=== PATIENT | male | born 1990 | race Caucasian/White ===

== ENCOUNTER 2018-01-02 13:45 | Emergency (ER) | payer MEDICAID, SELFPAY ==
[2018-01-02 13:47] VITALS: BP 148/78; PULSE 76; RESP 18; TEMP 36.6; O2SAT 96; BMI 42.4
--- NOTE | 2018-01-02 14:51 | ED.RN ---
Right facial droop noted by this nurse. Patient states he first noticed it yesterday at 1030.
--- NOTE | 2018-01-02 15:06 | ED.VISSUMM ---
- ER Visit Summary Date of Service: 01/02/18 Chief Complaint: Facial numbness and facial droop History of Present Illness: The patient is a 27 M who noted right facial numbness and facial droop yesterday. He denies any recent illness. He denies any extremity weakness. Patient has a history of PTSD and kidney stones. Physical Examination: Vital signs are unremarkable. Patient sitting upright in bed no acute distress. Heart is regular rate and rhythm. No lung sounds are clear. Abdomen is soft nontender. Neuro exam significant for right-sided facial droop. He is unable to raise his eyebrow on the right and unable to wrinkle his forehead on the right. He has decreased sensation to light touch on the right side of his face. Strength and sensation on his extremities is fully intact. 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 There is no need for significant workup at this time. He will be started on acyclovir and prednisone, first doses given here. Treatment Plan: [] Disposition: Discharge Impression: Villanueva's Palsy This note was generated with A[employer]igator Internet dictation software. It may contain incorrect words, spelling, and punctuation that were not noted in review of the chart prior to signing ED Disposition - Plan for ED Patient: Chief Complaint: Neuro S/Sx Referrals: Jessica Chen [Primary Care Provider] -
--- NOTE | 2018-01-02 15:09 | DCINST.ED_ITS ---
ED Disposition - Plan for ED Patient: Disposition: Home or Assisted Living Chief Complaint: Neuro S/Sx Instructions: ED [place] Palsy Prescriptions: Acyclovir 400 mg PO 5X/DAY #10 days Prednisone [Deltasone] 60 mg PO DAILY #15 tablet Referrals: Jessica Chen [Primary Care Provider] - 1-2 Weeks
[2018-01-02] MEDS: Acyclovir 200 MG Capsule 400 MG PO (15:18)
[2018-01-02 15:24] VITALS: PULSE 74; RESP 16; O2SAT 96
== END 2018-01-02 15:25 | disposition home or self-care (01) ==
PROVIDERS: Emergency Provider Emergency Medicine
DX: G51.0 Bell's palsy (principal); F43.10 Post-traumatic stress disorder, unspecified; E66.9 Obesity, unspecified; Z68.41 Body mass index [BMI] 40.0-44.9, adult; Z72.0 Tobacco use
CPT/HCPCS: 99283

== ENCOUNTER 2018-05-25 14:33 | Emergency (ER) | payer MEDICAID, SELFPAY ==
[2018-05-25 14:35] VITALS: BP 147/77; PULSE 97; PULSE 99; RESP 18; RESP 20; TEMP 36.7; O2SAT 94; O2SAT 95; BMI 45.1
--- NOTE | 2018-05-25 15:10 | ED.VISSUMM ---
- ER Visit Summary Date of Service: 05/25/18 Chief Complaint: Right ear pain History of Present Illness: The patient is a 27 M who started with right ear pain yesterday. He states he has had some drainage from the ear canal. No nasal congestion. Denies fever. He took nothing for it at home. Physical Examination: Vitals are reviewed. HEENT exam reveals right external ear canal swelling and drainage. TMs are clear. The rest of the exam is unremarkable Test Results: None performed Emergency Department Course and Treatment: Patient will be given Cortisporin otic for external otitis. He will follow-up with his PCP Treatment Plan: [] Disposition: Discharge Impression: External otitis This note was generated with [employer] dictation software. It may contain incorrect words, spelling, and punctuation that were not noted in review of the chart prior to signing ED Disposition - Plan for ED Patient: Chief Complaint: Ear Problem Referrals: Jessica Chen [Primary Care Provider] -
--- NOTE | 2018-05-25 15:11 | ED.DEP ---
ED Disposition - Plan for ED Patient: Disposition: Home or Assisted Living Chief Complaint: Ear Problem Instructions: ED Otitis Externa Prescriptions: Neomycin/Polymyxin B/Hydrocort [Mvatbtbp-Udjcoeamv-Jd Ear Susp] 4 drp OT TID #120 drops.susp Referrals: Joseph Ricketts,Jessica Valiente [Primary Care Provider] -
--- NOTE | 2018-05-25 15:13 | DCINST.ED_ITS ---
ED Disposition - Plan for ED Patient: Disposition: Home or Assisted Living Chief Complaint: Ear Problem Instructions: ED Otitis Externa Prescriptions: Neomycin/Polymyxin B/Hydrocort [Qsrctiqn-Kirtejizy-Vt Ear Susp] 4 drp OT TID # 120 drops.susp Referrals: Joseph Ricketts,Jessica Valiente [Primary Care Provider] -
[2018-05-25 15:18] VITALS: BP 135/78; PULSE 82; RESP 16; O2SAT 98
== END 2018-05-25 15:19 | disposition home or self-care (01) ==
PROVIDERS: Emergency Provider Emergency Medicine
DX: H60.91 Unspecified otitis externa, right ear (principal); F43.10 Post-traumatic stress disorder, unspecified; Z79.899 Other long term (current) drug therapy
CPT/HCPCS: 99282

== ENCOUNTER 2018-07-10 00:46 | Emergency (ER) | payer MEDICAID, SELFPAY ==
[2018-07-10 00:47] VITALS: BP 156/87; PULSE 113; RESP 27; TEMP 36.7; O2SAT 94; BMI 45.7
--- NOTE | 2018-07-10 01:10 | EKG12_ITS ---
Test Reason : REPEAT Blood Pressure : / mmHG Vent. Rate : 107 BPM Atrial Rate : 107 BPM P-R Int : 150 ms QRS Dur : 108 ms QT Int : 350 ms P-R-T Axes : 055 037 057 degrees QTc Int : 467 ms Sinus tachycardia Possible Inferior infarct , age undetermined Abnormal ECG Confirmed by DEANDRE BUSTAMANTE ([id number]), scientific editor KILLIAN LEE ([id number]) on 07/16/2018 1:53:22 PM Referred By: KIESHA Confirmed By:DEANDRE BUSTAMANTE
--- NOTE | 2018-07-10 01:27 | EKG12_ITS ---
Test Reason : CP Blood Pressure : / mmHG Vent. Rate : 106 BPM Atrial Rate : 106 BPM P-R Int : 122 ms QRS Dur : 102 ms QT Int : 356 ms P-R-T Axes : 042 023 047 degrees QTc Int : 472 ms Sinus tachycardia Otherwise normal ECG Confirmed by DEANDRE BUSTAMANTE ([id number]), editor in chief KILLIAN LEE ([id number]) on 07/16/2018 1:53:43 PM Referred By: JULIAN Confirmed By:DEANDRE BUSTAMANTE
--- NOTE | 2018-07-10 01:28 | ED.VISSUMM ---
- ER Visit Summary Date of Service: 07/10/18 Chief Complaint: right sided chest pain History of Present Illness: The patient is a 27 M who presents for 3-4 days of a cough, now with right-sided pleuritic chest pain. Patient states he has had a cough for the last 3-4 days productive of sputum and also pink tinged substance. He has not had any fever, congestion, rhinorrhea, abdominal pain, nausea or vomiting. Today he felt a pop in the right side of his chest and has been having right-sided pleuritic chest pain since then. It was not associated with coughing. He is not a smoker. He denies any history of coronary artery disease, asthma, COPD, diabetes, hypertension, history of DVT or PE. She has been trying cough medication without any relief. Physical Examination: Vital signs: afebrile, tachycardic, hemodynamically stable, no hypoxia on room air General: well nourished, well developed, in no distress Skin: warm, moist, no rash, no pallor HEENT: normocephalic and atraumatic; PERRL, EOMI, moist mucous membranes Cardiovascular: Tachycardic rate and regular rhythm without murmurs, no peripheral edema, 2+ pulses all distal extremities Respiratory: No increased work of breathing, lungs are clear to auscultation bilaterally, no rales, rhonchi or wheezing, tenderness to palpation of the right lateral ribs Abdominal: Abdomen is soft, nontender with normoactive bowel sounds, no guarding or rebound, no masses MSK: Moves all extremities, no deformities, normal strength Neuro: Awake and alert, oriented ?4. No facial droop, sensation and motor function intact and symmetric Test Results: Abnormal Lab Results 07/10/18 07/10/18 07/10/18 01:00 01:00 01:00 WBC 9.5 RBC 5.03 Hgb 15.0 Hct 45.3 MCV 90.1 MCH 29.8 MCHC 33.1 RDW 13.2 RDW Differential 43.5 Plt Count 239 MPV 10.6 Immature Gran % (Auto) MATTRESS WEAVER Neut % (Auto) MATTRESS WEAVER Lymph % (Auto) MATTRESS WEAVER Barren % (Auto) MATTRESS WEAVER Eos % (Auto) MATTRESS WEAVER Baso % (Auto) MATTRESS WEAVER Absolute Neuts (auto) 5.5 Absolute Lymphs (auto) 3.52 Total Counted 100 Neutrophils % (Manual) 58 Lymphocytes % (Manual) 37 Monocytes % (Manual) 3 Eosinophils % (Manual) 1 Blast Cells % 1 H* Diff Path Review May foll Reactive Lymphocytes 2+ Platelet Estimate ADEQUATE RBC Morphology NORM C+C D-Dimer Quant (PE/DVT) 0.29 Sodium 142 Potassium 3.6 Chloride 105 Carbon Dioxide 26.0 Anion Gap 11 BUN 13 Creatinine 1.13 Estim Creat Clear Calc 101.39 Est GFR (MDRD) Af Amer 99 Est GFR (MDRD) Non-Af 82 BUN/Creatinine Ratio 11.5 Glucose 106 Calcium 9.3 Troponin I < 0.015 Clinical Impression(s) from Imaging Studies Chest X-Ray 07/10/18 01:50 IMPRESSION: Normal x-ray examination of the chest. Electronically Signed: Bayron Power MD at 3:00 EDT , Service support , Emergency Department Course and Treatment: Patient is tachycardic and presents for a cough with pink tinged sputum, now with right-sided pleuritic chest pain. His EKG shows S1 and Q3 with tachycardia. D-dimer was checked to evaluate for possible PE. EKG showed no ischemic changes. D-dimer was negative. Labs were unremarkable except for 1% blasts on a manual peripheral blood smear. Chest x-ray showed no pneumonia, pneumothorax or other acute process to explain patient's right-sided pleuritic chest pain. Patient was well-appearing on reevaluation. Because of the 1% blasts on his peripheral smear, he was discussed with , who advised patient to call today to set up an appointment for very soon and either Dr. Gregorio or Dr. Rodriguez will follow up on his abnormal peripheral smear. This plan was discussed with the patient, and he stated he would definitely follow up. He was discharged home and will use OTC pain meds for his chest wall pain. Treatment Plan: [] Disposition: [] Impression: right chest wall pain, blasts on peripheral smear This note was generated with Auto Secureation software. It may contain incorrect words, spelling, and punctuation that were not noted in review of the chart prior to signing ED Disposition - Plan for ED Patient: Disposition: Home or Assisted Living Chief Complaint: Chest Pain Instructions: ED Strain Chest Wall Referrals: Florencio Gregorio DO [STAFF PHYSICIAN] - [facility],Jessica Valiente [Primary Care Provider] - Keep Pattie appointment Additional Instructions: Your blood work showed some abnormal cells that need to be followed up. Please call the office of Dr. Gregorio later this morning to schedule a follow-up appointment for as soon as possible. Your chest x-ray showed no abnormal findings concerning for pneumonia, a collapsed lung, or any other obvious cause of your right-sided chest pain. You most likely strained your chest wall from coughing the last few days. You may use vypt-qhh-ijgaccg pain medication as needed for your right side pain and cough medicine as needed for further cough. If you have any worsening of your condition or any new concerning symptoms, please return immediately to the emergency department for another evaluation.
[2018-07-10 01:39] VITALS: O2SAT 95
[2018-07-10 01:40] LABS: Basophil# 0.03 X10^3/uL; Eosinophil# 0.22 X10^3/uL; Hematocrit 45.3 % (40-54); Mean Corp Hgb Conc 33.1 g/gl (32-36); Mean Corpuscular Hgb 29.8 pg (27.0-32.0); Mean Corpuscular Volume 90.1 fL (80-94); Mean Platelet Vol. 10.6 fl (6.2-12.0); Monocyte# 0.54 X10^3/uL; Platelet Count 239 K/mm3 (150-450); RBC Distribution Width CV 13.2 % (11.6-14.6); RBC Distribution Width SD 43.5 fl (35.1-43.9); Red Blood Count 5.03 M/mm3 (4.6-6.2); White Blood Count 9.5 K/mm3 (4.4-11.0)
[2018-07-10 01:42] LABS: Differential Indicated SCAN CRITERIA MET; POSITIVE COUNT NO; POSITIVE DIFFERENTIAL NO; POSITIVE MORPHOLOGY YES
[2018-07-10 01:43] LABS: D-Dimer Quantitative (DVT/PE) 0.29 FEU/ug/m (0.27-0.49)
[2018-07-10 01:50] LABS: Anion Gap 11 (5-15); BUN 13 mg/dL (7-18); BUN/Creat Ratio 11.5 RATIO (10-20); Calcium,Total 9.3 mg/dL (8.5-10.1); Chloride 105 mmol/L (98-107); Creatinine, Serum 1.13 mg/dL (0.70-1.30); EST Glomerular Filtration Rate 82 mL/min (>60); Est Glom Filt Rate - Afr Amer 99 mL/min (>60); Estimated Creatinine Clearance 101.39 ml/min; Glucose 106 mg/dL (74-106); Potassium 3.6 mmol/L (3.5-5.1); Sodium Level 142 mmol/L (136-145)
[2018-07-10 02:30] LABS: Scan Smear per Review Criteria MANUAL DIFF
[2018-07-10 02:32] LABS: Eosinophil 1 % (0-5); Total Cells Counted 100 (MANUAL DIFF)
[2018-07-10 02:33] LABS: Platelet Estimate ADEQUATE (ADEQ); Reactive Lymphocyte 2+; Red Cell Morphology NORM C+C NORMAL (NORM C&C)
[2018-07-10 02:37] LABS: Lymphocyte # 3.52 X10^3/ul (4.0); Neutrophil # 5.51 X10^3/uL (2.7-7.7)
[2018-07-10 02:56] VITALS: BP 136/63; PULSE 96; RESP 23; O2SAT 94
--- NOTE | 2018-07-10 03:56 | ED.DEP ---
ED Disposition - Plan for ED Patient: Disposition: Home or Assisted Living Chief Complaint: Chest Pain Instructions: ED Strain Chest Wall Referrals: Joseph Ricketts,Jessica Valiente [Primary Care Provider] - Keep Pattie appointment Florencio Gregorio DO [STAFF PHYSICIAN] - 1 Day Additional Instructions: Your blood work showed some abnormal cells that need to be followed up. Please call the office of Dr. Gregorio later this morning to schedule a follow-up appointment for as soon as possible. Your chest x-ray showed no abnormal findings concerning for pneumonia, a collapsed lung, or any other obvious cause of your right-sided chest pain. You most likely strained your chest wall from coughing the last few days. You may use ewxh-mtb-wdxvixt pain medication as needed for your right side pain and cough medicine as needed for further cough. If you have any worsening of your condition or any new concerning symptoms, please return immediately to the emergency department for another evaluation.
--- NOTE | 2018-07-10 03:59 | DCINST.ED_ITS ---
ED Disposition - Plan for ED Patient: Disposition: Home or Assisted Living Chief Complaint: Chest Pain Instructions: ED Strain Chest Wall Referrals: Joseph Ricketts,Jessica Valiente [Primary Care Provider] - Keep Pattie appointment Florencio Gregorio DO [STAFF PHYSICIAN] - 1 Day Additional Instructions: Your blood work showed some abnormal cells that need to be followed up. Please call the office of Dr. Gregorio later this morning to schedule a follow-up appointment for as soon as possible. Your chest x-ray showed no abnormal findings concerning for pneumonia, a collapsed lung, or any other obvious cause of your right-sided chest pain. You most likely strained your chest wall from coughing the last few days. You may use xleg-org-kssryby pain medication as needed for your right side pain and cough medicine as needed for further cough. If you have any worsening of your condition or any new concerning symptoms, please return immediately to the emergency department for another evaluation.
[2018-07-10 04:08] VITALS: BP 103/57; PULSE 93; RESP 24; O2SAT 95
[2018-07-11 09:17] LABS: Neutrophil-Band 1 % (0-5); Neutrophil-Segmented 50 % (47-70)
[2018-07-11 09:18] LABS: Lymphocyte 46 % (19-41); Monocyte 2 % (0-10)
[2018-07-11 09:19] LABS: Absolute Neutrophil Count 4.8 X10^3/uL (2.0-7.7)
[2018-07-11 09:20] LABS: Absolute Lymphocyte Count 4.37 X10^3/ul (0.83-4.51)
[2018-07-11 14:31] LABS: Pathologist Review Reviewed
== END 2018-07-10 04:08 | disposition home or self-care (01) ==
PROVIDERS: Emergency Provider Emergency Medicine
DX: R07.89 Other chest pain (principal); R71.8 Other abnormality of red blood cells; E66.9 Obesity, unspecified; Z68.42 Body mass index [BMI] 45.0-49.9, adult; Z87.891 Personal history of nicotine dependence
CPT/HCPCS: 71046; 80048; 84484; 85025; 85379; 93005; 99284; A4216

== ENCOUNTER → 2022-05-05 | Outpatient (CLI) | payer MEDICAID, SELFPAY ==
--- NOTE | 2022-05-05 11:45 | RAD_ITS ---
EXAM: XR RIGHT ANKLE, 2 VIEWS CLINICAL INDICATION: PAIN Technologist Notes ANKLE PAIN AFTER KICKING A TRAILER TECHNIQUE: Frontal and lateral views of the right ankle. This report was created using SleepOut report generation technology. COMPARISON: None. FINDINGS: BONES/JOINTS: There is an enthesophyte involving the posterior superior calcaneus at the site of insertion of the Achilles tendon. No acute fracture. No subluxation. Normal alignment. Preservation of the joint space. No sclerotic or destructive changes observed. SOFT TISSUES: Unremarkable. No soft tissue swelling or gas. No radiopaque foreign body. RAD/Ankle 2 Views IMPRESSION: No acute findings in the right ankle. Electronically Signed: Stu Dawn MD at 17:03 EDT ,
[2022-05-05 13:15] LABS: Thyroid Stim Hormone (TSH) 0.69 uIU/mL (0.358-3.74)
== END | disposition home or self-care (01) ==
LOC: LAB 11:27
PROVIDERS: Visit Provider Nurse Practitioner Adult Health
DX: M25.579 Pain in unspecified ankle and joints of unspecified foot (principal); E03.9 Hypothyroidism, unspecified
CPT/HCPCS: 36415; 73600; 84443

== ENCOUNTER 2022-07-21 17:41 | Emergency (ER) | payer MEDICAID, SELFPAY ==
[2022-07-21 17:42] VITALS: BP 143/86; PULSE 80; RESP 16; TEMP 36.3; O2SAT 96; BMI 47.9
--- NOTE | 2022-07-21 17:50 | RAD_ITS ---
STUDY: X-RAY - RIGHT HAND, ATTENTION 2 FINGER REASON FOR EXAM: Male, 31 years old. trauma -- index finger right hand TECHNIQUE: 3 view(s) of the finger were obtained. COMPARISON: None. FINDINGS: Normal metacarpal head. Normal metacarpophalangeal joint. Normal proximal phalanx. Normal middle phalanx. Normal distal phalanx. Normal proximal interphalangeal joint. Normal distal interphalangeal joint. RAD/Finger(s) Min 2 Views IMPRESSION: Normal x-ray examination of the finger. Electronically Signed: Kyle Earl MD at 18:07 EDT ,
--- NOTE | 2022-07-21 17:50 | EX.ED.UPPERE ---
HPI History of Present Illness Chief Complaint: Upper Extremity Injury Informant: patient Narrative Narrative: Patient is concerned about injury to his right index fingertip. Yesterday he cut off a little bit of the skin on the tip on a mere in his bathroom. Today he had a heavy box landed on it and his finger got caught between the edge of a car trunk and the box. Range of motion is intact. No bleeding. He thinks tetanus is up-to-date. 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 Verified 05/05/22 10:46 Social History Smoking Status: Current some day smoker tobacco type: cigarettes and e-cigarettes ROS ROS ED Constitutional Constitutional ED: Denies chills or fever(s) Gastrointestinal Gastrointestinal: Denies nausea or vomiting Integumentary Reports Abrasions and other Details: Abrasion/partial shallow skin avulsion right index Neurologic Neurologic: Denies paresthesias or weakness Hematologic/Lymphatic Hematologic/Lymphatic: Denies easy bleeding or easy bruising EXAM Physical Exam Const Vital Signs: 07/21/22 17:42 07/21/22 17:42 Temperature 97.3 F L 97.3 F L Temperature Source Temporal Temporal Pulse Rate 80 80 Respiratory Rate 16 16 Blood Pressure 143/86 H 143/86 H Blood Pressure Mean 105 105 Pulse Ox 96 96 Oxygen Delivery Method Room Air Room Air Positive well nourished and well developed General Appearance ED: well developed and NAD HEENT normocephalic and atraumatic Resp normal respiratory effort Extremity full ROM Extremity Narrative: Superficial skin avulsion from lateral aspect of right index finger. Tendon function fully intact. Sensation intact. The finger itself is not notably swollen. There is no subungual hematoma. Neuro no sensory deficits noted Sensorium / Orientation: alert Motor Exam: strength 5/5 throughout Psych mental status grossly normal Skin Skin Narrative: See above. MDM MDM MDM Narrative Medical decision making narrative: Three-view x-ray of the patient's finger looked at by me and read by radiology shows no sign of acute fracture. I do not think the patient needs any specific treatment. He has a superficial avulsion of skin that will heal on its own. He should just keep it clean and relatively dry. We discussed signs of infection and reasons to return. Discharge Plan Triage Chief Complaint: Upper Extremity Injury ED Provider: Arthur Berry Dx/Rx/DC Orders Clinical Impression: Avulsion of skin of finger, Contusion of right index finger Prescriptions: No Action quetiapine [Seroquel] 400 MG tablet 400 mg PO QHS lithium carbonate 450 MG Tablet.Er 450 mg PO DAILY levothyroxine 25 MCG tablet 25 mcg PO DAILY vactvgsd-fzrhuuhrl-WB 10 ML drops,suspension 4 drp OT TID Qty: 120 0RF [facility] - 1 Week if not improving Disposition Disposition: Home, Self Care
== END 2022-07-21 18:37 | disposition home or self-care (01) ==
LOC: ED 17:56
PROVIDERS: Emergency Provider Emergency Medicine; Visit Provider Emergency Medicine
DX: S60.021A Contusion of right index finger without damage to nail, initial encounter (principal); F17.210 Nicotine dependence, cigarettes, uncomplicated; X58.XXXA Exposure to other specified factors, initial encounter
CPT/HCPCS: 73140; 99283

== ENCOUNTER → 2024-11-18 | Outpatient (CLI) | payer MEDICAID, SELFPAY ==
[2024-11-18 12:39] LABS: Hematocrit 47.9 % (40-54); Mean Corp Hgb Conc 33.4 g/dL (32-36); Mean Corpuscular Hgb 30.1 pg (27.0-32.0); Mean Corpuscular Volume 90.2 fL (80-94); Mean Platelet Vol. 10.4 fl (6.2-12.0); Platelet Count 194 K/mm3 (150-450); RBC Distribution Width CV 12.9 % (11.6-14.6); RBC Distribution Width SD 41.6 fl (35.1-43.9); Red Blood Count 5.31 M/mm3 (4.6-6.2); White Blood Count 8.7 K/mm3 (4.4-11.0)
[2024-11-18 13:21] LABS: AST(SGOT) 27 U/L (15-37); Alanine Aminotransfer ALT/SGPT 57 U/L (16-61); Albumin, Serum 3.7 g/dL (3.2-5.0); Alkaline Phosphatase 73 U/L (45-117); Anion Gap 5 (5-15); BUN 13 mg/dL (7-18); BUN/Creat Ratio 12.1 RATIO (10-20); Calcium,Total 8.9 mg/dL (8.5-10.1); Chloride 110 mmol/L (98-107); Cholesterol 166 mg/dL (200); Creatinine, Serum 1.07 mg/dL (0.70-1.30); EST Glomerular Filtration Rate 84 mL/min (>60); Est Glom Filt Rate - Afr Amer 102 mL/min (>60); Globulin 3.7 g/dL (2.2-4.2); Glucose 125 mg/dL (74-106); High Density Lipoprotein 42 mg/dL; Potassium 3.4 mmol/L (3.5-5.1); Protein, Total 7.4 g/dL (6.4-8.2); Sodium Level 138 mmol/L (136-145); T4 Free Direct 0.97 ng/dL (0.76-1.46); Triglycerides 213 mg/dL; Very Low Density Lipoprotein 43 mg/dL (5-40)
[2024-11-18 14:13] LABS: Hemoglobin A1c 5.2 % (3.8-5.6)
== END | disposition home or self-care (01) ==
LOC: VSLAB 10:37
PROVIDERS: PCP Nurse Practitioner Family; Visit Provider Nurse Practitioner Family
DX: E03.9 Hypothyroidism, unspecified (principal); E66.9 Obesity, unspecified
CPT/HCPCS: 36415; 80053; 80061; 82306; 83036; 84439; 84443; 85027; 97110

== ENCOUNTER 2024-11-25 15:30 | Outpatient (RCR) | payer MEDICAID, SELFPAY ==
--- NOTE | 2024-10-20 14:21 | HP.PTEVAL ---
Patient's Visit Information Visit Information Visit Information: MARIKA LOZOYA is a 34 year old M referred to Physical Therapy by DANIELLE Marrero with a diagnosis of RADICULOPATHY ,LUMBAR REGION. Date of Evaluation: 10/20/24 Physical Therapist: Unruly Warner, PT, Cert MDT, OCS Visit Plan Frequency: 2x /Week Duration: 4 Weeks Plan: PT INTERVENTIONS MIK EX'S ,DLS ,LE FLEXABILITY ,POSTURE/BODY MECHANICS AND MODALTIES Subjective Subjective: tHIS 34 y/o male presents to physical therapy with lumbar radiculopathy left leg. 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 This pain resolved after working out and time. Patient current pain has been going on for the last two months with no improvement. No injury or incident that he knows of to cause this back pain. His pain in located in the center of his back. Patient states the pain is worse on the left side and radiates down the back of his leg and calf. He describes the pain as a sharp burning. Seen did x-rays -. MRI needs PT thus recommend PT. Aggravating factors lifting ,bending ,standing .Alleviating factors resting and walking. Patient denies paresthesia/tingling -. Bowel/bladder -. Coughing/sneezing-. Patient sleeps good. Patient condition affects QOL and function. Patient goals to decrease pain. SOCIAL: single VOACTION: 2 [employer] OFF WORK[employer] JOB Pain Bilateral Back: Pain Intensity (Out of 10): 6 Pain Intensity Range: 10 Left Lower Extremity: Pain Intensity (Out of 10): 5 Pain Intensity Range: 10 Objective Objective: POSTURE: WFL GAIT: reciprocal pattern NEURO: denies paresthesia/tingling,reflexes L3-4 ,L4-5,L5-S1 1/3 PALAPTION: unremarkable FLEXABILITY:hamstrings min loss LUMBAR ROM: flexion min loss ,extension min loss ,side glides min loss MMT: quads/hams 4/5 .hip flexion 4/5 ,ankle 4/5 Special Tests L/S Slump test left side: Negative L/S Slump test right side: Negative L/S Left Straight Leg Raise: Negative L/S Right Straight Leg Raise: Negative Lumbar Standing: Flexion - Mechanical Response: No effect Lumbar Standing: Flexion - Symptoms During Testing: No effect Lumbar Standing: Flexion - Symptoms After Testing: No effect Lumbar Standing: Extension - Mechanical Response: No effect Lumbar Standing: Extension - Symptoms During Testing: Decreases Lumbar Standing: Extension - Symptoms After Testing: Better Lumbar Standing: Right Side Glides - Mechanical Response: No effect Lumbar Standing: Right Side [place] - Symptoms During Testing: No effect Lumbar Standing: Right Side [place] - Symptoms After Testing: No effect Lumbar Standing: Left Side [place] - Mechanical Response: No effect Lumbar Standing: Left Side [place] - Symptoms During Testing: No effect Lumbar Standing: Left Side [place] - Symptoms After Testing: No effect Lumbar Lying: Flexion - Mechanical Response: No effect Lumbar Lying: Flexion - Symptoms During Testing: Increases Lumbar Lying: Flexion - Symptoms After Testing: No worse Lumbar Lying: Extension - Mechanical Response: No effect Lumbar Lying: Extension - Symptoms During Testing: Decreases Lumbar Lying: Extension - Symptoms After Testing: Better Balance/Special Test Scores Oswestry Low Back Score: 17 Goals Goal 1:: Patient to be I with LUMBAR spine Goal Time Frame: 4-6 Weeks Goal 2:: Patient to improve lumbar ROM for function of recovery to lifting Goal Time Frame: 4-6 Weeks Goal 3:: Patient to improve back oswestry score by 5 points to improve function Goal Time Frame: 4-6 Weeks Goal 4:: Patient demonstrate 70% improvement with less pain and improved function Goal Time Frame: 4-6 Weeks Rehabilitation Potential Physical Therapy Diagnosis: This patient has possible disc with symptoms worse with bending ,lifting better with extension thus benefit from skilled PT Rehabilitation Potential: Good Anticipated Interventions Patient/Client Instruction: Educate patient on: Condition and Plan of Care For the Purpose of:: To decrease pain, To increase ROM, To improve muscle performance and motor function, To improve ability to perform ADL's, To improve performance and independence with ADL's, To improve ability of physical actions for home/community/work/leisure, To improve health of tissue, To decrease soft tissue restriction and To increase flexibility/ROM Therapeutic Exercise to Include: Strength training, Body mechanics, Postural training, Flexibilty training, Dynamic Lumbar Stabilization and Mik Exercises For the Purpose of:: To decrease pain, To increase ROM, To improve muscle performance and motor function, To improve ability to perform ADL's, To increase tolerance to activity/condition/position, To improve ability of physical actions for home/community/work/leisure, To improve health of tissue, To decrease soft tissue restriction and To increase flexibility/ROM TENS: Yes IF ES: Yes Cryotherapy (ice pack, ice massage): Yes Thermo therapy (hot pack): Yes Ultrasound (thermal/non thermal): Yes For the Purpose of:: To decrease pain, To increase ROM, To improve nutrient delivery to tissue and To increase oxygenation perfusion Text: Thank you for the opportunity to evaluate your patient. For Medicare and Medicare HMO plans, please review the plan of care and approve it. It will need to be FAXED BACK to us at [phone] for Medicare purposes. For Medicare only, by signing this I certify the plan of care. Please let me know if there are questions or concerns regarding this plan of care. Physician Signature: Date:
--- NOTE | 2024-11-25 15:54 | HP.PTDCSUM ---
Discharge Summary D/C summary: It has been my pleasure to treat MARIKA LOZOYA referred by DANIELLE Marrero, with the diagnosis of RADICULOPATHY ,LUMBAR REGION for a total of 9 visit(s). Discharge Date: Please see the following information for a summary of their discharge status. Subjective Subjective: PT has helped alot No pain Pain Bilateral Back: Pain Intensity (Out of 10): 0 Left Lower Extremity: Pain Intensity (Out of 10): 0 Overall Improvement % Improvement: 90 Objective Objective/Function: POSTURE: WFL GAIT: reciprocal pattern NEURO: denies paresthesia/tingling,reflexes L3-4 ,L4-5,L5-S1 1/3 PALAPTION: unremarkable FLEXABILITY:hamstrings min loss LUMBAR ROM: flexion WNL ,extension min loss ,side glides WFL MMT: quads/hams 4/5 .hip flexion 4/5 ,ankle 4/5 Goals Goal 1:: Patient to be I with LUMBAR spine Goal Progress: Goal Met Goal 2:: Patient to improve lumbar ROM for function of recovery to lifting Goal Progress: Goal Met Goal 3:: Patient to improve back oswestry score by 5 points to improve function Goal Progress: Goal Met Goal 4:: Patient demonstrate 70% improvement with less pain and improved function Goal Progress: Goal Met Plan Plan: D/C D/C Information d/c sentence: If there are questions or concerns regarding this patient's physical therapy, please feel free to call me at [phone]. Thank you for the referral of this patient. Sincerely, Unruly Warner, PT, Cert MDT, OCS Balance/Gait/Functional tests Balance/Special Test Scores Oswestry Low Back Score: 0 Improvement % Improvement: 90
== END 2024-11-25 19:00 | disposition home or self-care (01) ==
LOC: PT 15:30
PROVIDERS: Referring Provider Student in an Organized Health Care Education/Training Program; Visit Provider Student in an Organized Health Care Education/Training Program
DX: M54.16 Radiculopathy, lumbar region (principal)
CPT/HCPCS: 97110; 97161; 97530

== ENCOUNTER → 2025-02-17 | Outpatient (CLI) | payer MEDICAID, SELFPAY ==
[2025-02-17 12:44] LABS: Hemoglobin 15.6 g/dL (13.0-16.5); Mean Corp Hgb Conc 33.9 g/dL (32-36); Mean Corpuscular Hgb 30.3 pg (27.0-32.0); Mean Corpuscular Volume 89.3 fL (80-94); Mean Platelet Vol. 9.9 fl (6.2-12.0); Platelet Count 196 K/mm3 (150-450); RBC Distribution Width CV 12.7 % (11.6-14.6); RBC Distribution Width SD 41.5 fl (35.1-43.9); Red Blood Count 5.15 M/mm3 (4.6-6.2); White Blood Count 8.6 K/mm3 (4.4-11.0)
[2025-02-17 13:35] LABS: Hemoglobin A1c 5.4 % (<=5.6)
[2025-02-17 13:58] LABS: ALB/GLOB Ratio 1.4 RATIO (0.9-2.4); AST(SGOT) 33 U/L (<=37); Alanine Aminotransfer ALT/SGPT 54 U/L (<=46); Alkaline Phosphatase 66 U/L (40-129); Anion Gap 11 (5-15); BUN 11 mg/dL (4-19); BUN/Creat Ratio 10.4 RATIO (10-20); Calcium,Total 9.1 mg/dL (7.6-11.0); Carbon Dioxide 21.6 mmol/L (21.0-32.0); Chloride 107 mmol/L (98-108); Creatinine, Serum 1.05 mg/dL (0.70-1.20); EST Glomerular Filtration Rate 96 (>60); Globulin 2.8 g/dL (2.2-4.2); Glucose 128 mg/dL (70-99); Potassium 3.6 mmol/L (3.3-5.1); Protein, Total 6.8 g/dL (5.9-8.4); Sodium Level 140 mmol/L (133-145); Total Bilirubin 0.34 mg/dL (0.00-1.30)
[2025-02-17 14:02] LABS: Vitamin B12 532 pg/mL (180-914)
== END | disposition home or self-care (01) ==
LOC: VSLAB 11:59
PROVIDERS: PCP Nurse Practitioner Family; Visit Provider Nurse Practitioner Family
DX: E03.9 Hypothyroidism, unspecified (principal); E55.9 Vitamin D deficiency, unspecified; R73.9 Hyperglycemia, unspecified; K76.0 Fatty (change of) liver, not elsewhere classified
CPT/HCPCS: 36415; 80053; 82306; 82607; 83036; 84439; 84443; 85027

== ENCOUNTER → 2025-05-19 | Outpatient (CLI) | payer MEDICAID, SELFPAY ==
[2025-05-19 12:30] LABS: AST(SGOT) 44 U/L (<=37); Alanine Aminotransfer ALT/SGPT 77 U/L (<=46); Albumin, Serum 4.0 g/dL (3.5-5.0); Alkaline Phosphatase 67 U/L (40-129); Anion Gap 11 (5-15); BUN 12 mg/dL (4-19); BUN/Creat Ratio 12.7 RATIO (10-20); Calcium,Total 8.9 mg/dL (7.6-11.0); Carbon Dioxide 20.6 mmol/L (21.0-32.0); Chloride 107 mmol/L (98-108); Globulin 2.5 g/dL (2.2-4.2); Glucose 157 mg/dL (70-99); Potassium 3.9 mmol/L (3.3-5.1)
== END | disposition home or self-care (01) ==
LOC: VSLAB 10:29
PROVIDERS: PCP Nurse Practitioner Family; Visit Provider Nurse Practitioner Family
DX: R73.9 Hyperglycemia, unspecified (principal); K76.0 Fatty (change of) liver, not elsewhere classified
CPT/HCPCS: 36415; 80053; 83036

== ENCOUNTER → 2025-06-03 | Outpatient (CLI) | payer MEDICAID, SELFPAY | END | disposition home or self-care (01) | LOC: SL 19:42 | PROVIDERS: PCP Nurse Practitioner Family; Referring Provider Nurse Practitioner Family; Visit Provider Nurse Practitioner Family | DX: G47.10 Hypersomnia, unspecified (principal) | CPT/HCPCS: 95810 ==

== ENCOUNTER → 2025-06-30 | Outpatient (CLI) | payer MEDICAID, SELFPAY ==
--- OUTSIDE RECORDS SUMMARY | 2025-06-30 22:38 | XMS RPT_ITS | CCD ---
Author Organization [facility]iniSynd Care Team Providers Care Vineyard Tender Name Role Phone BORIS MOORE (BURNER TECHNICIAN) Attending Unavaila ble [facility] Referring Unavailable [facility] Primary Care Unavailable BORIS MOORE (BURNER TECHNICIAN) Attending Unavaila ble [facility] Referring Unavailable [facility] Primary Care Unavailable BORIS MOORE (BURNER TECHNICIAN) Attending Unavaila ble BORIS MOORE (BURNER TECHNICIAN) Referring Unavaila ble [facility] Primary Care Unavailable Fuad Billingsley Unavailable Unavailable Fuad Billingsley Unavailable Unavailable None, No PCP Unavailable Unavailable Required, No Pcp Unavailable Unavailable Fuad Billingsley Unavailable Unavailable Angela Allen Unavailable Unavail able Margaret Meeks Unavailable Unavailable Fuad Billingsley Unavailable Unavailable Unavailable Juliette Zamorano NP Unavailable [phone] [facility] Primary Care Provider Un available [employer] Primary Care Provider Un available Milton Schumacher Unavailable [phone] KOURTNEY SHERWOOD Referring Unavailable Milton Schumacher MD Unavailable Juliette Zamorano NP Unavailable Jaun SEAMER OPERATOR-CJuliette Primary Care Provider [phone] Jaun SEAMER OPERATOR-CJuliette Attending Provider [facility] Primary Care Pro vider Claudia Perez Attending Provider [phone] Claudia Perez Referring Provider KOURTNEY SHERWOOD Attending Unavailable MILTON SCHUMACHER Referring Unavailable DAHLIA HOLCOMB Attending Unavailable MILTON SCHUMACHER Referring Unavailable CAITY, CHIQUITA Referring Unavailable CAITY, CHIQUITA Referring Unavailable CHIQUITA JUAREZ Attending Unavailable VANIA VELASQUEZ Attending Unavailable Jaun SEAMER OPERATOR-C, Juliette Primary Care Provider Jaun SEAMER OPERATOR-C, Juliette Attending Provider Jaun SEAMER OPERATOR-C, Juliette Referring Provider Jaun SEAMER OPERATOR-C, Juliette Primary Care Provider Jaun SEAMER OPERATOR-C, Juliette Attending Provider Alexei SEAMER OPERATOR-C, Selina Attending Provider [facility] Unavailable Rodolfo Ortiz Attending Unavailable Jaun VSC, Juliette Primary Care Unavailabl e Jaun VSC, Juliette Attending Unavailabl e Jaun VSC, Juliette Primary Care Unavailabl e Jaun VSC, Juliette Attending Unavailabl e Jaun VSC, Juliette [facility] Un[facility] Claudia Bianchi Attending Unavailable Tash Claudia Referring Unavailable Jaun VSC, Juliette Primary Care Unavailabl e Jaun VSC, Juliette Attending Unavailabl e Jaun VSC, Juliette Referring Unavailabl e Jaun VSC, Juliette Primary Care Unavailabl e Jaun VSC, Juliette Attending Unavailabl e Jaun VSC, Juliette Primary Care Unavailabl e Jaun VSC, Juliette [facility] Unavailable TashClaudia Attending Unavailable Tash, Claudia Referring Unavailable Jaun VSC, Juliette Referring Unavailabl e Jaun VSC, Juliette Primary Care Unavailabl Selina Mccormick NP Attending Unavailable [facility], [facility] Referring Unavailable Claudia Bianchi Attending Unavailable Allergies Allergy Classification Reported Allergen(s) Allergy Type Date of Onset Reaction(s) Facility Opioid Agonists (1 source) Morphine Drug Allergy Other [facility] (20 sources) Morphine; Translations: [MORPHINE] Drug Allergy 5 Other: See Comments, Mental Status Change [employer] [facility] Rep[facility] (14 sources) Seasonal allergy; Translations: [SEASONAL ALLERGIES] Propensity to adverse reactions (disorder) 8 Itching [facility] Repository Medications Current Medications Medication Drug Class(es) Dates Sig (Normalized) Sig (Original) 24 hr buPROPion hydrochloride 150 mg extended release oral tablet (12 sources) Aminoketone Start: 06-19-2025 take 1 tablet by mouth once daily in the morning Bupropion Hcl (Wellbutrin Xl) 150 mg tablet extended release 24 hr Active 150 mg PO EVERY MORNING June 19, 2025 12:00am Start: 03-27-2023 take 1 tablet by tova th once daily in the morning buPROPion XL (WELLBUTRIN XL) 150 mg 24 hr tablet TAKE 1 TABLET BY MOUTH ONCE DAILY IN THE MORNING 03/27/2023 Active Comment on above: TAKE 1 TABLET BY TOVA TH ONCE DAILY IN THE MORNING cholecalciferol 0.125 mg oral capsule (1 source) Vitamin D Start: take 1 capsule by mouth once daily Cholecalciferol (Vitamin D3) 125 mcg (5,000 unit) capsule Active 125 ug PO daily June 19, 2025 12:00am dicyclomine hydrochloride 10 mg oral tablet (7 sources) Anticholinergic Start: 024 Dicyclomine 10 mg capsule Active mg PO September 01, 2024 12:00am Start: 01-18-2021 take 1 tablet by tova th at mealtime as needed Dicyclomine HCl - 20 MG Oral Tablet TAKE 1 TABLET 1-3 TIMES A DAY WITH MEALS NEEDED Quantity: 90 Refills: 3 Ordered: 18-Jan-2021 Malorie Bergeron Start : 18-Jan-2021 Active doxycycline monohydrate 100 mg oral tablet (1 source) Tetracycline-class Drug Start: 06-26-2024 End: 07-01-2024 take 1 tablet by mouth twice daily doxycycline monohydrate 100 mg tablet Indications: Bacterial pneumonia Take 1 tablet by mouth two times a day for 5 days. 10 tablet 06/26/2024 07/01/2024 Active ketorolac tromethamine 5 mg/ml ophthalmic solution (1 source) Nonsteroidal Anti-inflammatory Drug, Cyclooxygenase Inhibitor Start: 03-23-2021 End: 04-01-2021 take 1 drop(s) into the eye(s) four times daily Acular 0.5% ophthalmic solution ; 1 drop(s) in each affected eye 4 times a day Quantity: 1 Refills: 0 Ordered: 23-Mar-2021 Angela Allen Start: 23-Mar-2021 End: 01-Apr-2021 Generic Substitution Allowed Comments: For the eye. Comment on above: For the eye. levothyroxine (20 sources) l-Thyroxine Start: 09-01-2024 take 1 tablet by mouth once daily Levothyroxine 50 mcg tablet Active 50 ug PO daily September 01, 2024 12:00am Start: 10-07-2019 take 1 tablet by tova th in the morning Levothyroxine Sodium 50 MCG Oral Tablet TAKE 1 TABLET BY MOUTH IN THE MORNING Quantity: 30 Refills: 0 DO Start : 07-Oct-2019 Active Start: 03-20-2019 take 1 tablet by tova th once daily levothyroxine (SYNTHROID) 100 mcg tablet Indications: Hypothyroidism, acquired Take 1 tablet by mouth once daily. 90 tablet 03/20/2019 Active Start: 05-25-2018 End: 09-01-2024 take 1 tablet by mouth once daily Levothyroxine 25 MCG tablet Discontinued 25 ug PO DAILY May 25, 2018 12:00am September 01, 2024 10:10am Comment on above: Take 1 tablet by tova th once daily. polymyxin b 61203 unt/ml / trimethoprim 1 mg/ml ophthalmic solution (1 source) Dihydrofolate Reductase Inhibitor Antibacterial, Polymyxin-class Antibacterial Start: End: 4 take 1 drop(s) into the eye(s) every four hours trimethoprim-polym yxin (POLYTRIM) 10,000 unit- 1 mg/mL ophthalmic solution Indications: [place] eye disease of left eye Use 1 Drop in the left eye every 4 hours for 7 days. 10 mL 0 01/21/2024 01/28/2024 Active Comment on above: Use 1 Drop in the le ft eye every 4 hours for 7 days. QUEtiapine 400 mg oral tablet (20 sources) Atypical Antipsychotic Start: 5 take 1 tablet by mouth twice daily Quetiapine (Seroquel) 100 mg tablet Active 100 mg PO TWICE A DAY June 19, 2025 12:00am Start: 03-27-2023 take 1 tablet by tova th every twelve hours QUEtiapine (SEROQUEL) 100 mg tablet Take 1 tablet by mouth every 12 hours 6am/6pm. 03/27/2023 Active Start: 08-01-2021 take 1 tablet by tova th twice daily QUEtiapine Fumarate 100 MG Oral Tablet Take 1 tablet twice daily Quantity: 0 Refills: 0 Ordered: 01-Aug-2021 StefanFuad espinosa DO Start : 01-Aug-2021 Active Start: 07-09-2015 End: 06-19-2025 take 1 tablet by mouth at bedtime Quetiapine (Seroquel) 400 mg tablet Active 400 mg PO AT BEDTIME June 19, 2025 9:02am Comment on above: Take 1 tablet by tova th every 12 hours 6am/6pm. topiramate 100 mg oral tablet (17 sources) Start: 06-19-2025 take 1 tablet by mouth once daily Topiramate (Topamax) 100 mg tablet Active 100 mg PO daily June 19, 2025 12:00am Start: 03-11-2019 take 1 tablet by tova th once daily topiramate (TOPAMAX) 50 mg tablet Take 1 tablet by mouth once daily. 03/11/2019 Active take 7 tablets by mo uth once daily Topamax 50 mg oral tablet ; orally once a day Quantity: 0 Refills: 0 Ordered: 11-Oct-2020 Terry Thompson Generic Substitution Allowed Comment on above: Take 1 tablet by tova th once daily. Completed/Discontinued Medications Medication Drug Class(es) Dates Sig (Normalized) Sig (Original) amoxicillin 875 mg / clavulanate 125 mg oral tablet (1 source) Penicillin-class Antibacterial Start: 06-01-2019 End: 06-10-2019 take 1 tablet by mouth every twelve hours Augmentin 875 mg-125 mg oral tablet ; 1 tab(s) orally every 12 hours x 10 days Quantity: 20 Refills: 0 Ordered: 01-Jun-2019 Mauricio Donato Start: 01-Jun-2019 End: 10-Jun-2019 Status: Other Generic Substitution Allowed Comments: Finish all this medication unless otherwise directed by prescriber.Take with food or milk. Comment on above: Finish all this medi cation unless otherwise directed by prescriber.Take with food or milk. Echinacea 500 mg cap (8 sources) Start: 03-21-2013 End: 09-23-2024 take 1 capsule by mouth every week Echinacea 500 mg cap Take by mouth once each week. 0 03/21/2013 09/23/2024 Discontinued Start: 03-21-2013 take 1 capsule by [facility] every week Echinacea 500 mg cap Take by mouth once each week. 0 03/21/2013 Active Comment on above: Take by mouth once e ach week. hydrocortisone 10 mg/ml / neomycin 3.5 mg/ml / polymyxin b [id number] unt/ml otic suspension (6 sources) Aminoglycoside Antibacterial, Polymyxin-class Antibacterial, Corticosteroid Start: 05-25-2018 End: 09-01-2024 Pddsckpg-Xpcivwldt-Xj 10 ML drops,suspension Discontinued 4 NMA OT THREE TIMES A DAY 120 0 May 25, 2018 12:00am September 01, 2024 10:10am lithium carbonate 150 mg oral capsule (19 sources) Start: 08-09-2020 Citrus Carbonate 150 MG Oral Capsule Quantity: 0 Refills: 0 Ordered: 09-Aug-2020 Fuad Billingsley DO Start : 09-Aug-2020 Active Start: 08-09-2020 Citrus Carbon ate 150 MG Oral Capsule Refills: 0 Fuad Billingsley DO Start : 09-Aug-2020 Active Start: 01-02-2018 End: 09-23-2024 take 1 tablet by mouth once daily Citrus Carbonate 450 MG tablet extended release Discontinued 450 mg PO DAILY January 02, 2018 1:00am September 01, 2024 10:10am take 7 tablets by [facility] three times daily lithium 450 mg oral tablet, extended release ; orally 3 times a day Quantity: 0 Refills: 0 Ordered: 11-Oct-2020 Terry Thompson Generic Substitution Allowed Comment on above: Take 450 mg by mouth once daily. In the evening. ofloxacin 3 mg/ml otic solution (1 source) Quinolone Antimicrobial Start: 06-01-20 19 End: 06-10-20 ofloxacin 0.3% otic solution ; 5 drop(s) in each affected ear 2 times a day x 10 days Quantity: 1 Refills: 0 Ordered: 01-Jun-2019 Mauricio Donato Start: 01-Jun-2019 End: 10-Jun-2019 Status: Other Generic Substitution Allowed Comments: For the ear. Comment on above: For the ear. traZODone hydrochloride 50 mg oral tablet (8 sources) Serotonin Reuptake Inhibitor Start: 03-11-20 End: 11-19-20 24 take 1 tablet by mouth every twenty-four hours as needed traZODone (DESYREL) 50 mg tablet Take 1 tablet by mouth at bedtime as needed. 03/11/2019 09/23/2024 Discontinued Comment on above: Take 1 tablet by tova th at bedtime as needed. Problems Active Problems Problem Classification Problem Date Documented Da te Episodic/Chronic Acute and chronic tonsillitis (11 sources) Enlarged tonsil; Translations: [Hypertrophy of tonsils] Onset: 10-18-2013 10-31-2021 Chronic Anxiety disorders (11 sources) Posttraumatic stress disorder; Translations: [Post-traumatic stress disorder, unspecified] Onset: 06-04-2013 06-04-2013 Chronic Contraceptive and procreative management (4 sources) Patient encounter status; Translations: [Encounter for other general counseling and advice on contraception] Onset: 03-12-2025 09-23-2024 Episodic Diabetes mellitus without complication (1 source) Hyperglycemia, unspecified; Translations: [Hyperglycemia, unspecified] Onset: 05-25-2025 Episodic Esophageal disorders (3 sources) Gastro-esophageal reflux disease with esophagitis; Translations: [Reflux esophagitis] Chronic Genitourinary symptoms and ill-defined conditions (3 sources) Polyuria; Translations: [Polyuria] Episodic Inflammation; infection of eye (except that caused by tuberculosis or sexually transmitteddisease) (1 source) Conjunctivitis; Translations: [Other mucopurulent conjunctivitis, left eye] 01-21-2024 Episodic Miscellaneous mental health disorders (17 sources) Psychogenic hyperventilation; Translations: [Other somatoform disorders] Onset: 06-04-2013 06-04-2013 Chronic Mood disorders (19 sources) Mixed bipolar affective disorder; Translations: [Bipolar I disorder, most recent episode (or current) mixed, unspecified] Onset: 03-23-2017 03-23-2017 Chronic Open wounds of extremities (5 sources) Open wound of finger; Translations: [Unspecified open wound of unspecified finger without damage to nail, initial encounter] 07-29-2022 Episodic Other ear and sense organ disorders (2 sources) Asymmetrical sensorineural hearing loss; Translations: [Sensorineural hearing loss, bilateral] 05-01-2024 Chronic Other ear and sense organ disorders (1 source) Sensorineural hearing loss, bilateral; Translations: [ASNHL (asymmetrical sensorineural hearing loss)] Onset: 05-21-2024 Chronic Other ear and sense organ disorders (2 sources) Tinnitus of left ear; Translations: [Tinnitus, left ear] 05-01-2024 Episodic Other ear and sense organ disorders (1 source) Abnormal auditory perception; Translations: [Other abnormal auditory perceptions, bilateral] 05-01-2024 Episodic Other ear and sense organ disorders (1 source) Bilateral tinnitus; Translations: [Tinnitus, bilateral] 05-01-2024 Episodic Other ear and sense organ disorders (1 source) Ear pressure sensation; Translations: [Other specified disorders of ear, bilateral] 05-01-2024 Episodic Other ear and sense organ disorders (1 source) Tinnitus, left ear; Translations: [Tinnitus, left ear] Onset: 05-21-2024 Episodic Other gastrointestinal disorders (3 sources) Irritable bowel syndrome; Translations: [Irritable bowel syndrome] Chronic Other nutritional; endocrine; and metabolic disorders (2 sources) Obesity; Translations: [Morbid obesity] Chronic Other nutritional; endocrine; and metabolic disorders (1 source) Severe obesity; Translations: [Morbid obesity] Chronic Other nutritional; endocrine; and metabolic disorders (11 sources) Morbid obesity; Translations: [Morbid (severe) obesity due to excess calories] Onset: 09-13-2015 09-13-2015 Chronic Other nutritional; endocrine; and metabolic disorders (11 sources) Body mass index 40+ - severely obese; Translations: [Morbid (severe) obesity due to excess calories] Onset: 12-12-2018 12-12-2018 Chronic Other nutritional; endocrine; and metabolic disorders (3 sources) Excessive thirst; Translations: [Polydipsia] Episodic Pneumonia (except that caused by tuberculosis or sexually transmitted disease) (1 source) Bacterial pneumonia; Translations: [Unspecified bacterial pneumonia] 06-26-2024 Episodic Residual codes; unclassified (13 sources) Obstructive sleep apnea syndrome; Translations: [Obstructive sleep apnea (adult) (pediatric)] Onset: 10-18-2013 10-31-2021 Chronic Comment on above: AHI 42.7 Residual codes; unclassified (1 source) Obstructive sleep apnea (adult) (pediatric); Translations: [Obstructive sleep apnea (adult) (pediatric)] Onset: 06-23-2025 Chronic Residual codes; unclassified (1 source) Hypersomnia, unspecified; Translations: [Hypersomnia, unspecified] Onset: 06-12-2025 Chronic Residual codes; unclassified (4 sources) Needs influenza immunization; Translations: [Need for prophylactic vaccination and inoculation against influenza] Episodic Substance-related disorders (11 sources) Cannabis-induced anxiety disorder; Translations: [Cannabis abuse with cannabis-induced anxiety disorder] Onset: 03-23-2017 03-23-2017 Chronic Superficial injury; contusion (12 sources) Abrasion of left cornea; Translations: [Superficial injury of cornea] 03-23-2021 Episodic Syncope (6 sources) Syncope; Translations: [Syncope and collapse] 07-11-2015 Episodic Thyroid disorders (6 sources) Hypothyroidism; Translations: [Hypothyroidism, unspecified] Onset: 08-19-2024 09-01-2024 Chronic Unclassified (2 sources) Morbid (severe) obesity due to excess calories Onset: 12-12-2018 Unclassified (2 sources) LEFT EYE PAIN 03-23-2021 Comment on above: LEFT EYE PAIN Unclassified (1 source) 6 MONTH F/U 01-27-2021 Comment on above: 6 MONTH F/U Unclassified (1 source) 4 TO 6 MONTHS 03-22-2021 Comment on above: 4 TO 6 MONTHS Unclassified (1 source) Abrasion of left cornea, initial encounter 03-23-2021 Unclassified (1 source) Low back pain, unspecified; Translations: [Low back pain, unspecified] Onset: 09-11-2024 Past or Other Problems Problem Classification Problem Date Documented Date Episodic/Chronic Anxiety disorders (11 sources) Outbursts of anger; Translations: [Irritability and anger] Onset: 02-03-2015 02-03-2015 Episodic Biliary tract disease (11 sources) Biliary calculus; Translations: [Other cholelithiasis without obstruction] Onset: 08-19-2015 08-19-2015 Episodic Other screening for suspected conditions (not mental disorders or infectious disease) (11 sources) Liver function tests abnormal; Translations: [Other specified abnormal findings of blood chemistry] Onset: 09-13-2015 09-13-2015 Episodic Residual codes; unclassified (10 sources) Sleep apnea; Translations: [Sleep apnea, unspecified] Onset: 01-20-2013 Resolved: 10-18-2013 10-18-2013 Chronic Residual codes; unclassified (11 sources) Auditory hallucinations; Translations: [Auditory hallucinations] Onset: 02-03-2015 02-03-2015 Episodic Spondylosis; intervertebral disc disorders; other back problems (20 sources) Lumbar radiculopathy; Translations: [Thoracic or lumbosacral neuritis or radiculitis, unspecified] Onset: 07-21-2016 07-21-2016 Episodic NEGATED: Highlighted row has not occurred!Residual codes; unclassified (2 sources) Disease Episodic Results Test Name Value Interpretation Reference Range Facility Pulmonary Visit Reporton Pulmonary Visit Report [facility] [address] [place] [address] OFFICE VISIT Date of Service: 06/19/25 MR#: [id number] Acct: [id number] Name: MARIKA LOZOYA Rep #: [id number] : 1990 Provider: NOMI Linda Age/Sex: 34/M Location: [facility] Status: Signed Assessment and Plan Assessment and Plan (1) SURESH (obstructive sleep apnea): Status: Acute Comment: AHI 42.7 Plan: New. Lengthy discussion about the pathophysiology of obstructive sleep apnea. We discussed the risks of untreated sleep apnea as well as the benefits. We discussed treatment options, I do not believe that a dental appliance is appropriate for this patient as he already has an underbite and continues to experience severe sleep apnea. This was explained to the patient, who confirms that he understands. I also explained that PAP therapy is gold standard. He is agreeable to a titration study. Once recommendations are available for review, appropriate settings and machine will be ordered. Initial goal will be to wear PAP at least 4 hours nightly. Ultimately, it should be worn any time spent sleeping. I have encouraged the patient to call the office with any difficulties acclimating to PAP therapy. Follow up in the office in 3 months, at which time I anticipate the patient will be on PAP therapy for 6-8 weeks. (2) Morbid obesity: Status: Chronic Plan: We discussed the relationship between obesity and obstructive sleep apnea. With weight loss, the patient's sleep apnea would be improved or potentially alleviated. Given that the patient has concomitant diagnoses of morbid obesity with obstructive sleep apnea, he would be appropriate for Zepbound for weight loss. I will defer the decision to his PCP, as this will require counseling and close monitoring. The patient conveys understanding and will follow-up with the PCP. He is also aware that with significant weight loss we would need to repeat a sleep test to confirm if the sleep apnea is improved or resolved. (3) Bipolar 1 disorder: Status: Chronic Plan: This complicates exam, plan, care and prognosis. The patient has expressed some concern with ability to tolerate a fullface mask. He has bipolar 1 disorder may make it difficult to be compliant with recommended therapies. I asked him to be open in conversation with the techs that are fitting him with a mask during his sleep test. He conveys understanding and is agreeable. I have also encouraged him to communicate frequently with us if he is struggling to be compliant with therapy. Plan Details Additional Comments: This note was generated with [employer] dictation software. It may contain incorrect words, spelling, and punctuation that were not noted in checking the note before signing. I have spent 46 minutes today reviewing labs, records and history. Time includes coordinating care, interpretation of tests, discussion with patient's other health care providers via telephone. This also includes time I spent with the patient for exam, treatment plan and education as well as documenting clinical information. Thank you for the referral and the opportunity to participate in this patient's care. Follow Up: 3 Months HPI Sleep problems Chief Complaint: Sleep test results HPI Comments Details: This pleasant 34-year-old male presents to the office today for initial consultation regarding concern for obstructive sleep apnea. He is ambulatory and on room air. The patient reports that he was previously diagnosed with sleep apnea back in 2009. Per his report he was on a waiting list to get a machine but never received 1. He then moved and was on a w aiting list at the new location. He has never been set up with a PAP device. The patient admits that he does snore. He has awakened himself by snoring. He has previously awakened himself gasping for air. He has not had witnessed apneic events while sleeping. He sometimes feels rested. He naps almost daily. He denies any difficulty with nocturia. He does admit to having difficulty with dry mouth. 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 He occasionally smokes cigars. He also occasionally vapes. He states that the frequency of cigars and vaping depends on the stress I am under. He has never seen a nursing instructor. He has never been prescribed an inhaler. Past medical family history significant for: Mother has diabetes, she snores, previously was on oxygen and has an albuterol inhaler following COVID. Father has hypertension, frequent cough, snores and probably has sleep apnea. He has 2 brothers, one of them has hypertension. He has a sister. He states that all of his siblings snore. He has 4 children, the oldest son has diabetes type 2, second oldest has good health. Third oldest son has asthma. The youngest chil (more content not included)... Normal [facility] Anion gap in Serum or Plasma [facility] 05-19-2025 Anion gap [Moles/Vol] 11 mmol/L 03-19 [facility] BUN/creatinine ratioOrdered By: [facility] on 05-19-2025 Urea nitrogen/Creatinine [Mass ratio] 12.7 mg/mg 08-24 [facility] Bilirubin, totalOrdered By: [facility] on 05-19-2025 Bilirubin [Mass/Vol] 0.29 mg/dL 0.00-1.30 [facility] Carbon dioxide, total [Moles /volume] in Central venous bloodOrdered By: [facility] Juliette Zamorano on 05-19-2025 CO2 [Moles/Vol] 20.6 mmol/L Low 21.0-32.0 [facility] Chloride assayOrdered By: [facility] Juliette Zamorano on 05-19-2025 Chloride [Moles/Vol] 107 mmol/L 98-108 [facility] Comprehensive Metabolic Prof ilon 05-19-2025 Albumin [Mass/Vol] 4.0 g/dL Normal 3.5-5.0 [facility] Comment on above: Performed By: #### L 500.4050, L501.9985 ####[facility] [address] [place], [place], [id number] Albumin/Globulin [Mass ratio] 1.6 {ratio} Normal 0.9-2.4 [facility] Comment on above: Performed By: #### L 500.4050, L501.85 ####[facility] [address] [place], [address] ALK PHOS 67 U/L Normal 40-129 [facility] Comment on above: Performed By: #### L 500.4050, L501.85 ####[facility] [address] [place], [address] ALT [Catalytic activity/Vol] 77 U/L High <=46 [facility] Comment on above: Performed By: #### L 500.4050, L5.9985 ####[facility] [address] [place], [address] AST [Catalytic activity/Vol] 44 U/L High <=37 [facility] Comment on above: Performed By: #### L 500.4050, L5.85 ####[facility] [address] [place], [address] Bilirubin [Mass/Vol] 0.29 mg/dL Normal 0.00-1.30 [facility] Comment on above: Performed By: #### L 500.4050, L501.85 ####[facility] [address] [place], [address] BUN/CRE 12.7 RATIO Normal 10-20 [facility] Comment on above: Performed By: #### L 500.4050, L5.85 ####[facility] [address] [place], [address] Calcium [Mass/Vol] 8.9 mg/dL Normal 7.6-11.0 [facility] Comment on above: Performed By: #### L 500.4050, L501.9985 ####[facility] [address] [place], [address] Chloride [Moles/Vol] 107 mmol/L Normal 98-108 [facility] Comment on above: Performed By: #### L 500.4050, L501.9985 ####[facility] [address] [place], [address] CO2 [Moles/Vol] 20.6 mmol/L Low 21.0-32.0 [facility] Comment on above: Performed By: #### L 500.4050, L501.9985 ####[facility] [address] [place], [address] Creatinine [Mass/Vol] 0.96 mg/dL Normal 0.70-1.20 [facility] Comment on above: Performed By: #### L 500.4050, L501.9985 ####[facility] [address] [place], [address] GAP 11 Normal 5-15 [facility] Comment on above: Performed By: #### L 500.4050, L501.9985 ####[facility] [address] [place], [address] GFR/1.73 sq M.predicted among non-blacks MDRD (S/P/Bld) [Vol rate/Area] 106 mL/min/{1.73_m2} Normal >60 [facility] Comment on above: Result Comment: mL/m in/1.73m2 CKD-EPI Creatinine Equation (2020) Performed By: #### L 500.4050, L501.9985 ####[facility] [address] [place], [address] Globulin (S) [Mass/Vol] 2.5 g/dL Normal 2.2-4.2 [facility] Comment on above: Performed By: #### L 500.4050, L501.9985 ####[facility] [address] [place], [address] Glucose [Mass/Vol] 157 mg/dL High 70-99 [facility] Comment on above: Performed By: #### L 500.4050, L501.9985 ####[facility] [address] [place], [address] Potassium [Moles/Vol] 3.9 mmol/L Normal 3.3-5.1 [facility] Comment on above: Performed By: #### L 500.4050, L501.9985 ####[facility] [address] [place], [address] Sodium [Moles/Vol] 138 mmol/L Normal 133-145 [facility] Comment on above: Performed By: #### L 500.4050, L501.9985 ####[facility] [address] [place], [address] T PROT 6.5 g/dL Normal 5.9-8.4 [facility] Comment on above: Performed By: #### L 500.4050, L501.9985 ####[facility] [address] [place], [address] Urea nitrogen [Mass/Vol] 12 mg/dL Normal 4-19 [facility] Comment on above: Performed By: #### L 500.4050, L501.9985 ####[facility] [address] [place], [address] Glomerular filtration rate ( GFR) estimation/1.73 sq m using serum, plasma, or whole bOrdered By: [facility] Juliette Zamorano on 05-19-2025 GFR/1.73 sq M.predicted among non-blacks MDRD (S/P/Bld) [Vol rate/Area] 106 mL/min/{1.73_m2} >60 [facility] Comment on above: mL/min/1.73m2 CKD-EP I Creatinine Equation (2020) Hemoglobin A1con 05-19-2025 HbA1c (Bld) [Mass fraction] 5.4 % Normal <=5.6 [facility] Comment on above: Result Comment: Norm al < 5.7 % Prediabetic 5.7 - 6.4 % Diabetic >or= 6.5 % Please note range changes. Performed By: #### L 500.4050, L501.9985 ####[facility] [address] [place], [address] Hemoglobin A1c percentageOrd ered By: [facility] Juliette Zamorano on 05-19-2025 HbA1c (Bld) [Mass fraction] 5.4 % <5.7 [facility] Comment on above: Normal < 5.7 % Predi abetic 5.7 - 6.4 % Diabetic >or= 6.5 % Please note range changes. Laboratory - Chemistry and C hemistry - challengeOrdered By: [facility] Juliette Zamorano on 05-19-2025 AST [Catalytic activity/Vol] 44 U/L High <38 [facility] Potassium measurement (mass/ volume)Ordered By: [facility] on 05-19-2025 Potassium (Unsp spec) [Mass/Vol] 3.9 mmol/L 3.3-5.1 [facility] Serum creatinine measurement (mass/volume)Ordered By: [facility] Juliette Zamorano on 05-19-2025 Creatinine [Mass/Vol] 0.96 mg/dL 0.70-1.20 [facility] Serum globulin measurementOr dered By: [facility] Juliette Zamorano on 05-19-2025 Globulin (S) [Mass/Vol] 2.5 g/dL 2.2-4.2 [facility] Serum glucose measurement (m ass/volume)Ordered By: [facility] Juliette Zamorano on 05-19-2025 Glucose [Mass/Vol] 157 mg/dL High 70-99 [facility] Serum or plasma alanine whitman otransferase (ALT) measurementOrdered By: [facility] Juliette Zamorano on 05-19-2025 ALT [Catalytic activity/Vol] 77 U/L High <47 [facility] Serum or plasma albumin delphine urement (mass/volume)Ordered By: [facility] Juliette Zamorano on 05-19-2025 Albumin [Mass/Vol] 4.0 g/dL 3.5-5.0 [facility] Serum or plasma albumin/glob ulin mass ratioOrdered By: [facility] Juliette Zamorano on 05-19-2025 Albumin/Globulin [Mass ratio] 1.6 {ratio} 0.9-2.4 [facility] Serum or plasma alkaline ely sphatase measurementOrdered By: [facility] on 05-19-2025 ALP [Catalytic activity/Vol] 67 U/L 40-129 [facility] Serum or plasma calcium delphine urement (mass/volume)Ordered By: [facility] 05-19-2025 Calcium [Mass/Vol] 8.9 mg/dL 7.6-11.0 [facility] Serum or plasma urea nitroge n measurement (mass/volume)Ordered By: [facility] on 05-19-2025 Urea nitrogen [Mass/Vol] 12 mg/dL 4-19 [facility] Sodium levelOrdered By: [facility] 05-19-2025 Sodium [Moles/Vol] 138 mmol/L 133-145 [facility] Total proteinOrdered By: [facility] 05-19-2025 Protein [Mass/Vol] 6.5 g/dL 5.9-8.4 [facility] CNOVon 03-12-2025 CNOV Office Visit (ANDRBE ) ----- MARIKA LOZOYA ([id number]) 1990 M Date Time Provider Department 03/12/25 1:30 PM ANDROLOGY [employer] ANDRBE During your visit today, we recorded the following information about you: Yadira Her 03/12/2025 12:59 PM Signed Post Vasectomy Analysis Yadira Her Referring Provider: CHIQUITA JUAREZ [[id number]] Allergies As of Date: 03/12/2025 Noted Allergy Reaction MORPHINE 07/28/2015 1 - Mental Status Change Comments: States was twitching and blacked out SEASONAL ALLERGIES 07/10/2018 9 - Itching Date Reviewed: 11/28/2024 Reviewed by: Penny Cooley MA - Fully Assessed Visit Diagnosis:Encounter for sterilization [Z30.2] Order(s):POST VASEC SCREEN [SQSEPOST] Order #: [id number]. #:[id number]: 1 Prescriptions as of 03/12/2025 - buPROPion XL (WELLBUTRIN XL) 150 mg 24 hr tablet TAKE 1 TABLET BY MOUTH ONCE DAILY IN THE MORNING - QUEtiapine (SEROQUEL) 100 mg tablet Take 1 tablet by mouth every 12 hours 6am/6pm. - topiramate (TOPAMAX) 50 mg tablet Take 1 tablet by mouth once daily. - levothyroxine (SYNTHROID) 100 mcg tablet Take 1 tablet by mouth once daily. Problem List As Of Date 03/12/2025 Noted Resolved Unspecified sleep apnea [G47.30] 01/20/2013 10/18/2013 PTSD (post-traumatic stress disorder) [F43.10] 06/04/2013 Nightmares associated with chronic post-traumat*06/04/2013 SURESH (obstructive sleep apnea) [G47.33] 10/18/2013 Enlarged tonsils [J35.1] 10/18/2013 Auditory hallucinations [R44.0] 02/03/2015 Outbursts of anger [R45.4] 02/03/2015 Other cholelithiasis without obstruction [K80.8*08/19/2015 Morbid obesity (HCC) [E66.01] 09/13/2015 LFTs abnormal [R79.89] 09/13/2015 Low back pain [M54.50] 07/21/2016 Bipolar affective disorder, manic, severe, with*03/23/2017 Cannabis abuse with cannabis-induced anxiety di*03/23/2017 Chronic low back pain without sciatica [M54.50,*06/29/2017 Obesity, Class III, BMI >= 40 [E66.813] 12/12/2018 Encounter Status:Closed by YADIRA HER on 03/12/25 [facility] POST VASEC SCREENOrdered By: Joy Dixon on 03-12-2025 Collection time (Sherri) [Date/time] 11:00 [facility] Collection time (Sherri) [Date/time] 12:50 [facility] Color (Sherri) Clear [facility] Comment Post Vasec Presence of sperm be low limit of detection [facility] Interpretation and review of laboratory results Abnormal [facility] Post Vasectomy Screen Pass per AUA guide lines (<=100,000 non-motile sperm/mL ) Pass per AUA guidelines (<=100,000 non-motile sperm/mL ) [facility] Round cells (Sherri) [#/Vol] 0.9 NINF [facility] Sexual abstinence duration [Time] 4 Days [facility] Specimen volume (Sherri) 1.1 mL Low 1.50 - PINF mL [facility] Sperm Concentration, Post Vasectomy 0 NINF [facility] Spermatozoa Motile/100 spermatozoa (Sherri) No motile sperm seen No motile sperm seen [facility] Time to Analysis 110 High [facility] POST VASEC SCREENon 03-12-20 Collection time (Sherri) [Date/time] 11:00 Normal [facility] Comment on above: Order Comment: Speci men Type: SEMINAL FLUID SPECIMENOrdering Facility: [facility] Address: [address] [place] [address] Result Comment: 12:5 0 Performed By: #### S EPOST ####[facility]ENTERANDROLOGYCLIA [id number] [place] [address] Color (Sherri) Clear Normal [facility] Comment on above: Order Comment: Speci men Type: SEMINAL FLUID SPECIMENOrdering Facility: [facility] Address: [address] [place] [address] Performed By: #### S EPOST ####[facility]-ANDROLOGYCLIA [id number] [place] [id number] COMMENT POST VASEC Presence of sperm be low limit of detection Normal [facility] Comment on above: Order Comment: Speci men Type: SEMINAL FLUID SPECIMENOrdering Facility: [facility] Address: [address] [place] [address] Performed By: #### S EPOST ####[facility]-ANDROLOGYCLIA [id number] [place] [id number] POST VASECTOMY SCREEN Pass per AUA guide lines (<=100,000 non-motile sperm/mL ) Normal Pass per AUA guidelines (<=100,000 non-motile sperm/mL ) [facility] Comment on above: Order Comment: Speci men Type: SEMINAL FLUID SPECIMENOrdering Facility: [facility] Address: [address] [place] [address] Performed By: #### S EPOST ####[facility]-ANDROLOGYCLIA [id number] [place] [id number] Round cells (Sherri) [#/Vol] 0.90 M/mL Normal <1.00 [facility] Comment on above: Order Comment: Speci men Type: SEMINAL FLUID SPECIMENOrdering Facility: [facility] Address: [address] [place] [address] Performed By: #### S EPOST ####[facility]ENTERANDROLOGYCLIA [id number] [place] [id number] Sexual abstinence duration [Time] 4.0 Days Normal [facility] Comment on above: Order Comment: Speci men Type: SEMINAL FLUID SPECIMENOrdering Facility: [facility] Address: [address] [place] [address] Performed By: #### S EPOST ####[facility]ENTERANDROLOGYCLIA [id number] [place] [id number] Specimen volume (Sherri) 1.10 mL Low >=1.50 [facility] Comment on above: Order Comment: Speci men Type: SEMINAL FLUID SPECIMENOrdering Facility: [facility] Address: [address] [place] [address] Performed By: #### S EPOST ####[facility]-ANDROLOGYCLIA [id number] [place] [id number] SPERM CONCENTRATION, POST VASECTOMY 0 non-motile sperm/mL Normal <=341018 [facility] Comment on above: Order Comment: Speci men Type: SEMINAL FLUID SPECIMENOrdering Facility: [facility] Address: [address] [place] [address] Performed By: #### S EPOST ####[facility]ENTERANDROLOGYCLIA [id number] [facility] [address] Spermatozoa Motile/100 spermatozoa (Sherri) No motile sperm seen Normal No motile sperm seen [facility] Comment on above: Order Comment: Speci men Type: SEMINAL FLUID SPECIMENOrdering Facility: [facility] Address: [address] [place] [address] Performed By: #### S EPOST ####[facility]-ANDROLOGYCLIA [id number] [place] [address] TIME TO ANALYSIS 110 Minutes High 0-60 [facility] Comment on above: Order Comment: Speci men Type: SEMINAL FLUID SPECIMENOrdering Facility: [facility] Address: [address] [place] [address] Performed By: #### S EPOST ####[facility]-ANDROLOGYCLIA [id number] [place] [address] Anion gap in Serum or Plasma Ordered By: [facility] Juliette Zamorano on 02-17-2025 Anion gap [Moles/Vol] 11 mmol/L - [facility] Automated blood erythrocyte countOrdered By: [facility] Juliette Zamorano on 02-17-2025 RBC (Bld) [#/Vol] 5.15 10*6/uL Normal 4.6-6.2 [facility] Comment on above: Performed By: #### L 501.9520, L503.0106, L100.0500, L500.4050, L506.0400, L501.9985, L506.1001 ####[facility] [address] [facility], [address] Automated blood hematocrit ( percentage)Ordered By: [facility] Juliette Zamorano on 02-17-2025 Hematocrit (Bld) [Volume fraction] 46.0 % Normal 40-54 [facility] Comment on above: Performed By: #### L 501.9520, L503.0106, L100.0500, L500.4050, L506.0400, L501.9985, L506.1001 ####[facility] [address] [place], [place], [id number] BUN/creatinine ratioOrdered By: [facility] Juliette Jaun on 02-17-2025 Urea nitrogen/Creatinine [Mass ratio] 10.4 mg/mg 10-20 [facility] Bilirubin, totalOrdered By: [facility] Jaun on 02-17-2025 Bilirubin [Mass/Vol] 0.34 mg/dL Normal 0.00-1.30 [facility] Comment on above: Performed By: #### L 501.9520, L503.0106, L100.0500, L500.4050, L506.0400, L501.9985, L506.1001 ####[facility] [address] [place], [place], [phone] CBC-Complete Blood Cnt No Di ffon 02-17-2025 RDW SD 41.5 fl Normal 35.1-43.9 [facility] Comment on above: Performed By: #### L 501.9520, L503.0106, L100.0500, L500.4050, L506.0400, L501.9985, L506.1001 ####[facility] [address] [place], [place], [id number] Carbon dioxide, total [Moles /volume] in Central venous bloodOrdered By: [facility] on 02-17-2025 CO2 [Moles/Vol] 21.6 mmol/L Normal 21.0-32.0 [facility] Comment on above: Performed By: #### L 501.9520, L503.0106, L100.0500, L500.4050, L506.0400, L501.9985, L506.1001 ####[facility] [address] [place], [place], [id number] Chloride assayOrdered By: [facility] Juliette Jaun on 02-17-2025 Chloride [Moles/Vol] 107 mmol/L Normal 98-108 [facility] Comment on above: Performed By: #### L 501.9520, L503.0106, L100.0500, L500.4050, L506.0400, L501.9985, L506.1001 ####[facility] [address] [place], [address] Comprehensive Metabolic Prof ilon 02-17-2025 ALK PHOS 66 U/L Normal 40-129 [facility] Comment on above: Performed By: #### L 501.9520, L503.0106, L100.0500, L500.4050, L506.0400, L501.9985, L506.1001 ####[facility] [address] [place], [address] BUN/CRE 10.4 RATIO Normal 10-20 [facility] Comment on above: Performed By: #### L 501.9520, L503.0106, L100.0500, L500.4050, L506.0400, L501.9985, L506.1001 ####[facility] [address] [place], [address] GAP 11 Normal 5-15 [facility] Comment on above: Performed By: #### L 501.9520, L503.0106, L100.0500, L500.4050, L506.0400, L501.9985, L506.1001 ####[facility] [address] [place], [address] T PROT 6.8 g/dL Normal 5.9-8.4 [facility] Comment on above: Performed By: #### L 501.9520, L503.0106, L100.0500, L500.4050, L506.0400, L501.9985, L506.1001 ####[facility] [address] [place], [address] Comprehensive Metabolic Prof ilOrdered By: [facility] Juliette Zamorano on 02-17-2025 AST [Catalytic activity/Vol] 33 U/L Normal <=37 [facility] Comment on above: Performed By: #### L 501.9520, L503.0106, L100.0500, L500.4050, L506.0400, L501.9985, L506.1001 ####[facility] [address] [place], [address] Erythrocyte distribution wid th (RBC) [Ratio]Ordered By: [facility] Juliette Zamorano on 02-17-2025 Erythrocyte distribution width (RBC) [Entitic vol] 41.5 fL 35.1-43.9 [facility] Erythrocyte distribution wid th ratioOrdered By: [facility] Juliette Zamorano on 02-17-2025 Erythrocyte distribution width (RBC) [Ratio] 12.7 % Normal 11.6-14.6 [facility] Comment on above: Performed By: #### L 501.9520, L503.0106, L100.0500, L500.4050, L506.0400, L501.9985, L506.1001 ####[facility] [address] [place], [place], [address] Erythrocyte distribution wid th standard deviationOrdered By: [facility] Juliette Zamorano on 02-17-2025 Erythrocyte distribution width (RBC) [Ratio] 41.5 fl 35.1-43.9 [facility] GFR/1.73 sq M.predicted kyler g non-blacks MDRD (S/P/Bld) [Vol rate/Area]Ordered By: [facility] Juliette Zamorano on 02-17-2025 Estimated GFR (MDRD) Non-Af Amer 96 >60 [facility] Comment on above: mL/min/1.73m2 CKD-EP I Creatinine Equation (2020) Glomerular filtration rate ( GFR) estimation/1.73 sq m using serum, plasma, or whole bOrdered By: [facility] Juliette Zamorano on 02-17-2025 GFR/1.73 sq M.predicted among non-blacks MDRD (S/P/Bld) [Vol rate/Area] 96 mL/min/{1.73_m2} Normal >60 [facility] Comment on above: mL/min/1.73m2 CKD-EP I Creatinine Equation (2020) Result Comment: mL/m in/1.73m2 CKD-EPI Creatinine Equation (2020) Performed By: #### L 501.9520, L503.0106, L100.0500, L500.4050, L506.0400, L501.9985, L506.1001 ####[facility] [address] [place], [place], [id number] Hemoglobin A1c percentageOrd ered By: [facility] Juliette Zamorano on 02-17-2025 HbA1c (Bld) [Mass fraction] 5.4 % Normal <=5.6 [facility] Comment on above: Normal < 5.7 % Predi abetic 5.7 - 6.4 % Diabetic >or= 6.5 % Please note range changes. Result Comment: Norm al < 5.7 % Prediabetic 5.7 - 6.4 % Diabetic >or= 6.5 % Please note range changes. Performed By: #### L 501.9520, L503.0106, L100.0500, L500.4050, L506.0400, L501.9985, L506.1001 ####[facility] [address] [place], [address] Hemoglobin measurementOrdere d By: [facility] Juliette Zamorano on 02-17-2025 Hemoglobin (Bld) [Mass/Vol] 15.6 g/dL Normal 13.0-16.5 [facility] Comment on above: Performed By: #### L 501.9520, L503.0106, L100.0500, L500.4050, L506.0400, L501.9985, L506.1001 ####[facility] [address] [place], [place], [phone] MCV (mean corpuscular volume ) determinationOrdered By: [facility] Juliette Zamorano on 02-17-2025 MCV (RBC) [Entitic vol] 89.3 fL Normal 80-94 [facility] Comment on above: Performed By: #### L 501.9520, L503.0106, L100.0500, L500.4050, L506.0400, L501.9985, L506.1001 ####[facility] [address] [place], [place], [phone] Mean corpuscular hemoglobin (MCH) determinationOrdered By: [facility] Juliette Zamorano on 02-17-2025 MCH (RBC) [Entitic mass] 30.3 pg Normal 27.0-32.0 [facility] Comment on above: Performed By: #### L 501.9520, L503.0106, L100.0500, L500.4050, L506.0400, L501.9985, L506.1001 ####[facility] [address] [place], [place], [id number] Mean corpuscular hemoglobin concentration (MCHC) determinationOrdered By: [facility] Juliette Zamorano on 02-17-2025 MCHC (RBC) [Mass/Vol] 33.9 g/dL Normal 32-36 [facility] Comment on above: Performed By: #### L 501.9520, L503.0106, L100.0500, L500.4050, L506.0400, L501.9985, L506.1001 ####[facility] [address] [place], [address] Mean platelet volume determi nationOrdered By: [facility] Juliette Zamorano on 02-17-2025 Platelet mean volume (Bld) [Entitic vol] 9.9 fL Normal 6.2-12.0 [facility] Comment on above: Performed By: #### L 501.9520, L503.0106, L100.0500, L500.4050, L506.0400, L501.9985, L506.1001 ####[facility] [address] [place], [address] Platelet countOrdered By: [facility] Juliette Zamorano on 02-17-2025 Platelets (Bld) [#/Vol] 196 10*3/uL Normal 150-450 [facility] Comment on above: Performed By: #### L 501.9520, L503.0106, L100.0500, L500.4050, L506.0400, L501.9985, L506.1001 ####[facility] [address] [place], [address] Potassium measurement (mass/ volume)Ordered By: [facility] Juliette Zamorano on 02-17-2025 Potassium [Moles/Vol] 3.6 mmol/L Normal 3.3-5.1 [facility] Comment on above: Performed By: #### L 501.9520, L503.0106, L100.0500, L500.4050, L506.0400, L501.9985, L506.1001 ####[facility] [address] [place], [place], [phone]) Potassium (Unsp spec) [Mass/Vol] 3.6 mmol/L 3.3-5.1 [facility] Serum creatinine measurement (mass/volume)Ordered By: [facility] Juliette Zamorano on 02-17-2025 Creatinine [Mass/Vol] 1.05 mg/dL Normal 0.70-1.20 [facility] Comment on above: Performed By: #### L 501.9520, L503.0106, L100.0500, L500.4050, L506.0400, L501.9985, L506.1001 ####[facility] [address] [place], [address] Serum globulin measurementOr dered By: [facility] Juliette Zamorano on 02-17-2025 Globulin (S) [Mass/Vol] 2.8 g/dL Normal 2.2-4.2 [facility] Comment on above: Performed By: #### L 501.9520, L503.0106, L100.0500, L500.4050, L506.0400, L501.9985, L506.1001 ####[facility] [address] [place], [address] Serum glucose measurement (m ass/volume)Ordered By: [facility] Juliette Zamorano on 02-17-2025 Glucose [Mass/Vol] 128 mg/dL High 70-99 [facility] Comment on above: Performed By: #### L [id number], L503.0106, L100.0500, L500.4050, L506.0400, L501.9985, L506.1001 ####[facility] [id number] [facility] [place], [address] Serum or plasma alanine whitman otransferase (ALT) measurementOrdered By: [facility] Juliette Zamorano on 02-17-2025 ALT [Catalytic activity/Vol] 54 U/L High <=46 [facility] Comment on above: Performed By: #### L [id number], L503.0106, L100.0500, L500.4050, L506.0400, L501.9985, L506.1001 ####[facility] [id number] [facility] [place], [address] Serum or plasma albumin delphine urement (mass/volume)Ordered By: [facility] Juliette Zamorano on 02-17-2025 Albumin [Mass/Vol] 4.0 g/dL Normal 3.5-5.0 [facility] Comment on above: Performed By: #### L 501.9520, L503.0106, L100.0500, L500.4050, L506.0400, L501.9985, L506.1001 ####[facility] [address] [facility] [place], [address] Serum or plasma albumin/glob ulin mass ratioOrdered By: [facility] Juliette Zamorano on 02-17-2025 Albumin/Globulin [Mass ratio] 1.4 {ratio} Normal 0.9-2.4 [facility] Comment on above: Performed By: #### L 501.9520, L503.0106, L100.0500, L500.4050, L506.0400, L501.9985, L506.1001 ####[facility] [address] [place], [place], [phone] Serum or plasma alkaline ely sphatase measurementOrdered By: [facility] on 02-17-2025 ALP [Catalytic activity/Vol] 66 U/L 40-129 [facility] Serum or plasma calcium delphine urement (mass/volume)Ordered By: [facility] on 02-17-2025 Calcium [Mass/Vol] 9.1 mg/dL Normal 7.6-11.0 [facility] Comment on above: Performed By: #### L 501.9520, L503.0106, L100.0500, L500.4050, L506.0400, L501.9985, L506.1001 ####[facility] [address] [place], [place], [phone] Serum or plasma urea nitroge n measurement (mass/volume)Ordered By: [facility] on 02-17-2025 Urea nitrogen [Mass/Vol] 11 mg/dL Normal 4-19 [facility] Comment on above: Performed By: #### L 501.9520, L503.0106, L100.0500, L500.4050, L506.0400, L501.9985, L506.1001 ####[facility] [address] [place], [place], [phone] Sodium levelOrdered By: [facility] on 02-17-2025 Sodium [Moles/Vol] 140 mmol/L Normal 133-145 [facility] Comment on above: Performed By: #### L 501.9520, L503.0106, L100.0500, L500.4050, L506.0400, L501.9985, L506.1001 ####[facility] [address] [place], [place], [phone] T4 Free Directon 02-17-2025 T4 FREE DIRECT 1.00 ng/dL Normal 0.76-1.46 [facility] Comment on above: Performed By: #### L 501.9520, L503.0106, L100.0500, L500.4050, L506.0400, L501.9985, L506.1001 ####[facility] [address] [place], [address] T4 freeOrdered By: [facility] Mónica Zamorano on 02-17-2025 Free T4 [Mass/Vol] 1.00 ng/dL 0.76-1.46 [facility] TSH DL <= 0.005 mIU/L QnOrde red By: [facility] Juliette Zamorano on 02-17-2025 Thyroid Stimulating Hormone (TSH) 1.330 uIU/mL 0.300-4.200 [facility] TSH Qn 1.330 uIU/mL 0.300-4.200 [facility] Thyroid Stim Hormone (TSH)on 02-17-2025 TSH 1.330 uIU/mL Normal 0.300-4.200 [facility] Comment on above: Performed By: #### L 501.9520, L503.0106, L100.0500, L500.4050, L506.0400, L501.9985, L506.1001 ####[facility] [address] [place], [address] Total proteinOrdered By: [facility] Juliette Zamorano on 02-17-2025 Protein [Mass/Vol] 6.8 g/dL 5.9-8.4 [facility] Vitamin B12 ser/plasOrdered By: [facility] 02-17-2025 Cobalamin (Vitamin B12) [Mass/Vol] 532 pg/mL Normal 180-914 [facility] Comment on above: Performed By: #### L 501.9520, L503.0106, L100.0500, L500.4050, L506.0400, L501.9985, L506.1001 ####[facility] [address] [place], [address] Vitamin D, 25-hydroxyOrdered By: [facility] Juliette Jaun on 02-17-2025 Vitamin D 25-Hydroxy 28.0 ng/mL Low 30-100 [facility] Comment on above: Vitamin D StatusDefi ciency: <20 ng/mL (50nmol/L)Insufficiency: 20-30 ng/mL (50-75 nmol/L)Sufficiency: 30-100 ng/mL (75-250 nmol/L)Toxicity: >100 ng/mL (>250 nmol/L) Vitamin D,25 Hydroxyon 02-17 Vitamin D 25-OH 28.0 ng/mL Low 30-100 [facility] Comment on above: Result Comment: Sabrina min D Status Deficiency: <20 ng/mL (50nmol/L) Insufficiency: 20-30 ng/mL (50-75 nmol/L) Sufficiency: 30-100 ng/mL (75-250 nmol/L) Toxicity: >100 ng/mL (>250 nmol/L) Performed By: #### L 501.9520, L503.0106, L100.0500, L500.4050, L506.0400, L501.9985, L506.1001 ####[facility] [address] [place], [place], [phone] White blood cell (WBC) count Ordered By: [facility] Juliette Zamorano on 02-17-2025 WBC (Bld) [#/Vol] 8.6 10*3/uL Normal 4.4-11.0 [facility] Comment on above: Performed By: #### L 501.9520, L503.0106, L100.0500, L500.4050, L506.0400, L501.9985, L506.1001 ####[facility] [address] [place], [place], [phone] CNOVon 11-28-2024 CNOV Office Visit (UROLMD ) ----- MARIKA LOZOYA ([id number]) 1990 M Date Time Provider Department 11/28/24 10:30 AM CHIQUITA JUAREZ During your visit today, we recorded the following information about you: Pulse Respiration Blood pressure Weight 85/minute 14/minute 116/77 147.9 kg Height 1.753 m Chiquita Juarez MD 11/28/2024 10:56 AM Signed Marika Lozoya [id number] 11/28/2024 UNIVERSAL PROTOCOL / SAFETY CHECKLIST Procedure to be Performed: vasectomy Sign In: A Moment of CARE was completed. Personnel directly involved with the procedure wore the appropriate PPE (Personal Protective Equipment). Patient/Surrogate Stated/Verified: PATIENT VERIFIED(optional for EMERGENT procedures): Patient name, Date of , Relevant allergies, and The intended procedure Time Out Communication: Intended patient and procedure match the source documents. Consent documented and matches the intended procedure. Sign Out: SIGN OUT (optional for EMERGENT procedures): All specimen containers correctly labeled. Chiquita Juarez MD HPI: 34 year old male reports for vasectomy. He again confirms he desires permanent sterilization and has no desire to father children in the future. Operation: Vasectomy Anatomic Site: Vas Deferens Approach: Percutaneous Device: None Qualifier: None PMHx/PSHx: see above, otherwise unchanged Rx: No scheduled NSAIDs or blood thinner for past 5 days. ROS: No new or inguinal complaints Labs: None Imaging: None PE: General: Well masculinized, well nourished male Psych: euthymic, NAD Neuro: AANDOx3 exam: see below. Procedure: Vasectomy Patient?s identity was confirmed, written informed consent was obtained, and the time out performed before the procedure was initiated The patient was placed in a supine position and the genitalia were prepped and draped in a sterile manner. Examination revealed no scrotal lesions, descended testicles bilaterally without masses and readily palpable vasa deferens. The right scrotal skin and cord structures was anesthetized with 5 cc of 2% lidocaine without epinephrine. A No-scapel technique was used to isolated and remove a small portion of the vas deferens. The vasal ends were secured with clips and hemostasis was ensured. The skin edges were closed with an absorbable suture. The procedure was repeated on the patient?s left side. The patient tolerated the procedure well. Postoperative care, limitations, and expectations were reviewed with the patient. He was again instructed to use an alternate form of control until he is notified that his postprocedure semen analysis reveals no sperm. Imp: S/p vasectomy P: 1) Semen Analysis in 3 months 2) post-procedure instructions given to pt with verbalization of understanding. MD Tab Stewart Gerald A, MA 11/28/2024 11:13 AM Signed HOME GOING/DISCHARGE INSTRUCTIONS FOR VASECTOMY PATIENTS Please call the following numbers with any questions or concerns: [facility]: #[phone], and also #[phone] [facility] patients: [phone] M-F 8am-5pm, after hours [phone] ACTIVITIES Avoid strenuous physical exercise and heavy lifting for 10 days (as in bearing down, squatting or heavy weight lifting) NO bouncing, bumping or jarring NO contact sports, no exercising, no golf, no vacations/trips NO swimming, bathing or engaging in sexual activity NO going out to dinner or shopping Avoid lifting children or pets for 7-[address] them on your lap Rest with your legs elevated in a reclining chair Avoid sexual stimulation for ten days. After this time, you may return to sexual activity. A METHOD OF CONTROL should be used until your semen analysis showed negative results for sperm x 2. It is normal to notice blood or a brown color in the semen during the first few weeks after the procedure. You may go back to work in 2-3 days PRECAUTIONS Follow the usual precautions against until the results of the semen analysis are known. If sperm are detected, it may be necessary to continue precautions until another sample is submitted at a later date. You will need to come back for Follow up appointment in the time advised by your Provider with a semen specimen in the cup provided. Make sure to continue precautions until negative specimens by provider. DIET Resume your previous diet MEDICATIONS Use Acetaminophen for mild pain or discomfort Avoid Aspirin or Aspirin-containing products for 5 days WOUND CARE Apply ice packs to the scrotal area over the underwear every 8 hours for the first 1-2 days for not more than 30 minutes at a time. Use a jock strap (scrotal support) for 10 days. A small amount of oozing of blood, tenderness, and mild swelling are expected and should subside in a few days. If a (more content not included)... Normal [facility] SURGICAL PATHOLOGYon 025 CASE REPORT Normal [facility] Comment on above: Order Comment: Speci men Type: TISSUE SPECIMENOrdering Facility: [facility] Address: [address] [place] [address] Result Comment: Surg ica Pathology Report Case: [id number] Authorizing Provider: Chiquita Juarez MD Collected: 11/28/2024 11:11 AM Ordering Location: Urology Received: 11/28/2024 03:10 PM Pathologist: Isidoro Barksdale MD Specimens: A) - Vas Deferens, Left, 1 B) - Vas Deferens, Right, 1 Performed By: #### S ####[facility] [id number] [place] [address] [place] CLINICAL HISTORY ENCOUNTER FOR VASECTOMY Normal [facility] Comment on above: Order Comment: Speci men Type: TISSUE SPECIMENOrdering Facility: [facility] Address: [address] [place] [address] Performed By: #### S ####[facility] [id number] [address] [place] FINAL DIAGNOSIS Normal [facility] Comment on above: Order Comment: Speci men Type: TISSUE SPECIMENOrdering Facility: [facility] Address: [address] [place] [address] Result Comment: A. L eft vas deferens, vasectomy: - Unremarkable vas deferens, complete cross-section identified. B. Right vas deferens, vasectomy: - Unremarkable vas deferens, complete cross-section identified. Performed By: #### S ####[facility] [id number] [place] [address] [place] FINAL PERFORMING LAB Normal [facility] Comment on above: Order Comment: Speci men Type: TISSUE SPECIMENOrdering Facility: [facility] Address: [address] [place] [address] Result Comment: Diag nostic interpretation performed at: [facility], [address] [place] [address] CLIA# [id number] Gut Sorter: Tim Yap MD Performed By: #### S ####[facility] [id number] [place] [address] [place] GROSS DESCRIPTION Normal [facility] Comment on above: Order Comment: Speci men Type: TISSUE SPECIMENOrdering Facility: [facility] Address: [address] [place] [address] Result Comment: A. V as Deferens, Left Received in formalin labeled left vas deferens left is a cylindrical segment of daniels-white soft tissue measuring 1.4 x 0.3 x 0.3 cm. A pinpoint lumen is present. Totally submitted in formalin in cassette A1. B. Vas Deferens, Right Received in formalin labeled vas deferens right is a cylindrical segment of daniels-white soft tissue measuring 1.0 x 0.2 x 0.3 cm. A pinpoint lumen is present. Totally submitted in formalin in cassette B1. Gross examination performed at [address] 12/01/24 10:21 AM Performed By: #### S ####[facility] LAB[facility] [id number] [place] [address] [place] PT D/C Summary (1)on 025 PT D/C Summary (1) [facility] [address] [place] [address] [address] [place] [address] / REHABILITATION SERVICES DISCHARGE SUMMARY MR#: [id number] Acct: [id number] Name: MARIKA LOZOYA Rep #: [id number] : 1990 34 From: Unruly Warner PT, Cert. MD [place], OCS Referring Dr.: DANIELLE Marrero Status: REG RCR Insurance: [facility] SELF PAY INSURANCE Discharge Summary D/C summary: It has been my pleasure to treat MARIKA LOZOYA referred by DANIELLE Marrero, with the diagnosis of RADICULOPATHY ,LUMBAR REGION for a total of 9 visit(s). Discharge Date: Please see the following information for a summary of their discharge status. Subjective Subjective: PT has helped alot No pain Pain Bilateral Back: Pain Intensity (Out of 10): 0 Left Lower Extremity: Pain Intensity (Out of 10): 0 Overall Improvement % Improvement: 90 Objective Objective/Function: POSTURE: WFL GAIT: reciprocal pattern NEURO: denies paresthesia/tingling,refl exes L3-4 ,L4-5,L5-S1 1/3 PALAPTION: unremarkable FLEXABILITY:hamstrings min loss LUMBAR ROM: flexion WNL ,extension min loss ,side glides WFL MMT: quads/hams 4/5 .hip flexion 4/5 ,ankle 4/5 Goals Goal 1:: Patient to be I with LUMBAR spine Goal Progress: Goal Met Goal 2:: Patient to improve lumbar ROM for function of recovery to lifting Goal Progress: Goal Met Goal 3:: Patient to improve back oswestry score by 5 points to improve function Goal Progress: Goal Met Goal 4:: Patient demonstrate 70% improvement with less pain and improved function Goal Progress: Goal Met Plan Plan: D/C D/C Information d/c sentence: If there are questions or concerns regarding this patient's physical therapy, please feel free to call me at [phone]. Thank you for the referral of this patient. Sincerely, Unruly Warner PT, Cert MDT, OCS Balance/Gait/Functional tests Balance/Special Test Scores Oswestry Low Back Score: 0 Improvement % Improvement: 90 11/26/24 0844 CC: DANIELLE Marrero; [facility] Signed Normal [facility] 60-LX-Nkkwwkw DOrdered By: La Zamorano on 11-18-2024 Vitamin D 25-Hydroxy 12.0 ng/mL [facility] Comment on above: Vitamin D 25(OH) Sta tus Range Deficiency <20 ng/mL (50nmol/L) Insufficiency 20 - 30 ng/mL (50 - 75 nmol/L) Sufficiency 30 - 100 ng/mL (75 - 250 nmol/L) Toxicity >100 ng/mL (>250 nmol/L) Albumin to globulin ratioOrd ered By: [facility] Juliette Zamorano on 11-18-2024 Albumin/Globulin [Mass ratio] 1.0 {ratio} 0.9-2.4 [facility] Bilirubin, totalOrdered By: [facility] Juliette Zamorano on 11-18-2024 Bilirubin [Mass/Vol] 0.40 mg/dL 0.20-1.00 [facility] Comment on above: For patients on eltr ombopag therapy, use of Dimension [place] TBIL is not recommended. Blood urea nitrogen (BUN)/cr eatinine ratioOrdered By: [facility] Juliette Zamorano on 11-18-2024 Urea nitrogen/Creatinine [Mass ratio] 12.1 mg/mg 10-20 [facility] CBC-Complete Blood Cnt No Di ffon 11-18-2024 Erythrocyte distribution width (RBC) [Ratio] 12.9 % Normal 11.6-14.6 [facility] Comment on above: Performed By: #### L 100.0500, L506.1000, L500.4050, L501.9520, L501.9985, L500.4100, L506.0400 #### [facility] [address] [place], [address] Hematocrit (Bld) [Volume fraction] 47.9 % Normal 40-54 [facility] Comment on above: Performed By: #### L 100.0500, L506.1000, L500.4050, L501.9520, L501.9985, L500.4100, L506.0400 #### [facility] [address] [place], [address] Hemoglobin (Bld) [Mass/Vol] 16.0 g/dL Normal 13.0-16.5 [facility] Comment on above: Performed By: #### L 100.0500, L506.1000, L500.4050, L501.9520, L501.9985, L500.4100, L506.0400 #### [facility] [address] [place], [address] MCH (RBC) [Entitic mass] 30.1 pg Normal 27.0-32.0 [facility] Comment on above: Performed By: #### L 100.0500, L506.1000, L500.4050, L501.9520, L501.9985, L500.4100, L506.0400 #### [facility] [address] [place], [address] MCHC (RBC) [Mass/Vol] 33.4 g/dL Normal 32-36 [facility] Comment on above: Performed By: #### L 100.0500, L506.1000, L500.4050, L501.9520, L501.9985, L500.4100, L506.0400 #### [facility] [address] [place], [address] MCV (RBC) [Entitic vol] 90.2 fL Normal 80-94 [facility] Comment on above: Performed By: #### L 100.0500, L506.1000, L500.4050, L501.9520, L501.9985, L500.4100, L506.0400 #### [facility] [address] [place], [address] Platelet mean volume (Bld) [Entitic vol] 10.4 fL Normal 6.2-12.0 [facility] Comment on above: Performed By: #### L 100.0500, L506.1000, L500.4050, L501.9520, L501.9985, L500.4100, L506.0400 #### [facility] [address] [place], [address] Platelets (Bld) [#/Vol] 194 10*3/uL Normal 150-450 [facility] Comment on above: Performed By: #### L 100.0500, L506.1000, L500.4050, L501.9520, L501.9985, L500.4100, L506.0400 #### [facility] [address] [place], [address] RBC (Bld) [#/Vol] 5.31 10*6/uL Normal 4.6-6.2 [facility] Comment on above: Performed By: #### L 100.0500, L506.1000, L500.4050, L501.9520, L501.9985, L500.4100, L506.0400 #### [facility] [address] [place], [address] RDW SD 41.6 fl Normal 35.1-43.9 [facility] Comment on above: Performed By: #### L 100.0500, L506.1000, L500.4050, L501.9520, L501.9985, L500.4100, L506.0400 #### [facility] [address] [place], [address] WBC (Bld) [#/Vol] 8.7 10*3/uL Normal 4.4-11.0 [facility] Comment on above: Performed By: #### L 100.0500, L506.1000, L500.4050, L501.9520, L501.9985, L500.4100, L506.0400 #### [facility] [address] [place], [address] Carbon dioxide measurementOr dered By: [facility] Juliette Zamorano on 11-18-2024 CO2 [Moles/Vol] 23.0 mmol/L 21.0-32.0 [facility] Chloride measurementOrdered By: [facility] Juliettemargaret Zamorano on 11-18-2024 Chloride [Moles/Vol] 110 mmol/L High 98-107 [facility] Comprehensive Metabolic Prof ilon 11-18-2024 Albumin [Mass/Vol] 3.7 g/dL Normal 3.2-5.0 [facility] Comment on above: Performed By: #### L 100.0500, L506.1000, L500.4050, L501.9520, L501.9985, L500.4100, L506.0400 #### [facility] [address] [place], [address] Albumin/Globulin [Mass ratio] 1.0 {ratio} Normal 0.9-2.4 [facility] Comment on above: Performed By: #### L 100.0500, L506.1000, L500.4050, L501.9520, L501.9985, L500.4100, L506.0400 #### [facility] [address] [place], [address] ALK P 73 U/L Normal 45-117 [facility] Comment on above: Performed By: #### L 100.0500, L506.1000, L500.4050, L501.9520, L501.9985, L500.4100, L506.0400 #### [facility] [address] [place], [address] ALT [Catalytic activity/Vol] 57 U/L Normal 16-61 [facility] Comment on above: Performed By: #### L 100.0500, L506.1000, L500.4050, L501.9520, L501.9985, L500.4100, L506.0400 #### [facility] [address] [place], [address] AST [Catalytic activity/Vol] 27 U/L Normal 15-37 [facility] Comment on above: Performed By: #### L 100.0500, L506.1000, L500.4050, L501.9520, L501.9985, L500.4100, L506.0400 #### [facility] [address] [place], [address] Bilirubin [Mass/Vol] 0.40 mg/dL Normal 0.20-1.00 [facility] Comment on above: Result Comment: For patients on eltrombopag therapy, use of Dimension [place] TBIL is not recommended. Performed By: #### L 100.0500, L506.1000, L500.4050, L501.9520, L501.9985, L500.4100, L506.0400 #### [facility] [address] [place], [address] BUN/CRE 12.1 RATIO Normal 10-20 [facility] Comment on above: Performed By: #### L 100.0500, L506.1000, L500.4050, L501.9520, L501.9985, L500.4100, L506.0400 #### [facility] [address] [place], [address] CA,Total 8.9 mg/dL Normal 8.5-10.1 [facility] Comment on above: Performed By: #### L 100.0500, L506.1000, L500.4050, L501.9520, L501.9985, L500.4100, L506.0400 #### [facility] [address] [place], [address] Chloride [Moles/Vol] 110 mmol/L High 98-107 [facility] Comment on above: Performed By: #### L 100.0500, L506.1000, L500.4050, L501.9520, L501.9985, L500.4100, L506.0400 #### [facility] [address] [place], [address] CO2 [Moles/Vol] 23.0 mmol/L Normal 21.0-32.0 [facility] Comment on above: Performed By: #### L 100.0500, L506.1000, L500.4050, L501.9520, L501.9985, L500.4100, L506.0400 #### [facility] [address] [place], [address] (816) Creatinine [Mass/Vol] 1.07 mg/dL Normal 0.70-1.30 [facility] Comment on above: Result Comment: The validity of the calculated GFR GFRAA in patients over 70 years has not been determined. Clinical correlation is essential. Performed By: #### L 100.0500, L506.1000, L500.4050, L501.9520, L501.9985, L500.4100, L506.0400 #### [facility] [address] [place], [address] (246) EST GFR - AA 102 mL/min Normal >60 [facility] Comment on above: Result Comment: Afri can Chinese GFR Calc Performed By: #### L 100.0500, L506.1000, L500.4050, L501.9520, L501.9985, L500.4100, L506.0400 #### [facility] [address] [place], [address] (314) GAP 5 Normal 5-15 [facility] Comment on above: Performed By: #### L 100.0500, L506.1000, L500.4050, L501.9520, L501.9985, L500.4100, L506.0400 #### [facility] [address] [place], [address] (163 GFR/1.73 sq M.predicted among non-blacks MDRD (S/P/Bld) [Vol rate/Area] 84 mL/min/{1.73_m2} Normal >60 [facility] Comment on above: Result Comment: Non- GFR Calc Performed By: #### L 100.0500, L506.1000, L500.4050, L501.9520, L501.9985, L500.4100, L506.0400 #### [facility] [address] [place], [address] Globulin (S) [Mass/Vol] 3.7 g/dL Normal 2.2-4.2 [facility] Comment on above: Performed By: #### L 100.0500, L506.1000, L500.4050, L501.9520, L501.9985, L500.4100, L506.0400 #### [facility] [address] [place], [address] Glucose [Mass/Vol] 125 mg/dL High 74-106 [facility] Comment on above: Result Comment: Fast ing Glucose result from 100 to 125 mg/dL suggests IMPAIRED HOMEOSTASIS per A.D.A. criteria. Performed By: #### L 100.0500, L506.1000, L500.4050, L501.9520, L501.9985, L500.4100, L506.0400 #### [facility] [address] [place], [address] Potassium [Moles/Vol] 3.4 mmol/L Low 3.5-5.1 [facility] Comment on above: Performed By: #### L 100.0500, L506.1000, L500.4050, L501.9520, L501.9985, L500.4100, L506.0400 #### [facility] [address] [place], [address] Sodium [Moles/Vol] 138 mmol/L Normal 136-145 [facility] Comment on above: Performed By: #### L 100.0500, L506.1000, L500.4050, L501.9520, L501.9985, L500.4100, L506.0400 #### [facility] [address] [place], [address] T PROT 7.4 g/dL Normal 6.4-8.2 [facility] Comment on above: Performed By: #### L 100.0500, L506.1000, L500.4050, L501.9520, L501.9985, L500.4100, L506.0400 #### [facility] [address] [place], [address] Urea nitrogen [Mass/Vol] 13 mg/dL Normal 7-18 [facility] Comment on above: Performed By: #### L 100.0500, L506.1000, L500.4050, L501.9520, L501.9985, L500.4100, L506.0400 #### [facility] [address] [place], [address] Direct serum free thyroxine (FT4) measurementOrdered By: [facility] Juliette Zamorano on 11-18-2024 Free T4 [Mass/Vol] 0.97 ng/dL 0.76-1.46 [facility] Erythrocyte distribution wid th (RBC) [Ratio]Ordered By: [facility] Juliette Zamorano on 11-18-2024 Erythrocyte distribution width (RBC) [Entitic vol] 41.6 fL 35.1-43.9 [facility] Erythrocyte distribution wid th ratioOrdered By: [facility] Juliette Zamorano on 11-18-2024 Erythrocyte distribution width (RBC) [Ratio] 12.9 % 11.6-14.6 [facility] Estimated glomerular filtrat ion rate (GFR) AmericanOrdered By: [facility] Juliette Zamorano on 11-18-2024 Estimated GFR (MDRD) Amer 102 mL/min >60 [facility] Comment on above: GFR Calc Glomerular filtration rate ( GFR) estimationOrdered By: [facility] Juliette Zamorano on 11-18-2024 Estimated GFR (MDRD) Non-Af Amer 84 mL/min >60 [facility] Comment on above: Non- GFR Calc Glucose measurementOrdered B y: [facility] Juliette Zamorano on 11-18-2024 Glucose [Mass/Vol] 125 mg/dL High 74-106 [facility] Comment on above: Fasting Glucose resu lt from 100 to 125 mg/dL suggests IMPAIRED HOMEOSTASIS per A.D.A. criteria. Hematocrit Auto (Bld) [Volum e fraction]Ordered By: [facility] Juliette Zamorano on 11-18-2024 Hematocrit (Bld) [Volume fraction] 47.9 % 40-54 [facility] Hemoglobin A1con 11-18-2024 HbA1c (Bld) [Mass fraction] 5.2 % Normal 3.8-5.6 [facility] Comment on above: Result Comment: Norm al < 5.7 % Prediabetic 5.7 - 6.4 % Diabetic >or= 6.5 % Please note range changes. Performed By: #### L 100.0500, L506.1000, L500.4050, L501.9520, L501.9985, L500.4100, L506.0400 ####[facility] [address] [place], [address] Hemoglobin A1c percentageOrd ered By: [facility] Juliettetoni Zamorano on 11-18-2024 HbA1c (Bld) [Mass fraction] 5.2 % 3.8-5.6 [facility] Comment on above: Normal < 5.7 % Predi abetic 5.7 - 6.4 % Diabetic >or= 6.5 % Please note range changes. Hemoglobin measurementOrdere d By: [facility] Juliettetoni Zamorano on 11-18-2024 Hemoglobin (Bld) [Mass/Vol] 16.0 g/dL 13.0-16.5 [facility] High density lipoprotein (HD L) measurementOrdered By: [facility] on 11-18-2024 Cholesterol in HDL [Mass/Vol] 42 mg/dL >40 [facility] Comment on above: The drugs N-Acetylcy steine and Metamizole may falsely depress this assay. Reference Range HDL <40 mg/dL Low HDL Cholesterol HDL >or= 60 mg/dL High HDL Cholesterol Laboratory - Chemistry and C hemistry - challengeOrdered By: [facility] Juliette Zamorano on 01-14-2025 AST [Catalytic activity/Vol] 27 U/L 15-37 [facility] Lipid Profileon 11-18-2024 Cholesterol [Mass/Vol] 166 mg/dL Normal 200 [facility] Comment on above: Result Comment: <200 mg/dL Desirable 200-240 mg/dL Borderline >240 mg/dL High Risk Performed By: #### L 100.0500, L506.1000, L500.4050, L501.9520, L501.9985, L500.4100, L506.0400 #### [facility] [address] [place], [address] Cholesterol in HDL [Mass/Vol] 42 mg/dL Normal [facility] Comment on above: Result Comment: The drugs N-Acetylcysteine and Metamizole may falsely depress this assay. Reference Range HDL <40 mg/dL Low HDL Cholesterol HDL >or= 60 mg/dL High HDL Cholesterol Performed By: #### L 100.0500, L506.1000, L500.4050, L501.9520, L501.9985, L500.4100, L506.0400 #### [facility] [address] [place], [address] Cholesterol in LDL [Mass/Vol] 81 mg/dL Normal 0-130 [facility] Comment on above: Performed By: #### L 100.0500, L506.1000, L500.4050, L501.9520, L501.9985, L500.4100, L506.0400 #### [facility] [address] [place], [address] Cholesterol in VLDL [Mass/Vol] 43 mg/dL High 5-40 [facility] Comment on above: Performed By: #### L 100.0500, L506.1000, L500.4050, L501.9520, L501.9985, L500.4100, L506.0400 #### [facility] [address] [place], [address] Triglyceride [Mass/Vol] 213 mg/dL High [facility] Comment on above: Result Comment: The drugs N-Acetylcysteine and Metamizole may falsely depress this assay. Serum Triglycerides Reference Interval Normal <150 mg/dL Borderline high 150 - 199 mg/dL High 200 - 499 mg/dL Very High > or = 500 mg/dL Performed By: #### L 100.0500, L506.1000, L500.4050, L501.9520, L501.9985, L500.4100, L506.0400 #### [facility] [address] [place], [address] Low density lipoprotein (LDL ) cholesterol measurementOrdered By: [facility] Juliette Zamorano on 11-18-2024 Cholesterol in LDL [Mass/Vol] 81 mg/dL 0-130 [facility] MCV (mean corpuscular volume ) determinationOrdered By: [facility] Juliette Zamorano on 11-18-2024 MCV (RBC) [Entitic vol] 90.2 fL 80-94 [facility] Mean corpuscular hemoglobin (MCH) determinationOrdered By: [facility] Juliette Zamorano on 11-18-2024 MCH (RBC) [Entitic mass] 30.1 pg 27.0-32.0 [facility] Mean corpuscular hemoglobin concentration (MCHC) determinationOrdered By: [facility] Juliette Zamorano on 11-18-2024 MCHC (RBC) [Mass/Vol] 33.4 g/dL 32-36 [facility] Mean platelet volume determi nationOrdered By: [facility] Juliette Zamorano on 11-18-2024 Platelet mean volume (Bld) [Entitic vol] 10.4 fL 6.2-12.0 [facility] Platelet countOrdered By: [facility] Juliette Zamorano on 11-18-2024 Platelets (Bld) [#/Vol] 194 10*3/uL 150-450 [facility] Potassium measurementOrdered By: [facility] Juliette Zamorano on 11-18-2024 Potassium [Moles/Vol] 3.4 mmol/L Low 3.5-5.1 [facility] RBC Auto (Bld) [#/Vol]Ordere d By: [facility] Juliette Zamorano on 11-18-2024 RBC (Bld) [#/Vol] 5.31 10*6/uL 4.6-6.2 [facility] Serum anion gap measurementO rdered By: [facility] Juliettetoni Zamorano on 11-18-2024 Anion gap [Moles/Vol] 5 mmol/L 5-15 [facility] Serum globulin measurementOr dered By: [facility] Juliette Zamorano on 11-18-2024 Globulin (S) [Mass/Vol] 3.7 g/dL 2.2-4.2 [facility] Serum or plasma alanine whitman otransferase (ALT) measurementOrdered By: [facility] Juliette Zamorano on 11-18-2024 ALT [Catalytic activity/Vol] 57 U/L 16-61 [facility] Serum or plasma albumin delphine urement (mass/volume)Ordered By: [facility] Juliette Zamorano on 11-18-2024 Albumin [Mass/Vol] 3.7 g/dL 3.2-5.0 [facility] Serum or plasma alkaline ely sphatase measurementOrdered By: [facility] Juliette Zamorano on 11-18-2024 ALP [Catalytic activity/Vol] 73 U/L 45-117 [facility] Serum or plasma calcium delphine urement (mass/volume)Ordered By: [facility] Juliette Zamorano on 11-18-2024 Calcium [Mass/Vol] 8.9 mg/dL 8.5-10.1 [facility] Serum or plasma cholesterol measurement (mass/volume)Ordered By: [facility] Juliette Zamorano on 11-18-2024 Cholesterol [Mass/Vol] 166 mg/dL <200 [facility] Comment on above: <200 mg/dL Desirable 200-240 mg/dL Borderline >240 mg/dL High Risk Serum or plasma creatinine m easurement (mass/volume)Ordered By: [facility] Juliette Zamorano on 11-18-2024 Creatinine [Mass/Vol] 1.07 mg/dL 0.70-1.30 [facility] Comment on above: The validity of the calculated GFR & GFRAA in patients over 70 years has not been determined. Clinical correlation is essential. Serum or plasma urea nitroge n measurement (mass/volume)Ordered By: [facility] Juliette Zamorano on 11-18-2024 Urea nitrogen [Mass/Vol] 13 mg/dL 7-18 [facility] Sodium levelOrdered By: [facility] Juliette Zamorano on 11-18-2024 Sodium [Moles/Vol] 138 mmol/L 136-145 [facility] T4 Free Directon 11-18-2024 T4 FREE DIRECT 0.97 ng/dL Normal 0.76-1.46 [facility] Comment on above: Performed By: #### L 100.0500, L506.1000, L500.4050, L501.9520, L501.9985, L500.4100, L506.0400 #### [facility] [address] [place], [place], [id number] TSH QnOrdered By: [facility] Cierra Zamorano on 11-18-2024 Thyroid Stimulating Hormone (TSH) 1.670 uIU/mL 0.358-3.740 [facility] Thyroid Stim Hormone (TSH)on 11-18-2024 TSH 1.670 uIU/mL Normal 0.358-3.740 [facility] Comment on above: Performed By: #### L 100.0500, L506.1000, L500.4050, L501.9520, L501.9985, L500.4100, L506.0400 #### [facility] [address] [place], [place], [id number] Total proteinOrdered By: [facility] Juliette Zamorano on 11-18-2024 Protein [Mass/Vol] 7.4 g/dL 6.4-8.2 [facility] Triglycerides measurementOrd ered By: [facility] Juliette Zamorano on 11-18-2024 Triglyceride [Mass/Vol] 213 mg/dL High <199 [facility] Comment on above: The drugs N-Acetylcy steine and Metamizole may falsely depress this assay.Serum Triglycerides Reference Interval Normal <150 mg/dL Borderline high 150 - 199 mg/dL High 200 - 499 mg/dL Very High > or = 500 mg/dL Very low density lipoprotein (VLDL) cholesterol measurementOrdered By: [facility] Juliette Zamorano on 11-18-2024 VLDL Cholesterol 43 mg/dL High 5-40 [facility] Vitamin D,25 Hydroxyon 11-18 Vitamin D 25-OH 12.0 ng/mL Normal [facility] Comment on above: Result Comment: Sabrina min D 25(OH) Status Range Deficiency <20 ng/mL (50nmol/L) Insufficiency 20 - 30 ng/mL (50 - 75 nmol/L) Sufficiency 30 - 100 ng/mL (75 - 250 nmol/L) Toxicity >100 ng/mL (>250 nmol/L) Performed By: #### L 100.0500, L506.1000, L500.4050, L501.9520, L501.9985, L500.4100, L506.0400 #### [facility] [address] [place], [address] White blood cell (WBC) count Ordered By: [facility] Juliettetoni Zamorano on 11-18-2024 WBC (Bld) [#/Vol] 8.7 10*3/uL 4.4-11.0 [facility] Inital Evaluation (1) - PTon 10-20-2024 Inital Evaluation (1) - PT [facility] [place] [address] [place] [address] / REHABILITATION SERVICES INITIAL EVALUATION MR#: [id number] Acct: [id number] Name: MARIKA LOZOYA Rep #: [id number] : 1990 34 From: Unruly Warner PT, Cert. MD [place], OCS Referring Dr.: DANIELLE Marrero Status: REG R Insurance: [facility] SELF PAY INSURANCE Patient's Visit Information Visit Information Visit Information: MARIKA LOZOYA is a 34 year old M referred to Physical Therapy by DANIELLE Marrero with a diagnosis of RADICULOPATHY ,LUMBAR REGION. Date of Evaluation: 10/20/24 Physical Therapist: Unruly Warner PT, Cert T, OCS Visit Plan Frequency: 2x /Week Duration: 4 Weeks Plan: PT INTERVENTIONS MIK EX'S ,DLS ,LE FLEXABILITY ,POSTURE/BODY MECHANICS AND MODALTIES Subjective Subjective: tHIS 34 y/o male presents to physical therapy with lumbar radiculopathy left leg. 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 This pain resolved after working out and time. Patient current pain has been going on for the last two months with no improvement. No injury or incident that he knows of to cause this back pain. His pain in located in the center of his back. Patient states the pain is worse on the left side and radiates down the back of his leg and calf. He describes the pain as a sharp burning. Seen did x- rays -. MRI needs PT thus recommend PT. Aggravating factors lifting ,bending ,standing .Alleviating factors resting and walking. Patient denies paresthesia/tingling -. Bowel/bladder -. Coughing/sneezing-. Patient sleeps good. Patient condition affects QOL and function. Patient goals to decrease pain. SOCIAL: single VOACTION: 2 [employer] LO[employer] JOB Pain Bilateral Back: Pain Intensity (Out of 10): 6 Pain Intensity Range: 10 Left Lower Extremity: Pain Intensity (Out of 10): 5 Pain Intensity Range: 10 Objective Objective: POSTURE: WFL GAIT: reciprocal pattern NEURO: denies paresthesia/tingling,refl exes L3-4 ,L4-5,L5-S1 1/3 PALAPTION: unremarkable FLEXABILITY:hamstrings min loss LUMBAR ROM: flexion min loss ,extension min loss ,side glides min loss MMT: quads/hams 4/5 .hip flexion 4/5 ,ankle 4/5 Special Tests L/S Slump test left side: Negative L/S Slump test right side: Negative L/S Left Straight Leg Raise: Negative L/S Right Straight Leg Raise: Negative Lumbar Standing: Flexion - Mechanical Response: No effect Lumbar Standing: Flexion - Symptoms During Testing: No effect Lumbar Standing: Flexion - Symptoms After Testing: No effect Lumbar Standing: Extension - Mechanical Response: No effect Lumbar Standing: Extension - Symptoms During Testing: Decreases Lumbar Standing: Extension - Symptoms After Testing: Better Lumbar Standing: Right Side Glides - Mechanical Response: No effect Lumbar Standing: Right Side [place] - Symptoms During Testing: No effect Lumbar Standing: Right Side [place] - Symptoms After Testing: No effect Lumbar Standing: Left Side [place] - Mechanical Response: No effect Lumbar Standing: Left Side [place] - Symptoms During Testing: No effect Lumbar Standing: Left Side [place] - Symptoms After Testing: No effect Lumbar Lying: Flexion - Mechanical Response: No effect Lumbar Lying: Flexion - Symptoms During Testing: Increases Lumbar Lying: Flexion - Symptoms After Testing: No worse Lumbar Lying: Extension - Mechanical Response: No effect Lumbar Lying: Extension - Symptoms During Testing: Decreases Lumbar Lying: Extension - Symptoms After Testing: Better Balance/Special Test Scores Oswestry Low Back Score: 17 Goals Goal 1:: Patient to be I with LUMBAR spine Goal Time Frame: 4-6 Weeks Goal 2:: Patient to improve lumbar ROM for function of recovery to lifting Goal Time Frame: 4-6 Weeks Goal 3:: Patient to improve back oswestry score by 5 points to improve function Goal Time Frame: 4-6 Weeks Goal 4:: Patient demonstrate 70% improvement with less pain and improved function Goal Time Frame: 4-6 Weeks Rehabilitation Potential Physical Therapy Diagnosis: This patient has possible disc with symptoms worse with bending ,lifting better with extension thus benefit from skilled PT Rehabilitation Potential: Good Anticipated Interventions Patient/Client Instruction: Educate patient on: Condition and Plan of Care For the Purpose of:: To decrease pain, To increase ROM, To improve muscle performance and motor function, To improve ability to perform ADL's, To improve performance and independence with ADL's, To improve ability of physical actions for home/community/work/leisu re, To improve health of tissue, To decrease soft tissue restriction and To increase flexibility/ROM Therapeutic Exercise to Include: Strength training, Body mechanics, Postural training, Flexibilty training, Dynamic Lumbar Stabilization and (more content not included)... Normal [facility] 09-23-2024 [facility] Office Visit (UROLWS ) ----- MARIKA LOZOYA ([id number]) 1990 M Date Time Provider Department 09/23/24 10:00 AM VANIA VELASQUEZ During your visit today, we recorded the following information about you: Temperature Pulse Respiration Blood pressure 97.9 degrees 100/minute 16/minute 118/76 Weight Height 144.7 kg 1.753 m Vania Velasquez PA-C 09/23/2024 11:02 AM Signed Marikaian Lozoya September 23, 2024 Referred by: CC: Desires permanent sterilization HPI: 34 year old male states he desire permanent surgical sterilization. Reports fathering 2 children and expressly states he does not desire to father children in the future. 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) 03/23/2017 Depression Hyperthyroidism Mood disorder ([facility]) Obesity, Class III, BMI 40-49.9 (morbid obesity) ([facility]) Obstructive sleep apnea PAST SURGICAL HISTORY Procedure Laterality Date HAND SURGERY HX 2009 right hand surgery following break KNEE SURGERY HX Left LAPAROSCOPY SURG CHOLECYSTECTOMY 09/14/15 PAST SURGICAL HISTORY OF right hand surgery x2 TONSILLECTOMY PRIMARY/SECONDARY Tonsillectomy Current Outpatient Medications Medication Sig buPROPion XL (WELLBUTRIN XL) 150 mg 24 hr tablet TAKE 1 TABLET BY MOUTH ONCE DAILY IN THE MORNING QUEtiapine (SEROQUEL) 100 mg tablet Take 1 tablet by mouth every 12 hours 6am/6pm. topiramate (TOPAMAX) 50 mg tablet Take 1 tablet by mouth once daily. levothyroxine (SYNTHROID) 100 mcg tablet Take 1 tablet by mouth once daily. No current facility-administered medications for this visit. Allergies: Morphine and Seasonal Allergies Social History Tobacco Use Smoking status: Former Current packs/day: 0.00 Types: Cigars, Cigarettes Quit date: 01/07/2015 Years since quittin.7 Smokeless tobacco: Never Tobacco comments: cigars Vaping Use Vaping status: current everyday user Substances: Nicotine, Flavoring Devices: Disposable Substance Use Topics Alcohol use: Yes Comment: special occassion Drug use: No Types: Marijuana Comment: denies use at this time Occupation/exposures: None ROS: ENMT: No changes in hearing or vision, no nose bleeds or other nasal problems SKIN: Negative for lesions, rash, and itching. ENDOCRINE: Negative for cold or heat intolerance, polyuria, polydipsia and goiter. RESPIRATORY: Negative for cough, wheezing and shortness of breath CARDIOVASCULAR: Negative for chest pain, leg swelling and palpitations GI: Negative for abdominal discomfort, blood in stools or black stools : Negative for dysuria, frequency and incontinence MUSCULOSKELETAL: Negative for joint pain or swelling, back pain, and muscle pain. PSYCH: Negative for sleep disturbance, mood disorder and recent psychosocial stressors. NEURO: Negative All other systems reviewed and are negative. Physical Exam: BP 118/76 (BP Site: Right Arm, BP Position: Sitting, BP Cuff Size: Large Adult) Pulse 100 Temp 36.6 ?C (97.9 ?F) (Temporal) Resp 16 Ht 175.3 cm (5' 9) Wt (!) 144.7 kg (319 lb) SpO2 100% BMI 47.11 kg/m? General appearance: cooperative, pleasant, no acute distress, alert and oriented, well hydrated, well nourished male. Genitourinary: Scrotum: non-tender, non-erythematous, no lesions Testes: descended bilaterally, non-tender,nl size bilaterally, no intratesticular masses bilaterally. Epididymes: Intact bilaterally, non-tender, no masses, palpable vas bilaterally. Penis: non-tender, NL phallus, no lesions, circumcision Yes, NL meatus, no identifiable peyronie's plaque. Assessment: 34 year old male desires vasectomy. The patient attests that he watched and understood the A Vasectomy video and read and understood the No-Scalpel Vasectomy pamphlet. He was instructed to stop all NSAIDs, aspirin and other blood thinners 5 days prior to the vasectomy. He was instructed to shave entire front of scrotum to the base of the penis the morning of the vasectomy. Postprocedure care, expectations, and limitations were discussed. He voiced understanding of these instructions and stated his questions were answered. Plan: 1) Proceed to vasectomy scheduling I personally counseled this patient about (more content not included)... Normal [facility] L/S Spine Min 4 Viewson 10-2 8-2024 L/S Spine Min 4 Views [facility] [address] [place] [address] L/S Spine Min 4 Views MR#: [id number] Acct: [id number] Name: MARIKA LOZOYA Rep #: [id number] : 1990 M 34 From: Kerline eddy MD PCP: [facility] Status: DEP AMB Study: L/S Spine Min 4 Views Date of Exam: 09/01/24 Exam# [id number] Ordering Dr: Claudia Bianchi [id number] HISTORY: low back pain -- please do upright AP, LAT, flex/ext. TECHNIQUE: XR Spine Lumbar Min 4 Views. COMPARISON: None. FINDINGS: VERTEBRAE: Vertebral body heights preserved. Posterior elements appear intact. ALIGNMENT: No significant anterior or posterior subluxation in neutral position or with flexion-extension maneuver. INTERVERTEBRAL DISCS: Disc spaces maintained. RAD/L/S Spine Min 4 Views IMPRESSION: No acute fracture or dislocation identified in the lumbar spine. Electronically Signed: Kerline Jimenez MD at 11:55 EDT Reading Location ID and State: [facility] / [place] Tel , Service support , CC: DANIELLE Marrero; [facility] News Videographer: Signed Normal [facility] Orthopedic Visit Reporton Orthopedic Visit Report [facility] [address] [place] [address] OFFICE VISIT Date of Service: 09/01/24 MR#: [id number] Acct: [id number] Name: MARIKA LOZOYA Rep #: [id number] : 1990 Provider: DANIELLE Marrero Age/Sex: 34/M Location: [facility] Status: Signed Intake Vital Signs 07/21/22 17:42 09/01/24 10:08 Height 5 ft 9 in 5 ft 9 in Weight: 322 lb BMI 47.5 Intake Visit Reasons: LUMBAR SPINE Chief Complaint: lumbar spine pain Accompanied by: Self Is patient in pain?: Yes (lumbar spine) Pain scale (1-10): 5 Allergies morphine Allergy (Verified 09/01/24 10:09) [facility] Medical History (Updated 09/01/24 @ 11:03 by DANIELLE Marrero) Hypothyroidism Bipolar 1 disorder Surgical History (Updated 09/01/24 @ 10:12 by Darling Villalobos) History of cholecystectomy Hx of tonsillectomy H/O: knee surgery H/O hand surgery Social History Smoking Status: Current some day smoker tobacco type: cigarettes and e-cigarettes HPI LUMBAR SPINE Details: This documentation accurately reflects the service provided and the decisions made by me, DANIELLE Marrero 09/01/24 1007. Part of today???s visit was documented by Darling Villalobos LPN, acting as scribe. MARIKA LOZOYA is a 34 year old M here today for initial evaluation of lumbar spine pain. 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 This pain resolved after working out and time. His current pain has been going on for the last two months with no improvement. No injury or incident that he knows of to cause this back pain. His pain in located in the center of his back. He states the pain is worse on the left side and radiates down the back of his leg and calf. He describes the pain as a sharp burning, he also experiencing numbness into the left leg and into all the toes of his left foot. He has done PT in the past for his back pain and continues to do a home exercise program that they had given him. He has not seen a chiropractor or pain management. No balance issues or dexterity changes. Ortho Exam General General: Yes no acute distress Neurologic: Yes alert and Yes oriented x3 Spine SPINE TESTING CERVICAL THORACIC LUMBAR Musculoskeletal Strength 0=absent - 5=normal Details: Neurological exam of the lower extremities shows 5x5 power. Normal sensations across all dermatomes. No hyperreflexia. No midline or paraspinal tenderness. Passive straight leg test negative. Figure 4 negative. Coding Level of Care Code New Pt Off vis,new,level 4 Patient Type New Diagnoses Lumbar radiculopathy M54.16 Assessment and Plan Assessment and Plan (1) Lumbar radiculopathy: Status: Acute Orders: Orders L/S Spine Min 4 Views Today M54.50 - Low back pain, unspecified Spine Lumbar (Routine) Today M54.16 - Radiculopathy, lumbar region Medications: Discontinued hgyssqph-htpdiiwqw-GL 3.5-10,000-1 mg/mL-unit/mL-% Discontinued Reason: Pt no longer taking 4 drps OT TID #120 0RF Plan Obtained and reviewed lumbar xrays today with the patient. Imaging shows a relatively normal lumbar spine with mild degenerative changes at L5-S1. No instability on flexion/extension views. No MRI. Explained imaging findings in detail. Patient has had 8 weeks of this radicular lumbar back pain with pain down the back of his thigh and calf with numbness and tingling into his left foot and toes. He has continued to try and exercise during this time which includes yoga and stretching which has only given him temporary mild relief. He has done physical therapy in the past and has continued to do their home exercise program on his own during this time with no improvement. He has also taken Advil with only temporary relief. At this time, an MRI is warranted to further assess this issue. He will follow up after the MRI to review the results. Patient is in agreement. 09/01/24 1106 Date Claudia Mayfield Signature: Date (if applicable) CC: [facility] T4 Free SerPl-ncon 024 Free T4 [Mass/Vol] 1.1 ng/dL Normal 0.9-1.7 [facility] Comment on above: Order Comment: Speci men Type: BLOOD SPECIMENOrdering Facility: [facility] Address: [address] [place], [place] [id number] Performed By: #### 3 024-7, 3016-3 ####[facility] [id number] [address] OF [facility] TSH SerPl-aCncon 08-19-2024 TSH Qn 0.979 m[IU]/L Normal 0.270-4.200 [facility] Comment on above: Order Comment: Speci men Type: BLOOD SPECIMENOrdering Facility: [facility] Address: [facility], [place] [id number] Performed By: #### 3 024-7, 3016-3 ####[facility] [id number] [address] Lauren 07-15-2024 CNPN Telephone (HNQ) ----- MARIKA LOZOYA ([id number]) 1990 M Date Time Provider Department 07/15/24 KOURTNEY SHERWOOD HNQ During your visit today, we recorded the following information about you: Luis Garcia 07/15/2024 9:33 AM Signed Pt called in and asked for hearing test results, unable to acess migdalia, I sent a text message link and offered to print out audio graph and mail it, pt agreed to receive graph via mail Allergies As of Date: 07/15/2024 Noted Allergy Reaction MORPHINE 07/28/2015 1 - Mental Status Change Comments: States was twitching and blacked out SEASONAL ALLERGIES 07/10/2018 9 - Itching Date Reviewed: 06/26/2024 Reviewed by: Fernando Reese APRN.SAUSAGE CUTTER - Fully Assessed Prescriptions as of 07/15/2024 - buPROPion XL (WELLBUTRIN XL) 150 mg 24 hr tablet TAKE 1 TABLET BY MOUTH ONCE DAILY IN THE MORNING - QUEtiapine (SEROQUEL) 100 mg tablet Take 1 tablet by mouth every 12 hours 6am/6pm. - topiramate (TOPAMAX) 50 mg tablet Take 1 tablet by mouth once daily. - traZODone (DESYREL) 50 mg tablet Take 1 tablet by mouth at bedtime as needed. - levothyroxine (SYNTHROID) 100 mcg tablet Take 1 tablet by mouth once daily. - lithium carbonate ER 450 mg CR tablet Take 450 mg by mouth once daily. In the evening. - Echinacea 500 mg cap Take by mouth once each week. Problem List As Of Date 07/15/2024 Noted Resolved Unspecified sleep apnea [G47.30] 01/20/2013 10/18/2013 PTSD (post-traumatic stress disorder) [F43.10] 06/04/2013 Nightmares associated with chronic post-traumat*06/04/2013 SURESH (obstructive sleep apnea) [G47.33] 10/18/2013 Enlarged tonsils [J35.1] 10/18/2013 Auditory hallucinations [R44.0] 02/03/2015 Outbursts of anger [R45.4] 02/03/2015 Other cholelithiasis without obstruction [K80.8*08/19/2015 Morbid obesity (HCC) [E66.01] 09/13/2015 LFTs abnormal [R79.89] 09/13/2015 Low back pain [M54.50] 07/21/2016 Bipolar affective disorder, manic, severe, with*03/23/2017 Cannabis abuse with cannabis-induced anxiety di*03/23/2017 Chronic low back pain without sciatica [M54.50,*06/29/2017 Obesity, Class III, BMI >= 40 [E66.01] 12/12/2018 Encounter Status:Closed by LUIS GARCIA on 07/15/24 [facility] CNOVbelinda 06-26-2024 CNOV Office Visit (UCWSTR ) ----- MARIKA LOZOYA ([id number]) 1990 M Date Time Provider Department 06/26/24 10:00 AM FERNANDO REESE UCWSTR During your visit today, we recorded the following information about you: Temperature Pulse Respiration Blood pressure 98.3 degrees 100/minute 20/minute 128/86 Weight 139.6 kg Fernando Reese, BURNER TECHNICIAN.SAUSAGE CUTTER 06/26/2024 10:12 AM Signed This note was created using [employer]. Subjective Marika Lozoya is a 33 year old male. HPI Pt notes cough and vomiting mucous for the last two weeks. Symptoms seem episodic. Nephew had similar symptoms and was diagnosed with bronchitis. Review of Systems Constitutional: Positive for fever. HENT: Positive for congestion and sore throat. Negative for ear pain. Respiratory: Positive for cough. Neurological: Positive for headaches. Objective BP 128/86 Pulse 100 Temp 36.8 ?C (98.3 ?F) Resp 20 Wt (!) 139.6 kg (307 lb 12.2 oz) SpO2 92% BMI 46.11 kg/m? Physical Exam Vitals and nursing note reviewed. Constitutional: General: He is not in acute distress. Appearance: Normal appearance. He is not ill-appearing. HENT: Head: Normocephalic. Mouth/Throat: Mouth: Mucous membranes are moist. Eyes: Conjunctiva/sclera: Conjunctivae normal. Cardiovascular: Rate and Rhythm: Regular rhythm. Tachycardia present. Pulmonary: Effort: Pulmonary effort is normal. Comments: Diminished lung sounds in the bilateral upper lung sandhu with expiratory wheezes Musculoskeletal: General: Normal range of motion. Cervical back: Normal range of motion. Skin: General: Skin is warm and dry. Neurological: General: No focal deficit present. Mental Status: He is alert. Psychiatric: Mood and Affect: Mood normal. Behavior: Behavior normal. Assessment and Plan ASSESSMENT/PLAN: 1. Bacterial pneumonia - ICD9: 482.9, ICD10: J15.9 As patient has had 2 weeks of ongoing symptoms with diminished lung sounds and wheezes my suspicion for pneumonia is high, patient started on doxycycline. Patient was offered cough suppressant which she states he already has at home. Patient is to follow-up with PCP and return for any new or worsening concerns. - DOXYCYCLINE MONOHYDRATE 100 MG TABLET SOSA Roth Tim, APRN.CNP 06/26/2024 10:06 AM Signed GENERAL INFORMATION: Pneumonia is a lung infection caused by bacteria, viruses, or bacteria-like germs. It usually cannot be spread to other people. INSTRUCTIONS: 1. If you are given a prescription for antibiotics, take them as ordered by your doctor until they are all gone. 2. Use a cool-mist humidifier or vaporizer to increase air moisture. This will make it easier for you to breathe. Do not use hot steam. 3. Rest in until your temperature is normal (98.6 F or 37 C) and your chest pain and shortness of breath are gone. 4. Slowly restart your normal activities. You may feel weak and tired for up to six weeks. 5. Drink at least one glass of water or other liquid every hour. This will help thin sputum and make it easier to cough up. 6. If you have chest pain, applying a heating pad or warm compresses for 10 to 20 minutes several times a day to the painful area may lessen the pain. 7. Take several deep breaths and then cough frequently during the day. This will help get rid of the infection. 8. You may take medicines that you can buy without a prescription to treat pain and fever. Use cough medicine only if absolutely necessary as coughing helps clear the infection. CONTACT YOUR DOCTOR IF: 1. Your temperature is over 102 F (39 C). 2. Your chest pain, fever or chills do not get better with medicine in 2-3 days. 3. You develop nausea, vomiting or diarrhea. 4. You are coughing up large amounts of bloody sputum. 5. You have any problems that may be related to the medicine that you are taking (such as rash, itching, swelling, or stomach pain). RETURN TO THE EMERGENCY DEPARTMENT IF: 1. You have a lot of trouble breathing or you have dark or bluish fingernails, toenails, or skin. 2. You have a severe headache, neck stiffness, or feel confused. Allergies As of Date: 06/26/2024 Noted Allergy Reaction MORPHINE 07/28/2015 1 - Mental Status Change Comments: States was twitching and blacked out SEASONAL ALLERGIES 07/10/2018 9 - Itching Date Reviewed: 06/26/2024 Reviewed by: Fernando Reese APRN.SAUSAGE CUTTER - Fully Assessed Reason for Visit: Cough [28] Cmt: Chest congestion, fevers intermittent x2 weeks Primary Visit Diagnosis:Bacterial pneumonia [J15.9] Order(s):doxycycline monohydrate 100 mg tabletTake 1 tablet by mouth two times a day for 5 days.Disp: 10 tabletRfl: 0 Prescriptions as of 06/26/2024 - doxycycline monohydrate 100 mg tablet Take 1 tablet by mouth two times a day for 5 days. - buPROPion XL (WELLBUTRIN XL) 150 mg 24 hr tablet TAKE 1 TABLET BY MOUTH ONCE DAILY IN THE MORNING - (more content not included)... Normal [facility] 05-21-2024 ALL[facility] HNO ID: [id number] Author: ?, ?, ? Service: ? Author Type: ? Type: Allied Health Filed: 05/21/2024 11:27 Note Text: Radiology Service Progress Note DATE OF SERVICE: May 21, 2024 TIME: 11:21 AM PATIENT IDENTITY VERIFICATION COMPLETED USING TWO (2) STANDARD IDENTIFIERS: Name and Date of confirmed by patient verbally. FALL SCREENING: Has the patient had 2 falls in the last year or 1 fall with injury or currently using an Ambulatory Assistive Device (Walker, Cane, Wheelchair, Crutches, etc.)? No PATIENT GENDER DATA: Male PATIENT RELEVANT IMPLANT DATA REVIEWED: Yes PATIENT PRESENTS WITH AN IMPLANTABLE OR ATTACHED BANK TELLER: No ALLERGIES: Reviewed and unchanged CONTRAST ALLERGY: NO. EXAM: MRI - CONTRAST TYPE: GROUP I OR GROUP III RISK FACTORS: N/A CREATININE: Creatinine Date Value Ref Range Status 02/25/2024 0.96 0.73 - 1.22 mg/dL Final 05/04/2023 1.08 0.73 - 1.22 mg/dL Final 06/20/2022 0.90 0.73 - 1.22 mg/dL Final Estimated Glomerular Filtration Rate Date Value Ref Range Status 02/25/2024 107 >=60 mL/min/1.73m? Final Comment: Estimated Glomerular Filtration Rate (eGFR) is calculated using the 2020 CKD-EPI creatinine equation. This equation utilizes serum creatinine, sex, and age as parameters. The creatinine assay has traceable calibration to isotope dilution-mass spectrometry. Refer to KDIGO guidelines for clinical interpretation. In patients with unstable renal function, e.g. those with acute kidney injury, the eGFR may not accurately reflect actual GFR. eGFR- Date Value Ref Range Status 07/28/2015 >60 Final P.O.C.T. RESULTS: N/A May 21, 2024 TREATMENT: N/A PERIPHERAL IV DATA: Ambulatory: A peripheral IV was started in the Left antecubital site with a Angio cath: 22 gauge. RADIOLOGY DEPARTMENT: MR; Exam(s) Completed: Head: Routine Brain SIGNATURE: Yazmin Banda/[facility] PATIENT NAME: Marika Lozoya DATE: May 21, 2024 TIME: 11:21 AM Normal [facility] MRI BRAIN WO/W IVCONon 05-21 MRI BRAIN WO/W IVCON * * *Final Report* * * DATE OF EXAM: May 21 2024 1:10PM LD 0295 - MRI BRAIN WO/W IVCON / PROCEDURE REASON: multiple diagnoses * * * * Physician Interpretation * * * * EXAMINATION: MRI BRAIN WO/W IVCON HISTORY: ASNHL (asymmetrical sensorineural hearing loss) Tinnitus, left ear TECHNIQUE: MRI brain IAC protocol without and with contrast. MQ: [id number] Contrast: 20 mL Dotarem IV COMPARISON: Brain MRI performed 01/07/2015 RESULT: Acute Change: There is no evidence of restricted diffusion to suggest an acute infarct. Hemorrhage: No evidence of prior parenchymal hemorrhage within constraints of the provided sequences. Mass Lesion/ Mass Effect: No evidence of an intracranial mass lesion or intracranial mass effect. Specifically, there is no IAC/CPA mass. Cisternal and canalicular segments of the seventh and eighth cranial nerves are normal in morphology, without evidence of pathologic enhancement. Remainder of the visualized cranial nerves are unremarkable. No extra-axial collections. Chronic Change: The white matter is within normal limits of signal intensity for age. Parenchyma: No significant volume loss for age. The brain parenchyma is otherwise within normal limits of signal intensity and morphology. Ventricles: Normal caliber and morphology. Skull Base: The cochlea and vestibular apparatus appear normal in configuration on the CISS sequence bilaterally. No evidence of a marrow replacement process in the imaged skull base. Other: The visualized paranasal sinuses and mastoid air cells are clear. The orbits and extracranial soft tissues are unremarkable. IMPRESSION: Negative MRI of the IACs. No finding to suggest vestibular schwannoma News Videographer: RONAL Transcribe Date/Time: May 22 2024 4:16P Dictated by : HILDA PETERSEN MD This examination was interpreted and the report reviewed and electronically signed by: HILDA PETERSEN MD on May 22 2024 4:21PM EST [id number] Normal [facility] CNOVon 05-01-2024 CNOV Office Visit (OTOLMN ) ----- MARIKA LOZOYA ([id number]) 1990 M Date Time Provider Department 05/01/24 1:00 PM KOURTNEY SHERWOOD OTOLMN During your visit today, we recorded the following information about you: Vineet Chow MA 05/01/2024 1:17 PM Signed Tobacco Use: 0 packs/day, for .5 years. Quit 07/09/2015. Types: Cigars, Cigarettes Was smoking cessation packet given? N/A - Patient is a non-smoker or quit >1 year ago. Was a referral initiated?N/A Patient is a non-smoker Kourtney Sherwood APRN.CNP 05/02/2024 7:16 AM Addendum OTOLARYNGOLOGY-HEAD AND NECK SURGERY CC: Marika Lozoya is a 33 year old male who is self referred for hearing loss . Assessment: Asnhl (asymmetrical sensorineural hearing loss) (primary encounter diagnosis) Tinnitus, left ear Plan: - Asymmetrical sensorineural hearing loss present, left worse than right. Poor reliability per audiology note. 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 Was told by ENT in the past that he had significant hearing loss Left ear is worse than the R overall- certain pitches give him headaches Denies dizziness or room spinning Mild pressure to L ear intermittently Does get some drainage if he gets water in his ears Some popping to L side Asking people to repeat things often Struggles more with alarms and sounds of beeping become more bothersome and sensitive to him ALLERGIES Allergen Reactions Morphine Other: See Comments States was twitching and blacked out Seasonal Allergies Itching Current Outpatient Medications Medication Sig buPROPion XL (WELLBUTRIN XL) 150 mg 24 hr tablet TAKE 1 TABLET BY MOUTH ONCE DAILY IN THE MORNING QUEtiapine (SEROQUEL) 100 mg tablet Take 1 tablet by mouth every 12 hours 6am/6pm. topiramate (TOPAMAX) 50 mg tablet Take 1 tablet by mouth once daily. levothyroxine (SYNTHROID) 100 mcg tablet Take 1 tablet by mouth once daily. traZODone (DESYREL) 50 mg tablet Take 1 tablet by mouth at bedtime as needed. (Patient not taking: Reported on 05/24/2023) lithium carbonate ER 450 mg CR tablet Take 450 mg by mouth once daily. In the evening. (Patient not taking: Reported on 05/24/2023) Echinacea 500 mg cap Take by mouth once each week. (Patient not taking: Reported on 05/24/2023) No current facility-administered medications for this visit. 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) 03/23/2017 Depression Mood disorder ([facility]) Obesity, Class III, BMI 40-49.9 (morbid obesity) ([facility]) Obstructive sleep apnea PAST SURGICAL HISTORY Procedure Laterality Date HAND SURGERY HX 2009 right hand surgery following break KNEE SURGERY HX Left LAPAROSCOPY SURG CHOLECYSTECTOMY 09/14/15 PAST SURGICAL HISTORY OF right hand surgery x2 TONSILLECTOMY PRIMARY/SECONDARY Tonsillectomy Social History: Social History Tobacco Use Smoking status: Former Packs/day: 0.00 Years: 0.50 Additional pack years: 0.00 Total pack years: 0.00 Types: Cigars, Cigarettes Quit date: 07/09/2015 Years since quittin.8 Smokeless tobacco: Never Tobacco comments: cigars Substance Use Topics Alcohol use: Yes Comment: special occassion Drug use: No Types: Marijuana Comment: denies use at this time FAMILY HISTORY Problem Relation Age of Onset Breast Cancer Maternal Grandmother Cancer Maternal Grandmother Stroke Maternal Grandmother Heart Father Hypertension Maternal Grandfather Hypertension Paternal Grandmother Diabetes Mother Stroke Mother other (bells palsy) Mother PHYSICAL EXAM: On physical examination Marika Lozoya is a well-developed, well nourished male. His speech is normal and his voice is clear. Mental status revealed patient to be alert and oriented. Mood is appropriate. Details of the physical examination: CRANIAL NERVE EXAM: II: Pupillary reflexes normal III, IV, : EOM normal V: 1,2,3: normal sensation VII: Normal strength in all divisions. IX, X: normal voice, palatal elevation and sensation XI: Shoulder strength normal XII: Tongue mobility normal HEAD AND FACE: Physical examination of the head, neck, external nose, external ears, mouth and face fails to demonstrate any significant abnormality or asymmetry to critical face to face observation. Skin and scalp are normal. EARS: RT Canal: patent RT Drum: intact RT Pneumotoscopy: mobile LT Canal: patent LT Drum: intact LT Pneumotoscopy: mobile NOSE: Examination of the nasal cavity revealed a septum which is midline. The mucosa is pink, and the (more content not included)... Normal [facility] Office Visit (CDISMN ) ----- MARIKA LOZOYA ([id number]) 1990 M Date Time Provider Department 05/01/24 12:30 PM [facility] During your visit today, we recorded the following information about you: Dahlia Holcomb AUD 05/01/2024 3:23 PM Signed [facility] [place] AUDIOLOGIC EVALUATION REPORT Name: Marika Lozoya [facility]#: [id number] Date of Service: 05/01/2024 Date of : 1990 Age: [age] year old Referred by: SELF Referred for: Evaluation of suspected change in hearing, tinnitus, or balance. Referral documented: No referral on file Patient's major complaints: Reduced hearing in both ears, Tinnitus left ear greater than right ear, Pressure/fullness in both ears Marika Lozoya was seen for an initial audiologic evaluation with complaints of hearing loss in the left ear greater than the right ear. 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 Patient reported he feels he has had regular issue with his ears since that incident. Today patient reported reduced hearing and aural fullness in the left ear, as well as tinnitus greater in the left ear than the right ear. Patient reported history of occupational noise exposure. Today patient denied otalgia, otorrhea, dizziness, history of otologic surgery or ototoxicity. 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 Inconsistent responses when using ascending method and traditional thresholding method. Also inconsistency noted across transducers (headphones vs inserts). Pure tones are in poor agreement with speech testing, as all speech measurements were able to be obtained within normal limits. AUDIOLOGIC EVALUATION Following is a brief interpretation of the obtained findings from the audiologic evaluation. Refer to the Auditory Test Record for complete audiometric results. The patient was counseled about the test findings and appropriate audiologic recommendations were made. SUMMARY: See procedures tab for audiometric results. OTOSCOPY RIGHT EAR: Otoscopic inspection revealed ear canal was clear with an identifiable cone of light. LEFT EAR: Otoscopic inspection revealed ear canal was clear with an identifiable cone of light. TYMPANOMETRY Description of procedure: This test is an objective evaluation of middle ear function. CPT code: 80484 RIGHT EAR: Normal ME function. LEFT EAR: Normal ME function. ACOUSTIC REFLEXES Description of procedure: This test is an objective measure of auditory and facial nerve pathways. CPT code: 94932, 08484 RIGHT EAR PROBE EAR: (ipsi right stimulus ear; contralateral left stimulus ear): Acoustic Reflex Pattern Did not test Acoustic Reflex Decay (left stimulus ear): Did not test. LEFT EAR PROBE EAR: (ipsi left stimulus ear; contralateral right stimulus ear): Acoustic Reflex Pattern Did not test Acoustic Reflex Decay (right stimulus ear):Did not test. PURE TONE AUDIOMETRY AND SPEECH TESTING Description of procedure: This test is an objective evaluation hearing sensitivity via air and bone conduction and speech recognition testing. CPT code: 91519 RIGHT EAR: Hearing Sensitivity: Pure tone thresholds were obtaining in the essentially mild hearing loss range, however speech testing was able to be obtained within normal limits. Cannot rule out non-organic hearing loss. Word Recognition Score: Excellent (90%). WRS is consistent with hearing sensitivity. Words were presented at 35 dB HL is below (less than or equal to 40 dB HL) intensity level for average conversational speech. The NU-6 Ordered by Difficulty Word List (10 words) was used for testing. DPOAEs (6322-2800 Hz): Essentially present. LEFT EAR: Hearing Sensitivity: Pure tone thresholds were obtaining in the mild to moderate hearing loss range, however speech testing was able to be obtained within normal limits. Cannot rule out non-organic hearing loss. Word Recognition Score: Excellent (90%). WRS is consistent with hearing sensitivity. Words were presented at 35 dB HL is below (less than or equal to 40 dB HL) intensity level for average conversational speech. The NU-6 Ordered by Difficulty Word List (10 words) was used for testing. DPOAEs (3060-7713 Hz): Present and robust at all frequencies tested. 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 Inconsistent responses when using ascending method and traditional thresholding method. Also inconsistency noted across transducers (headphones vs inserts). Pure tones are in poor agreement with speech testing, as all speech measurements were able to be obtained within normal limits. RECOMMENDATIONS * Continue medical follow-up with Kourtney Sherwood CNP. * True hearing thresholds cannot be determined based on today's josé miguel (more content not included)... Normal [facility] HEARING TEST/AUDIOGRAMon [facility] XR Lumbar spine 3 Viewson IMPRESSION: Lumbar s pine mild degenerative changes. News Videographer: PSCB Transcribe Date/Time: Mar 03 2024 4:56P Dictated by : ESPERANZA ABARCA MD This examination was interpreted and the report reviewed and electronically signed by: ESPERANZA ABARCA MD on Mar 03 2024 4:57PM [facility] DIVISION OF RADIOLOGY * * *Final Report* * * DATE OF EXAM: Mar 03 2024 9:56AM WOX [id number] - XR LUMBAR 3V AP/LAT/L5-S1 / PROCEDURE REASON: m54.50 * * * * Physician Interpretation * * * * EXAM TITLE: XR LUMBAR 3V AP/LAT/L5-S1 EXAM DATE/TIME: 03/03/2024 9:56 AM COMPARISON: X-ray lumbar spine on 05/16/2017 CLINICAL INDICATION/HISTORY: Low back pain. TECHNIQUE: AP, lateral and cone down lateral views of the lumbar spine are presented. FINDINGS: There are five bii-jwf-wyvazqn lumbar vertebrae. No fracture or subluxations are noted. The disc spaces are well preserved. There is mild osteophyte formation. DIVISION OF RADIOLOGY Provider, Hayes Ortega [facility] - 03/03/2024 * * *Final Report* * * DATE OF EXAM: Mar 03 2024 9:56AM WOX [id number] - XR LUMBAR 3V AP/LAT/L5-S1 / PROCEDURE REASON: m54.50 * * * * Physician Interpretation * * * * EXAM TITLE: XR LUMBAR 3V AP/LAT/L5-S1 EXAM DATE/TIME: 03/03/2024 9:56 AM COMPARISON: X-ray lumbar spine on 05/16/2017 CLINICAL INDICATION/HISTORY: Low back pain. TECHNIQUE: AP, lateral and cone down lateral views of the lumbar spine are presented. FINDINGS: There are five vnn-ddv-voygtyn lumbar vertebrae. No fracture or subluxations are noted. The disc spaces are well preserved. There is mild osteophyte formation. IMPRESSION IMPRESSION: Lumbar spine mild degenerative changes. News Videographer: PSCB Transcribe Date/Time: Mar 03 2024 4:56P Dictated by : ESPERANZA ABARCA MD This examination was interpreted and the report reviewed and electronically signed by: ESPERANZA ABARCA MD on Mar 03 2024 4:57PM EST [facility] Radiology Study observation (narrative) [facility] XR Lumbar spine 3 ViewsOrder ed By: Ccf Provider on 03-03-2024 [facility] No Panel Informationon 05-05 Thyroid Stimulating Hormone (TSH) 0.69 uIU/mL 0.358-3.74 [facility] Work Phone: CBCon 08-02-2021 Erythrocyte distribution width (RBC) [Ratio] 13.2 % Normal 11.5 - 14.5 [facility] Comment on above: Performed By: #### C BC #### [facility] [address] [place] [address] Hematocrit (Bld) [Volume fraction] 46.7 % Normal 41.0 - 52.0 [facility] Comment on above: Performed By: #### C BC #### [facility] [address] [place] [address] Hemoglobin (Bld) [Mass/Vol] 14.8 g/dL Normal 13.5 - 17.5 [facility] Comment on above: Performed By: #### C BC #### [facility] [address] [place] [address] MCHC (RBC) [Mass/Vol] 31.7 g/dL Low 32.0 - 36.0 [facility] Comment on above: Performed By: #### C BC #### [facility] [address] [place] [address] MCV (RBC) [Entitic vol] 95 fL Normal 80 - 100 [facility] Comment on above: Performed By: #### C BC #### [facility] [address] [place] [address] Platelets (Bld) [#/Vol] 218 10*3/uL Normal 150 - 450 [facility] Comment on above: Performed By: #### C BC #### [facility] [address] [place] [address] RBC 4.91 x10E12/L Normal 4.50 - 5.90 [facility] Comment on above: Performed By: #### C BC #### [facility] [address] [place] [address] WBC (Bld) [#/Vol] 12.0 10*3/uL High 4.4 - 11.3 [facility] Comment on above: Performed By: #### C BC #### [facility] [address] [place] [address] COMPREHENSIVE PANELon 2020 Albumin [Mass/Vol] 4.2 g/dL Normal 3.4 - 5.0 [facility] Comment on above: Performed By: #### C MP #### [facility] [address] [place] [address] ALP [Catalytic activity/Vol] 55 U/L Normal 33 - 120 [facility] Comment on above: Performed By: #### C MP #### [facility] [address] [place] [address] ALT [Catalytic activity/Vol] 106 U/L High 10 - 52 [facility] Comment on above: Result Comment: Rosie ents treated with Sulfasalazine may generate falsely decreased results for ALT. Performed By: #### C MP #### [facility] [address] [place] [address] Anion gap [Moles/Vol] 12 mmol/L Normal 10 - 20 [facility] Comment on above: Performed By: #### C MP #### [facility] [address] [place] [address] AST [Catalytic activity/Vol] 53 U/L High 9 - 39 [facility] Comment on above: Performed By: #### C MP #### [facility] [address] [place] [address] Bilirubin [Mass/Vol] 0.4 mg/dL Normal 0.0 - 1.2 [facility] Comment on above: Performed By: #### C MP #### [facility] [address] [place] [address] Calcium [Mass/Vol] 9.4 mg/dL Normal 8.6 - 10.3 [facility] Comment on above: Performed By: #### C MP #### [facility] [address] [place] [address] Chloride [Moles/Vol] 112 mmol/L High 98 - 107 [facility] Comment on above: Performed By: #### C MP #### [facility] [address] [place] [place] [address] Creatinine [Mass/Vol] 0.85 mg/dL Normal 0.50 - 1.30 [facility] Comment on above: Performed By: #### C MP #### [facility] [address] [place] [place] [address] GFR- AM. >60 Normal >60 [facility] Comment on above: Result Comment: CALC ULATIONS OF ESTIMATED GFR ARE PERFORMED USING THE MDRD STUDY EQUATION FOR THE IDMS-TRACEABLE CREATININE METHODS. CLIN CHEM 2007;53:766-72 Performed By: #### C MP #### [facility] [address] [place] [address] GFR-NON AM. >60 Normal >60 [facility] Comment on above: Performed By: #### C MP #### [facility] [address] [place] [address] Glucose [Mass/Vol] 88 mg/dL Normal 74 - 99 [facility] Comment on above: Performed By: #### C MP #### [facility] [address] [facility] [place] [address] HCO3 (Bld) [Moles/Vol] 23 mmol/L Normal 21 - 32 [facility] Comment on above: Performed By: #### C MP #### [facility] [address] [place] [address] Potassium [Moles/Vol] 4.0 mmol/L Normal 3.5 - 5.3 [facility] Comment on above: Performed By: #### C MP #### [facility] [address] [place] [address] Protein [Mass/Vol] 6.7 g/dL Normal 6.4 - 8.2 [facility] Comment on above: Performed By: #### C MP #### [facility] [address] [place] [address] Sodium [Moles/Vol] 143 mmol/L Normal 136 - 145 [facility] Comment on above: Performed By: #### C MP #### [facility] [address] [facility] [place] [address] Urea nitrogen [Mass/Vol] 15 mg/dL Normal 6 - 23 [facility] Comment on above: Performed By: #### C MP #### [facility] [address] [facility] [place] [address] HEMOGLOBIN A1Con 08-02-2021 Glucose [Mass/Vol] 100 mg/dL Normal [facility] Comment on above: Performed By: #### H BA1E #### [facility] [address] [place] [address] HbA1c (Bld) [Mass fraction] 5.1 % Normal [facility] Comment on above: Result Comment: Diag nosis of Diabetes-Adults Non-Diabetic: < or = 5.6% Increased risk for developing diabetes: 5.7-6.4% Diagnostic of diabetes: > or = 6.5% . Monitoring of Diabetes Age (y) Therapeutic Goal (%) Adults: >18 <7.0 Pediatrics: 13-18 <7.5 7-12 <8.0 0- 6 7.5-8.5 [employer]. Diabetes Care 33(S1), Nov 2009. Performed By: #### H BA1E #### [facility] [address] [place] [address] LITHIUMon 08-02-2021 Citrus [Moles/Vol] 0.73 mmol/L Normal 0.60 - 1.20 [facility] Comment on above: Performed By: #### L ITH #### [facility] [address] [place] [address] TSH WITH REFLEX TO FREE T4 I F ABNORMALon 08-02-2021 TSH Qn 2.59 m[IU]/L Normal 0.44 - 3.98 [facility] Comment on above: Result Comment: TSH testing is performed using different testing methodology at [facility] than at other [facility]. Direct result comparisons should only be made within the same method. Performed By: #### T HYDS #### [facility] [address] [place] [address] Hemoglobin A1Con 08-01-2021 Glucose [Mass/Vol] 100 mg/dL [facility] [employer] Work Phone: HbA1c (Bld) [Mass fraction] 5.1 % [facility] [employer] Work Phone: Comment on above: Diagnosis of Diabete s-Adults Non-Diabetic: < or = 5.6% Increased risk for developing diabetes: 5.7-6.4% Diagnostic of diabetes: > or = 6.5%. Monitoring of Diabetes Age (y) Therapeutic Goal (%) Adults: >18 <7.0 Pediatrics: 13-18 <7.5 7-12 <8.0 0- 6 7.5-8.5 [employer]. Diabetes Care 33(S1), Nov 2009. IO UA (nonautomated w/o micr oscopy)on 08-01-2021 Protein (U) [Mass/Vol] Negative [facility] Work Phone: IO UA (nonautomated w/o microscopy) Normal (0.2-1.0 mg/dl) [facility] Work Phone: IO UA (nonautomated w/o microscopy) Trace -[facility] Work Phone: IO UA (nonautomated w/o microscopy) Negative [facility] Work Phone: IO UA (nonautomated w/o microscopy) 7.0 1 [facility] Work Phone: IO UA (nonautomated w/o microscopy) 1.020 1 [facility] Work Phone: IO UA (nonautomated w/o microscopy) Clear [facility] Work Phone: IO UA (nonautomated w/o microscopy) Yellow [facility] Work Phone: Laboratory - Chemistry and C hemistry - challengeon 08-01-2021 Albumin BCP dye [Mass/Vol] 4.2 g/dL 3.4 - 5.0 [facility] Work Phone: ALP [Catalytic activity/Vol] 55 U/L 33 - 120 [facility] Work Phone: ALT With P-5'-P [Catalytic activity/Vol] 106 U/L above high threshold 10 - 52 [facility] Work Phone: Comment on above: Patients treated wit h Sulfasalazine may generate falsely decreased results for ALT. Anion gap [Moles/Vol] 12 mmol/L 10 - 20 [facility] Work Phone: AST With P-5'-P [Catalytic activity/Vol] 53 U/L above high threshold 9 - 39 [facility] Work Phone: Bilirubin [Mass/Vol] 0.4 mg/dL 0.0 - 1.2 [facility] Work Phone: Calcium [Mass/Vol] 9.4 mg/dL 8.6 - 10.3 -[facility] Work Phone: Chloride [Moles/Vol] 112 mmol/L above high threshold 98 - 107 [facility] Work Phone: CO2 [Moles/Vol] 23 mmol/L 21 - 32 [facility] [place] Work Phone: Creatinine [Mass/Vol] 0.85 mg/dL See Below [facility] Work Phone: Comment on above: Reference Range: 0.5 0 - 1.30 Glucose [Mass/Vol] 88 mg/dL 74 - 99 -[facility] [place] Work Phone: Potassium [Moles/Vol] 4.0 mmol/L 3.5 - 5.3 [facility] [place] Work Phone: Protein [Mass/Vol] 6.7 g/dL 6.4 - 8.2 -[facility] [place] Work Phone: Sodium [Moles/Vol] 143 mmol/L 136 - 145 -[facility] [place] Work Phone: TSH Qn 2.59 m[IU]/L See Below [facility] Work Phone: Comment on above: Reference Range: 0.4 4 - 3.98 TSH testing is performed using different testing methodology at [facility] than at other [facility]. Direct result comparisons should only be made within the same method. Urea nitrogen [Mass/Vol] 15 mg/dL 6 - 23 [facility] Work Phone: Laboratory - Hematology and Cell countson 08-01-2021 Erythrocyte distribution width (RBC) [Ratio] 13.2 % See Below [facility] Work Phone: Comment on above: Reference Range: 11. 5 - 14.5 Hematocrit (Bld) [Volume fraction] 46.7 % See Below [facility] Work Phone: Comment on above: Reference Range: 41. 0 - 52.0 Hemoglobin (Bld) [Mass/Vol] 14.8 g/dL See Below [facility] Work Phone: Comment on above: Reference Range: 13. 5 - 17.5 MCHC (RBC) [Mass/Vol] 31.7 g/dL below low threshold See Below [facility] Work Phone: Comment on above: Reference Range: 32. 0 - 36.0 MCV (RBC) [Entitic vol] 95 fL 80 - 100 [facility] Work Phone: Platelets (Bld) [#/Vol] 218 10*3/uL 150 - 450 [facility] Work Phone: RBC (Bld) [#/Vol] 4.91 {x10E12/L} See Below [facility] Work Phone: Comment on above: Reference Range: 4.5 0 - 5.90 WBC (Bld) [#/Vol] 12.0 10*3/uL above high threshold 4.4 - 11.3 [facility] Work Phone: Citrus Level, Serumon 08-01 Citrus [Moles/Vol] 0.73 mmol/L See Below [facility] Work Phone: Comment on above: Reference Range: 0.6 0 - 1.20 No Panel Informationon 08-01 >60 >60 [facility] Work Phone: Comment on above: CALCULATIONS OF JOUSÉ MATED GFR ARE PERFORMED USING THE MDRD STUDY EQUATION FOR THE IDMS-TRACEABLE CREATININE METHODS. CLIN CHEM 2007;53:766-72 Office Visit (Internal Medic ine)on 08-01-2021 Follow-up visit Diagnoses/Problems Assessed Bipolar disorder, mixed (296.60) (F31.60) Polyuria (788.42) (R35.8) Polydipsia (783.5) (R63.1) Orders Bipolar disorder, mixed Citrus Level, Serum; Status:Active; Requested for:[id number]; Perform:Lab Services - Lab To Draw (Blood Test); Due:[id number];Ordered; For:Bipolar disorder, mixed; Ordered By:Fuad Billingsley; TSH WITH REFLEX TO FREE T4 IF ABNORMAL; Status:Active; Requested for:[id number]; Perform:Lab Services - Lab To Draw (Blood Test); Due:[id number];Ordered; For:Bipolar disorder, mixed; Ordered By:Fuad Billingsley; Lumbar radiculopathy Stop: predniSONE 20 MG Oral Tablet Rx By: Fuad Billingsley; Dispense: 5 Days ; #:10 Tablet; Refill: 0;For: Lumbar radiculopathy; MARINA = N; Sent To: [facility] [address] Polydipsia Complete Blood Count; Status:Active; Requested for:[id number]; Perform:Lab Services - Lab To Draw (Blood Test); Due:[id number];Ordered; For:Polydipsia; Ordered By:Fuad Billingsley; Comprehensive Metabolic Panel; Status:Active; Requested for:[id number]; Perform:Lab Services - Lab To Draw (Blood Test); Due:[id number];Ordered; For:Polydipsia; Ordered By:Fuad Billingsley; Hemoglobin A1C; Status:Active; Requested for:[id number]; Perform:Lab Services - Lab To Draw (Blood Test); Due:[id number];Ordered; For:Polydipsia; Ordered By:Fuad Billingsley; IO UA (nonautomated w/o microscopy); Status:Active - Perform Order; Requested for:[id number]; Perform:In Office; Due:[id number];Ordered; For:Polydipsia; Ordered By:Fuad Billingsley; Patient Discussion/Summary TRY TO CUT BACK ON THE FLUID 4 HOURS BEFORE BEDTIME WILL CHECK LABS TODAY COME BACK IN 1 YEAR Provider Impressions #Polyuria, polydipsia -Check UA, A1c, TSH, lithium level #Bipolar -follows with psychiatry, cont current meds Chief Complaint 6 mo f/u. History of Present Illness Reports polyuria and polydipsia for several weeks, concerned he has diabetes. Urinates 2-3x nightly. No hesitancy, slow stream, urgency, dysuria or hematuria. Continues to take lithium for Bipolar is , baby due in November Active Problems Problems Bipolar disorder, mixed (296.60) (F31.60) Class 2 severe obesity due to excess calories with serious comorbidity and body mass index (BMI) of 35.0 to 35.9 in adult (278.01,V85.35) (E66.01,Z68.35) Esophagitis, reflux (530.11) (K21.00) IBS (irritable bowel syndrome) (564.1) (K58.9) Lumbar radiculopathy (724.4) (M54.16) Need for influenza vaccination (V04.81) (Z23) Surgical History Problems History of Cholecystectomy laparoscopic History of Knee surgery Family History Mother Family history of essential hypertension (V17.49) (Z82.49) Family history of malignant neoplasm of breast (V16.3) (Z80.3) Father Family history of essential hypertension (V17.49) (Z82.49) Family history of malignant neoplasm of colon (V16.0) (Z80.0) Social History Problems Currently works full-time Former smoker (V15.82) (Z87.891) No illicit drug use Occasional alcohol use Allergies Medication morphine Recorded By: Jessica Fajardo; 09/21/2020 2:17:05 PM Current Meds Medication NameInstruction Dicyclomine HCl - 20 MG Oral TabletTAKE 1 TABLET 1-3 TIMES A DAY WITH MEALS NEEDED Citrus Carbonate 150 MG Oral Capsule predniSONE 20 MG Oral TabletTAKE 2 TABLETS DAILY. QUEtiapine Fumarate 100 MG Oral TabletTake 1 tablet twice daily Topamax 50 MG Oral TabletTAKE 1 TABLET DAILY. Vitals Vital Signs Recorded: 01Aug2021 03:07PM Tjaqszkmdza84 F [id number] Fmygvzvkg58 Height5 ft 7.75 in Enpuxp131 lb BMI Jrzzdgmaaw79.48 kg/m2 BSA Calculated2.5 Tobacco Useb) No Fall Screeningc) Not medically indicated O2 Vpmepnznac91 Physical Exam Cons: NAD, well-appearing Card: RRR no m/r/g Pulm: CTAB Abd: ND, soft, no TTP Ext: No edema Psych: appropriate mood and affect Neuro: AOx3, no deficits Signatures Electronically signed by : Fuad Billingsley DO; Aug 01 2021 3:24PM EST (Author) Normal [facility] Tobacco Screening.on 021 Fall risk assessment c) Not medically indicated -[facility] [employer] Work Phone: Tobacco use status [facility] b) No -[place] [employer] Work Phone: Provider Note - ED v2on 03-05 Provider Note - ED v2 Provider Note - ED v2: Chart Review: ED NOTES ED NOTES: History: This is a 30-year-old male presenting from home with a chief complaint of eye pain left side after his son accidentally poked him in the eye last night. Patient states he is been using some saline drops which are not working. He has 7 out of 10 pain and some blurred vision in that eye. He cannot open his eye fully. Denies any other trauma symptoms or complaints at this time. Past Medical History Including but not limited to irritable bowel syndrome Social Hx: denies smoking, alcohol, or street drugs. Family Hx: denies any pertinent family history. ROS: Review of systems is otherwise negative unless stated above or in history of present illness. Physical Exam Appearance: Alert, oriented , cooperative, in no acute distress. Well nourished & well hydrated. Skin: Intact, dry skin, no lesions, rash, petechiae or purpura. Eyes: PERRLA, EOMs intact, conjunctive left side is erythematous. ENT: Hearing grossly intact. External auditory canals patent, tympanic membranes intact with visible landmarks. Nares patent, mucus membranes moist. Dentition without lesions. Pharynx clear, uvula midline. Neck: Supple, without meningismus. Thyroid not palpable. Trachea at midline. No lymphadenopathy. Pulmonary: Clear bilaterally with good chest wall excursion. No rales, rhonchi or wheezing. No accessory muscle use or stridor. Cardiac: Normal S1, S2 without murmur, rub, gallop or extrasystole. No JVD, Carotids without bruits. Abdomen: Soft, nontender, active bowel sounds. No palpable organomegaly. No rebound or guarding. No CVA tenderness. Genitourinary: Exam deferred. Musculoskeletal: Full range of motion. no pain, edema, or deformity. Pulses full and equal. No cyanosis, clubbing, or edema. Neurological: Cranial nerves II through XII are grossly intact, finger-nose touch is normal, normal sensation, no weakness, no focal findings identified. Psychiatric: Appropriate mood and affect. Medical Decision Making: The left eye was instilled with tetracaine and fluorescein. There is a large corneal abrasion to the 12 o'clock position just over the iris. He will be given Acular and TobraDex with very close ophthalmology follow-up in 2 days. HISTORY OF PRESENTING ILLNESS MARIKA is a 30 year old Male and was seen by me at 23-Mar-2021 07:50 for a chief complaint of eye pain traumatic (Patient son poked him in the eye last night and the drops he has used were not working)(1). Triage Information: Most recent Vital Sign Value Date Temp (F): 98 03-23-2021 07:47 Temp (C): 36.7 03-23-2021 07:47 Heart Rate (beats/min): 89 03-23-2021 07:47 Respirations (breaths/min): 18 03-23-2021 07:47 SpO2 (%): 98 03-23-2021 07:47 BP Systolic (mm Hg): 142 03-23-2021 07:47 BP Diastolic (mm Hg): 84 03-23-2021 07:47 PAST MEDICAL HISTORY ATTESTATION: I have reviewed and confirmed nurse's/medic's notes for patient's medications, allergies, and medical, surgical, family and social history ALLERGIES/INTOLERANCES: Allergy Allergen: morphine Type: Drug Reaction: Other (Mild) HEALTH HISTORY: No documented data. OUTPATIENT MEDICATIONS: Home Medications Review Status for Reconciliation: Not Done Med Status: Patient Currently Takes Medications Drug Name: lithium 450 mg oral tablet, extended release Instructions: orally 3 times a day Drug Name: Topamax 50 mg oral tablet Instructions: orally once a day Drug Name: Acular 0.5% ophthalmic solution Instructions: 1 drop(s) in each affected eye 4 times a day SIGNIFICANT EVENTS: Past Medical History Description:Irritable bowel syndrome CLINICAL IMPRESSION Diagnosis/Annotation: ED Dx Name:Abrasion of left cornea, initial encounter Code:S05.02XA Disposition: discharged ATTESTATION CRITICAL CARE TIME Is this a critically ill patient: no Electronic Signatures: Angela Allen () (Signed 23-Mar-2021 08:23) Authored: ED Notes, HPI, PMH, Clinical Impression, Attestation, Chart Review, Scores Last Updated: 23-Mar-2021 08:23 by Angela Allen () References: 1. Data Referenced From Triage - ED 23-Mar-2021 07:47 Normal [facility] Risk Screen - Adult Emergenc yon 03-23-2021 Risk Screen - Adult Emergency Preferred Language: Preferred Language: Preferred Language for Discussing Health Care (patient/designee)Korean Advanced Directives: Advance Directive/DNRno Family Violence Adult: Abuse Screen: Are you or have you been threatened or abused physically, emotionally, or sexually by anyoneno Learning Assessment (Patient): Learning Assessment (Patient): Patient is Able to be Assessed for Learningno Reason Unable to Assessed patient Learning Assessment (Other Learner): Learning Assessment (Other Learner): Other learner availableno Pressure Injury/TB/Substance: Pressure Injury: Do you have a coughno Substance Use Current or Former Historynever: Cigarette/Tobacco, e-Cigarette/Vaping YES: Alcohol, Street Drugs Alcohol Usehistory of abuse Drug Usehistory of abuse Admission Risk Screen: Significant IndicatorsComplete CAGE: CAGE: Is this an injured patient at a Trauma Center ([facility]/[place]/ [place]): no Electronic Signatures: Stacy Vivas (RN) (Signed 23-Mar-2021 07:51) Authored: Preferred Language, Advanced Directives, Family Violence Adult, Learning Assessment (Patient), Learning Assessment (Other Learner), Pressure Injury/TB/Substance, Pressure Injury, CAGE Last Updated: 23-Mar-2021 07:51 by Stacy Vivas (RN) Normal [facility] Triage - EDon 03-23-2021 Triage - ED Chart Review: PRIMARY ASSESSMENT MARIKA LOZOYA's primary assessment is Within Defined Limits. The airway is open and patent. Breathing spontaneous and unlabored with clear breath sounds bilaterally. Circulation is normal with good peripheral pulses. Skin is warm and dry and color is normal for race. ARRIVAL INFORMATION Means of Arrival: Ambulatory Mode of Arrival: private vehicle Arrival From: home Accompanied By: self Language: Spoken Language Preferred: Korean Reading Language Preferred: Korean Groundskeeper Requested: no blocking machine tender was requested MDRO: History of MDRO: no Present on Arrival: Device Present on Arrival to ED: no Pressure Ulcer Present on Arrival to ED: (not assessed) CHIEF COMPLAINT MARIKA LOZOYA is a Male patient with a chief complaint of eye pain traumatic (Patient son poked him in the eye last night and the drops he has used were not working). Triage Date/Time: 23-Mar-2021 07:47 NATALIE: 4 Vital Signs: Temperature: 98.0F ( 36.7C) Blood Pressure: 142/84 Mean: Heart Rate: 89 Respiratory Rate: 18 Pulse Oximetry: 98% on room air, no respiratory support. Height: 5 feet 10 inches. 177.8 CM Weight: 326.7 pounds. Calculated 148.2 kg. Calculated BMI (kg/m2): 46.879 Calculated BSA (m2) 2.71 Joseline Coma Scale: Best Eye Response: (E4) spontaneous Best Motor Response: (M6) obeys commands Best Verbal Response: (V5) oriented Joseline Score: 15 Allergies: yes Patient has homicidal thoughts: no Risk Screens Suicide Risk Screen In the Past Month: Have you wished you were or wished you could go to sleep and not wake up no In the Past Month: Have you had any actual thoughts of killing yourself no In Your Lifetime: Have you ever done anything, started to do anything, or prepared to do anything to end your life no Allred Fall Scale Screening Has the patient fallen before (or is the patient in the ED as a result of a fall) has not had a fall Does the patient have an impaired gait does not have impaired gait Is the patient cognitively impaired not cognitively impaired Interventions: Allred Fall Interventions: LOW INTERVENTIONS: *patient oriented to surroundings and call system, * patient/family falls education completed and documented, *patients fall status communicated during bedside handoff, *whiteboard updated, *mode of toileting discussed with patient, *bed in low position with brakes locked, *call light in reach, * non-skid footwear TRAVEL HISTORY Travel History Coronavirus Screening: no exposure or symptoms PAIN Pain Scale Used: ALLEN Past Medical History: Past Medical History Reviewedno Electronic Signatures: Stacy Vivas (RN) (Signed 23-Mar-2021 07:50) Authored: Quick Triage, Risk Screens, Pain, Arrival, ABCD, Chart Review, Scores, Past Medical History Last Updated: 23-Mar-2021 07:50 by Stacy Vivas (RN) [facility] Nutrition-[place] 03-22-2021 Nutrition-Adult Medical Diagnosis Assessed Class 2 severe obesity due to excess calories with serious comorbidity and body mass index (BMI) of 35.0 to 35.9 in adult (278.01,V85.35) (E66.01,Z68.35) IBS (irritable bowel syndrome) (564.1) (K58.9) Nutrition Intervention Nutrition Interventions: Food/Nutrient Delivery: Anti-inflammatory diet. Consistent carbohydrate diet. Decreased energy diet. Increased fiber diet. Low saturated fat diet. Nutrition Diagnosis Diagnosis 1: Overweight/obesity related to excessive energy intake as evidenced by BMI well above normative standards . Reason For Visit Reason For Visit: Patient is here for initial nutrition assessment, date: 03/22/2021 and nutrition education. Referring provider is Fuad Billingsley MD , effective date is 02/02/2021 and expiration date is 02/02/2022. History of Present Illness Food/Nutrition related history: Intake: >/= 75% had bariatric surgery years ago - he thinks she had bypass surgery Beverages: water (mostly) - when he goes out - he drinks caffeine - free andreea mist Breakfast: 8:15- 8:20 am - Frosted cherrios + whole milk 9am- 12 ounced iced coffee - Herbalife (whey protein shake) Lunch: 12pm: [employer] (ham and cheese on wheat bread + honey mustard + baked chips + crystal lights 3:30 - Crackers (buttered townshouse) + pepper con cheese - 5-6 ounces Dinner: 5pm hot dog (1) + ketchup + mustard + one hamburger + mac and cheese + fries + water . Food Allergy/Intolerance: Patient has no food allergies. Patient has no food intolerance. Appetite: Good GI Symptoms: none . does have IBS - has issues when he eats spicy foods. Oral Problems: denies Dentition: own Mobility: Physical Activity: can do some some exercise - [employer]. Dietary Supplements: Denies Intuitive Eating: hunger felt, satiety felt, no binging, cravings and has energy. Food Preparation Cooking: patient and spouse/significant other. Food Preparation Grocery Shopping: patient and spouse/significant other. Food Preparation Dining Out: More than 3 times a week. Additional Comments: erlin Tovar - brings home food. Active Problems Problems Bipolar disorder, mixed (296.60) (F31.60) Class 2 severe obesity due to excess calories with serious comorbidity and body mass index (BMI) of 35.0 to 35.9 in adult (278.01,V85.35) (E66.01,Z68.35) Esophagitis, reflux (530.11) (K21.00) IBS (irritable bowel syndrome) (564.1) (K58.9) Lumbar radiculopathy (724.4) (M54.16) Need for influenza vaccination (V04.81) (Z23) Surgical History Problems History of Cholecystectomy laparoscopic History of Knee surgery Family History Mother Family history of essential hypertension (V17.49) (Z82.49) Family history of malignant neoplasm of breast (V16.3) (Z80.3) Father Family history of essential hypertension (V17.49) (Z82.49) Family history of malignant neoplasm of colon (V16.0) (Z80.0) Social History Problems Currently works full-time Former smoker (V15.82) (Z87.891) No illicit drug use Occasional alcohol use Allergies Medication morphine Recorded By: Jessica Fajardo; 09/21/2020 2:17:05 PM Current Meds Medication NameInstruction Dicyclomine HCl - 20 MG Oral TabletTAKE 1 TABLET 1-3 TIMES A DAY WITH MEALS NEEDED Citrus Carbonate 150 MG Oral Capsule predniSONE 20 MG Oral TabletTAKE 2 TABLETS DAILY. Topamax 50 MG Oral TabletTAKE 1 TABLET DAILY. Vitals Vital Signs Printed in Appendix #1 below. Results/Data [facility] [id number] [id number] Height5 ft 8 in5 ft 8 in5 ft 8 in5 ft 9 in Xutanp552 lb 306 lb 285 lb 280 lb 2 oz BMI Pthtsrrddd71.2946.5343.33 41.37 Rfyskhwoya37.3 g/dL16.9 g/dL Axwvcexmzu38.4 %51.1 % Cbjpldu84 mg/dL87 mg/dL Tvkqzg697 mmol/L140 mmol/L Potassium4.1 mmol/L3.4 mmol/L Blood Urea Nitrogen (BUN)13 mg/dL15 mg/dL Creatinine0.86 mg/dL0.94 mg/dL Calcium9.8 mg/dL9.8 mg/dL Albumin4.3 g/dL5.0 g/dL Total Bilirubin0.5 mg/dL0.8 mg/dL Complete Blood Count + Pnggalxfnece47Smb7506 05:25PMFuad Billingsley [Aug 12, 2020 7:01PM Fuad Blilingsley] discussed with patient, f/u 6 mo Test NameResultFlagReference White Blood Cell Count12.0 x10E9/LH4.4 - 11.3 Red Blood Cell Count5.46 x10E12/LSee Below Reference Range: 4.50 - 5.90 Nucleated Erythrocyte Count0.0 /100 WBC0.0-0.0 Hgosofolvm55.3 g/dLSee Below Reference Range: 13.5 - 17.5 HCT49.4 %See Below Reference Range: 41.0 - 52.0 MCV90 fL80 - 100 MCHC33.0 g/dLSee Below Reference Range: 32.0 - 36.0 Platelet Kyplc633 x10E9/L150 - 450 RDW-CV12.5 %See Below Reference Range: 11.5 - 14.5 Neutrophil %54.6 %See Below Reference Range: 40.0 - 80.0 % Automated Immature Gran0.4 %0.0 - 0.9 Immature Granulocyte Count (IG) includes promyelocytes, myelocytes and metamyelocytes but does not include bands. Percent differential counts (%) should be interpreted in the context of the absolute cell counts (cells/L). Lymphocyte %37.8 %See Below Reference Range: 13.0 - (more content not included)... [facility] Office Visit (Internal Medic ine)on 01-27-2021 Follow-up visit Diagnoses/Problems Assessed Lumbar radiculopathy (724.4) (M54.16) Class 2 severe obesity due to excess calories with serious comorbidity and body mass index (BMI) of 35.0 to 35.9 in adult (278.01,V85.35) (E66.01,Z68.35) Orders Class 2 severe obesity due to excess calories with serious comorbidity and body mass index (BMI) of 35.0 to 35.9 in adult Comprehensive Weight Loss Referral (Diet/exercise/meds with [facility]. Surgical counseling if needed, gateway to all programs) Evaluation and Treatment Evaluate AND Treat Status: Hold For - Scheduling Requested for: 27Jan2021 Ordered;For: Class 2 severe obesity due to excess calories with serious comorbidity and body mass index (BMI) of 35.0 to 35.9 in adult; Ordered By: Fuad Billingsley Performed: Due: 27Apr2021 Lumbar radiculopathy Start: predniSONE 20 MG Oral Tablet; TAKE 2 TABLETS DAILY Rx By: Fuad Billingsley; Dispense: 5 Days ; #:10 Tablet; Refill: 0;For: Lumbar radiculopathy; MARINA = N; Verified Transmission to [facility]; Last Updated By: Mike Pagan; 01/27/2021 3:52:39 PM Unlinked Stop: Levothyroxine Sodium 50 MCG Oral Tablet Rx By: TORO; Dispense: 30 Days ; #:30; Refill: 0; MARINA = N; Record; Last Updated By: Fuad Billingsley; 01/27/2021 3:58:54 PM Patient Discussion/Summary TAKE PREDNISONE FOR BACK PAIN KEEP DONG HOME BACK/CORE EXERCISES F/U WITH [facility] LOSS CLINIC COME BACK IN 6 MONTHS Provider Impressions #Lumbar radiculopathy -Prednisone x 5 days. Offered P.T. but patient would like to continue his own home exercises. #Morbid obesity -Refer to weight loss clinic RTC 6 mo Chief Complaint 6 mo f/u. Pt. c/o pain in the middle of his back. 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 He was wrestling and heard a popping sound in his back. At that time he did not see anyone for it. He takes IBP to help. History of Present Illness Low back pain Used to do amateur wresting and felt a pop about 12 years ago Pain is sharp and freeman Pain when he stands, sits and lifts objects Has radicular pain from low back to left knee Tried P.T. 10 years ago which helped at that time. Is doing exercises at home 12 point ROS negative unless otherwise noted in HPI Active Problems Problems Bipolar disorder, mixed (296.60) (F31.60) Esophagitis, reflux (530.11) (K21.00) IBS (irritable bowel syndrome) (564.1) (K58.9) Need for influenza vaccination (V04.81) (Z23) Surgical History Problems History of Cholecystectomy laparoscopic History of Knee surgery Family History Mother Family history of essential hypertension (V17.49) (Z82.49) Family history of malignant neoplasm of breast (V16.3) (Z80.3) Father Family history of essential hypertension (V17.49) (Z82.49) Family history of malignant neoplasm of colon (V16.0) (Z80.0) Social History Problems Currently works full-time Former smoker (V15.82) (Z87.891) No illicit drug use Occasional alcohol use Allergies Medication morphine Recorded By: Jessica Fajardo; 09/21/2020 2:17:05 PM Current Meds Medication NameInstruction Dicyclomine HCl - 20 MG Oral TabletTAKE 1 TABLET 1-3 TIMES A DAY WITH MEALS NEEDED Levothyroxine Sodium 50 MCG Oral TabletTAKE 1 TABLET BY MOUTH IN THE MORNING Citrus Carbonate 150 MG Oral Capsule Topamax 50 MG Oral TabletTAKE 1 TABLET DAILY. Vitals Vital Signs Recorded: 45Dbj6134 03:17PM Wibtqcwyriv02 F Heart Rate91 Kuvtvdzh559 Jnxlrxlxx41 Height5 ft 8 in Mtbykc085 lb BMI Ptgafgaiii96.29 BSA Calculated2.47 O2 Rirhdhptyw20 Physical Exam Cons: NAD, well-appearing Card: RRR no m/r/g Pulm: CTAB MSK: pain b/l paraspinal muscles, +strait leg test on left, negative on right Signatures Electronically signed by : Fuad Billingsley DO; Jan 27 2021 4:01PM EST (Author) [facility] Established Visit (Gastroent erology)on 01-18-2021 Established Visit (Gastroenterology) Diagnoses/Problems Assessed Esophagitis, reflux (530.11) (K21.00) IBS (irritable bowel syndrome) (564.1) (K58.9) Orders Esophagitis, reflux Start: Dicyclomine HCl - 20 MG Oral Tablet; TAKE 1 TABLET 1-3 TIMES A DAY WITH MEALS NEEDED Rx By: Malorie Ho; Dispense: 30 Days ; #:90 Tablet; Refill: 3; For: Esophagitis, reflux; MARINA = N; [facility]; Last Updated By: [employer]; 01/18/2021 3:02:03 PM Patient Discussion/Summary Start trial of Bentyl for cramping, diarrhea as needed, can also take premeal Can stop Omeprazole, however if symptoms of heartburn return can call our office and we will refill it for you. Provider Impressions 30 year old male here for follow up, EGD showed esophagitis, GERD improved on PPI. Also with IBS-D. Start trial of Bentyl for cramping, diarrhea as needed, can also take premeal Can stop Omeprazole, however if symptoms of heartburn/reflux return can call our office and we will refill it for you Follow up as needed Chief Complaint Follow up IBS. History of Present [age]wjjenl12 year old male who comes in for follow up. Had EGD which showed esophagitis, started on PPI and Colonoscopy was negative. Tells me that since going on PPI it has helped his heartburn, he has also significantly cut back on the spicy foods that he was eating. Notes that he does have occasional diarrhea, bloating and lower abdominal cramping when he eats certain spicy foods. Diarrhea resolves in a day. Overall, tells me he is feeling much better. Upper Gastrointestinal: eructation, vomiting, but no abdominal pain, no difficulty swallowing, no early satiety, no heartburn, no jaundiced, no nausea, no pain while swallowing, no regurgitation. Lower Gastrointestinal: bloating, diarrhea, but no abdominal swelling, no constipation, no fecal incontinence, no bowel urgency, no steatorrhea. Gastrointestinal Bleeding: no bright red blood per rectum, no hematemesis, no maroon stools, no melena/black stool, not vomiting 'coffee grounds' material. Symptom History: Modifying Factors: Associated Symptoms: Review of Systems Constitutional: recent weight gain, but no recent weight loss. ENT: no nosebleeds and no sore throat. Cardiovascular: chest pain. Respiratory: no cough. Musculoskeletal: joint stiffness. Integumentary: no rashes. Neurological: headache, but no confusion. Active Problems Problems Bipolar disorder, mixed (296.60) (F31.60) Esophagitis, reflux (530.11) (K21.00) Need for influenza vaccination (V04.81) (Z23) Surgical History Problems History of Cholecystectomy laparoscopic History of Knee surgery Family History Mother Family history of essential hypertension (V17.49) (Z82.49) Family history of malignant neoplasm of breast (V16.3) (Z80.3) Father Family history of essential hypertension (V17.49) (Z82.49) Family history of malignant neoplasm of colon (V16.0) (Z80.0) Social History Problems Currently works full-time Former smoker (V15.82) (Z87.891) No illicit drug use Occasional alcohol use Allergies Medication morphine Recorded By: Jessica Fajardo; 09/21/2020 2:17:05 PM Current Meds Medication NameInstruction Levothyroxine Sodium 50 MCG Oral TabletTAKE 1 TABLET BY MOUTH IN THE MORNING Citrus Carbonate 150 MG Oral Capsule Omeprazole 40 MG Oral Capsule Delayed ReleaseTAKE 1 CAPSULE Daily Topamax 50 MG Oral TabletTAKE 1 TABLET DAILY. Vitals Vital Signs Recorded: 18Jan2021 02:39PM Height5 ft 8 in Kgxkbr171 lb BMI Prprjuxwtg70.53 BSA Calculated2.45 Physical Exam Constitutional: NAD, alert and awake Eyes: anicteric ENMT: MMM Respiratory/Thorax: easy and nonlabored Gastrointestinal: Soft, NT, ND, no ascites, no asterixis Musculoskeletal: MAEx4, Extremities: no edema Neurological: aaox3 Psychological: mood appropriate Skin: intact-no jaundice Results/Data Surgical [id number] 11:Rita Zavala NameResultFlagReference Case Surgical Pathology(Report) Name MARIKA LOZOYA Pathologist: SAÚL CALLAHAN MD Date of Procedure: 10/11/2020 Date Received: 10/11/2020 Date Reported 10/13/2020 Submitting Physician: RITA CARRILLO DO Location: [facility] Surg Copy To/Referring/Attending: FUAD BILLINGSLEY, Other External # FINAL DIAGNOSIS A. DUODENUM RULE OUT CELIAC: -- DUODENAL MUCOSA WITHIN NORMAL LIMITS. B. STOMACH RULE OUT H PYLORI: -- GASTRIC ANTRAL MUCOSA WITHIN NORMAL LIMITS. -- GASTRIC CORPUS MUCOSA WITHIN NORMAL LIMITS. -- NEGATIVE FOR HELICOBACTER PYLORI ORGANISMS BY ISABLE STAIN. C. TERMINAL ILIUM RULE OUT CROHN'S: -- TERMINAL ILEAL MUCOSA WITHIN NORMAL LIMITS. D. RANDOM COLON RULE OUT MICROSCOPIC COLITIS RULE OUT IBD: -- COLONIC MUCOSA WITHIN NORMAL LIMITS. Electronically Signed Out By SAÚL CALLAHAN MD/PETAR By the signature on this report, the individual or group listed as making the Final Interpretation/Diagnosis certifies that they have reviewed (more content not included)... [facility] Name MARIKA LOZOYA Pathologist: SAÚL CALLAHAN MD Date of Procedure: 10/11/2020 Date Received: 10/11/2020 Date Reported 10/13/2020 Submitting Physician: RITA CARRILLO DO Location: [facility] Copy To/Referring/Attending: FUAD BILLINGSLEY, Other External # FINAL DIAGNOSIS A. DUODENUM RULE OUT CELIAC: -- DUODENAL MUCOSA WITHIN NORMAL LIMITS. B. STOMACH RULE OUT H PYLORI: -- GASTRIC ANTRAL MUCOSA WITHIN NORMAL LIMITS. -- GASTRIC CORPUS MUCOSA WITHIN NORMAL LIMITS. -- NEGATIVE FOR HELICOBACTER PYLORI ORGANISMS BY H AND E STAIN. C. TERMINAL ILIUM RULE OUT CROHN'S: -- TERMINAL ILEAL MUCOSA WITHIN NORMAL LIMITS. D. RANDOM COLON RULE OUT MICROSCOPIC COLITIS RULE OUT IBD: -- COLONIC MUCOSA WITHIN NORMAL LIMITS. Electronically Signed Out By SAÚL CALLAHAN MD/PETAR By the signature on this report, the individual or group listed as making the Final Interpretation/Diagnosis certifies that they have reviewed this case. Clinical History: BRIGHT RED BLOOD PER RECTUM Specimens Submitted As: A: DUODENUM RULE OUT CELIAC B: STOMACH RULE OUT H PYLORI C: TERMINAL ILIUM RULE OUT CROHN'S D: RANDOM COLON RULE OUT MICROSCOPIC COLITIS RULE OUT IBD Gross Description: A: Received in formalin, labeled with the patient's name and hospital number and A, are multiple fragments of daniels, soft tissue aggregating to 0.8 x 0.2 x 0.1 cm. The specimen is submitted in toto in one cassette. SBS B: Received in formalin, labeled with the patient's name and hospital number and B, are multiple fragments of daniels, soft tissue aggregating to 1.0 x 0.2 x 0.1 cm. The specimen is submitted in toto in one cassette. SBS C: Received in formalin, labeled with the patient's name and hospital number and C, are multiple fragments of daniels, soft tissue aggregating to 1.0 x 0.3 x 0.1 cm. The specimen is submitted in toto in one cassette. SBS D: Received in formalin, labeled with the patient's name and hospital number and D, are multiple fragments of daniels, soft tissue aggregating to 2.1 x 0.3 x 0.2 cm. The specimen is submitted in toto in one cassette. SBS Gross dissection performed at: [facility] Department of Pathology [address] [place] [address] ssn/10/11/2020 [facility] Department of Pathology [id number] [place] [address] Comment on above: Performed By: #### G SP ####[facility] [id number] [place] [address] Patient Profile - Preop v2on 10-11-2020 Patient Profile - Preop v2 Profile: Initial Info: How to be AddressedMike Spoken Language PreferredEnglish (1) Are you currently using the Personal Electronic Health Record or DDVTECHno Are you interested in learning more about [employer] for the management of your healthnot at this time Stated Reason for AdmissionEGD , Colonoscopy Primary Contact Name and [phone] Patient Belongingsremains with patient Patient Belongings Remaining with Patientclothing Medications Brought to Hospitalno General Health: Patient or Family Member Reaction to Anesthesiano previous reaction Health Mgmt: Symptoms/Conditions Managed at [facility] Barriers to Managing Healthnone Relationship/Environ: Resource/Environmental Concernsnone Substance: Current or Former Substance Use never: Cigarette/Tobacco(2), e-Cigarette/Vaping(2), Alcohol(2) Risk Screens: COVID-19 Screening Completedno exposure or symptoms Advance Directive/DNRno Advance Directive Information Givenpatient/family declined During the past month, have you often been bothered by feeling down, depressed or hopelessno During the past month, have you often had little interest or pleasure in doing thingsno Have you had any thoughts of harming yourselfno Have you had any thoughts of harming anyone elseno Are you or have you been threatened or abused physically,emotionally or sexually abused by anyoneno Do you feel UNSAFE going back to the place you are livingno Patient is Able to be Assessed for Learningyes Factors Influencing Readiness to Learninterest in learning Factors that Impact Ability to Learnnone Devices/Methods Used to Communicatenone Learning Preferencesindividual instruction Cultural Considerationsnone Developmental Considerationsnone Tenriism Considerationsnone Other learner availableno Falls RiskPatient location auto qualifies him/her for HIGH RISK. Are there any cultural, spiritual, adventism practices/values/needs that are important for us to knowno Pain Scalenumerical 0-10 Pain Scale Educationteaching provided Current Pain Level0 = None Acceptable Pain Level8 = Severe Chronic Painno Information Review: Allergies, Home Meds and Significant Events have been Reviewed and Verified with Patient/Familyyes Allergy, Intolerance, Adverse Event: Allergies: morphine: Drug, Other (Mild), Active Electronic Signatures: Terry Thompson (N MGR) (Signed 11-Oct-2020 10:50) Authored: Initial Info, General Health, Health Mgmt, Relationship/Environ, Substance, Risk Screens, Additional Information Last Updated: 11-Oct-2020 10:50 by Terry Thompson (N MGR) References: 1. Data Referenced From Triage - ED 20-May-2020 17:54 2. Data Referenced From Provider Note - ED v2 20-May-2020 18:36 Normal [facility] Preop Checkliston 10-11-2020 Preop Checklist Preop Checklist: Preop Checklist: Arrival [id number] Arrival Time10:51 Procedure TypeEGD, Colonoscopy Temperature C36 degrees C Temperature F96.8 degrees F Heart Rate70 beats per minute Respiratory Rate16 breath per minute Blood Pressure Wdvzyzrc936 mm/Hg Blood Pressure Ybhlqnaek95 mm/Hg NPO [id number] 22:00 ID Band Onyes Allergy Bandyes Consent Signedpending H&P Completepending Anesthesia Assessment Completedpending EKG Performednot ordered Chest X-Ray Performednot ordered HCG Urine TestN/A Chlorhexadine Bath Givennot applicable Nasal Antiseptic Appliednot applicable Hair Washednot applicable Soap and water bath with hair shampoo the night before surgerynot applicable Hat placed on infant prior to transportnot applicable SCD's Appliednot applicable ETHAN Hose Appliednot ordered Denturesnot applicable Prostheticsnot applicable Hearing Aidsnot applicable Valuables Securedplaced in locker Jewelry taped Glasses / Contactsnot applicable Bowel Prepyes TypeMiralax Bowel Prep Completed as Instructedyes Stools Clearyes Cardiovascular Assessment: Apicalregular Radial Pulsespalpable Extremitieswarm Respiratory Assessment: Respirationsunlabored Air Exchangeequal, good Neurological Assessment: Level of Consciousnessalert, oriented Mobilitymoves all extremities Able to Express Selfyes Age Appropriateyes Emotional Statuscalm Preop Education: Surgical Site Infection Preventionyes Pain Scales and Managementyes Language / Communication: Language / CommunicationEnglish Electronic Signatures: Terry Thompson (N MGR) (Signed 11-Oct-2020 10:55) Authored: Preop Checklist Last Updated: 11-Oct-2020 10:55 by Terry Thompson (N MGR) Normal [facility] CORONAVIRUS 2019, SCREEN ASY MPTOMATICon 10-10-2020 SARS-CoV-2 (COVID-19) RNA HOLLY+probe Ql (Unsp spec) Not detected Normal Not Detected [facility] Comment on above: Result Comment: . This assay is designed to detect SARS-CoV-2 based on replication of specific regions of the RNA from the SARS-CoV-2 virus. A Not Detected result does not preclude 2019-nCoV infection since the adequacy of sample collection and/or low viral burden may result in presence of viral nucleic acids below the clinical sensitivity of this test method. Fact sheet for providers: https://www.fda.gov/media/567207/download Fact sheet for patients: https://www.fda.gov/media/708299/download This test has received FDA Emergency Use Authorization [EUA] and has been verified by [facility] ([facility]). This test is only authorized for the duration of time that circumstances exist to justify the authorization of the emergency use of in vitro diagnostic tests for the detection of SARS-CoV-2 virus and/or diagnosis of COVID-19 infection under section 564(b)(1) of the Act, 21 U.S.C. 360bbb-3(b)(1), unless the authorization is terminated or revoked sooner. [facility] is certified under CLIA-88 as qualified to perform high complexity testing. Testing is performed in the [facility] laboratories located at [address] [place] [address]. Performed By: #### C OVSC #### [address] [place] [address] Covid 19 Resultson 0 SARS-CoV-2 (COVID-19) RNA HOLLY+probe Ql (Unsp spec) NEGATIVE COVID-19 Test Coronaviruses are common world-wide and are the cause of many common colds. SARS-COV2 is a new coronavirus that began circulating worldwide in 2019 so we are calling it COVID-19. It has been estimated that four out of five patients with COVID-19 will recover at home without the need for medical attention. Symptoms of COVID-19 include cough, fever, shortness of breath, loss of taste or smell and other flu-like symptoms including chills, sore muscles, sore throat, and headache. Severe illness is more common in older people and people with other health problems such as high blood pressure, obesity, and immune system problems. If the test is positive, you have COVID-19. You will be contacted by the ordering physicians office and instructed to remain on home isolation, in accordance with CDC guidelines. You may also be contacted by the [facility] to see if any of your close contacts may have been exposed to the virus and need to quarantine. If the test is negative, you likely do not have COVID-19 at this time, but you still may have a different illness that can spread to other people (like Influenza, or the Flu) and could still be at risk for getting COVID-19. We recommend that you stay away from other people to limit the spread of illness until your symptoms are improving and you are fever-free for 24 hours without the use of fever lowering medications such as acetaminophen or ibuprofen. No test is 100% accurate so if you are still concerned you may have COVID-19, talk to your doctor about the need to continue to stay away from others. Medicines Acetaminophen (Tylenol and others) is generally safe. Anti-inflammatory medications, such as Ibuprofen (Advil or Motrin) or Naproxen (Aleve) can also be used. Pxhf-bmc-qsarcih cough and cold medicines can be used according to the instructions on the package. Some raay-nqj-dfvgyal medicines also contain acetaminophen. Make sure you are not taking more than your recommended dose For those not hospitalized, there is no specific treatment available for this illness. Antibiotics do not treat Coronaviruses. Follow-Up Follow up with your doctor by scheduling a virtual visit or consider follow-up at one of our urgent care fever clinics. If you are having difficulty breathing, or are very weak and having difficulty standing, this is a medical emergency. Call 911 or have someone take you to the nearest emergency room immediately. If possible, wear a facemask. Additional guidance from the CDC for patients who tested POSITIVE for COVID-19 How to isolate: Isolate yourself in a specific room at home and limit your contact with others. Use a separate bathroom from other members of the household, when possible. Leave home only to get essential medical care. Do not go to work, school or public areas. Avoid using public transportation, ride-sharing, or taxis. Restrict contact with pets and other animals. If you must care for your pet or be around animals while you are sick, wash your hands before and after your interaction and wear a facemask. Make sure that shared spaces in the home have good airflow, such as by an air conditioner or an opened window, weather permitting. Personal Hygiene Procedures: Wear a face mask when in the same room as other people or pets. If a face mask interferes with your breathing, others should wear a mask when sharing space with you. Frequent hand-washing: wash your hands with soap and water for at least 20 seconds. If soap and water are not available, use alcohol-based hand tenter frame back tender. Avoid touching your eyes, nose, and mouth with unwashed hands. Household Hygiene Procedures: Avoid sharing personal household items such as dishes, glassware, cups, eating utensils, towels or bedding with other people or pets in your home. After use, these items should be washed with soap and hot water. Disinfect all high-touch surfaces every day with antibacterial cleaning solutions such as Lysol wipes, bleach, cleansers, etc. High-touch surfaces include tabletops, doorknobs, bathroom fixtures, toilets, phones, keyboards, tablets and bedside tables. Immediately clean any surfaces that may have blood, poop or body fluids on them, using antibacterial cleaning solutions such as Lysol wipes, bleach, cleansers, etc. If clothing or bedding come into contact with blood, poop or body fluids, they should be washed immediately. Follow the directions on the laundry detergent and clothing labels but hot water is recommended when possible. Stopping home isolation precautions: If possible, consult your doctor before stopping home isolation precautions. According to the CDC, you can discontinue home isolation precautions when you have met both of these criteria: Your fever and respiratory symptoms have been gone for 24 hours without the use of any medicines like ibuprofen (Motrin) (more content not included)... Normal [facility] CORONAVIRUS 2019, SCREEN ASY MPTOMATICon 10-09-2020 Lab Specimen Source Nasal, Nasopharyngeal Normal [facility] Comment on above: Performed By: #### C OVSC #### [facility] [address] [place] [address] Coronavirus 2019 RNA by PCR, Screening Asymptomticon 10-09-2020 EMPLOYED IN HEALTHCARE Unknown [facility] a Work Phone: FIRST COVID NASAL SWAB TEST? Unknown [facility] a Work Phone: ICU? Unknown [facility] Work Phone: Patient was hospitalized because of this condition Unknown [facility] Work Phone: RESIDENT IN CONGREGATE CARE SETTING? Unknown [facility] a Work Phone: SYMPTOMATIC DEFINED BY CDC Unknown [facility] Work Phone: Coronavirus 2019 RNA by PCR, Screening Asymptomtic NOT DETECTED See Below [facility]: Comment on above: SOURCE: Nasal, Nasop haryngealReference Range: Not Detected.This assay is designed to detect SARS-CoV-2 based on replication of specific regions of the RNA from the SARS-CoV-2 virus. A Not Detected result does not preclude 2019-nCoV infection since the adequacy of sample collection and/or low viral burden may result in presence of viral nucleic acids below the clinical sensitivity of this test method. Fact sheet for providers: https://www.fda.gov/media/080651/downloadFact sheet for patients: https://www.fda.gov/media/539489/downloadThis test has received FDA Emergency Use Authorization [EUA] and has been verified by [facility] ([facility]). This test is only authorized for the duration of time that circumstances exist to justify the authorization of the emergency use of in vitro diagnostic tests for the detection of SARS-CoV-2 virus and/or diagnosis of COVID-19 infection under section 564(b)(1) of the Act, 21 U.S.C. 360bbb-3(b)(1), unless the authorization is terminated or revoked sooner. [facility] is certified under CLIA-88 as qualified to perform high complexity testing. Testing is performed in the [facility] laboratories located at [address] [place] [address]. Coronavirus 2019 RNA by PCR, Screening Asymptomtic Unknown [facility] Work Phone: CORONAVIRUS 2019, SCREEN ASY MPTOMATICon 09-28-2020 EMPLOYED IN HEALTHCARE? Unknown Normal [facility] Comment on above: Performed By: #### C OVSC #### [facility] [address] [place] [address] HOSPITALIZED (OR PLANNED TO BE ADMITTED)? Unknown Normal [facility] Comment on above: Performed By: #### C OVSC #### [facility] [address] [place] [address] ICU? Unknown Normal [facility] Comment on above: Performed By: #### C OVSC #### [facility] [address] [place] [address] REQUIRED FOR PROCEDURE/SURGERY? Unknown Normal [facility] Comment on above: Performed By: #### C OVSC #### [facility] [address] [place] [address] RESIDENT IN CONGREGATE CARE SETTING? Unknown Normal [facility] Comment on above: Performed By: #### C OVSC #### [facility] [address] [place] [address] SARS-CoV-2 (COVID-19) Ab IA Ql Unknown Normal [facility] Comment on above: Performed By: #### C OVSC #### [facility] [address] [place] [address] SYMPTOMATIC DEFINED BY CDC? Unknown Normal [facility] Comment on above: Performed By: #### C OVSC #### [facility] [address] EMPLOYEE? Unknown Normal [facility] Comment on above: Performed By: #### C OVSC #### [facility] [address] [place] [address] Initial Visit (Gastroenterol ogy)on 09-21-2020 Initial Visit (Gastroenterology) Diagnoses/Problems Assessed Family history of malignant neoplasm of breast (V16.3) (Z80.3) : Mother Family history of malignant neoplasm of colon (V16.0) (Z80.0) : Father Provider Impressions 30 yo male with bipolar d/o presenting with complaints of longstanding diarrhea, BRBPR, longstanding GERD and significant family hx of CRC in multiple relatives. -EGD and colonoscopy scheduled -Educated on diet, exercise, and lifestyle modifications -Cessation of tobacco, alcohol, and NSAID use -consider PPI if gastritis/esophagitis/PUD found on egd -consider bentyl vs colestipol for diarrhea (? IBS vs bile salt) Chief Complaint New patient here from the ER for BRBPR and IBS. History of Present Gug[age]xez6 year old male pt with history of bipolar disorder here for follow up from ED visit for BRBPR and IBS symptoms. Pt states he went to the ED at the end of Jul. and was told he had hemorrhoids and his rectal bleeding has since resolved. He then tells me of lifelong symptoms of diarrhea/loose stools 7-10 times daily and abdominal pain that have persisted for as long as he can remember. Pt had cholecystectomy in 2017 and says GERD-like sxs developed after. He notes heartburn, acid reflux, and regurgitation from time to time. He takes Tums with temporary relief. He is overweight and tells me about all the greasy and spicy food he eats and how it worsens his BMs. He then follows up with: it doesn't matter what I eat I go all the time even if I drink water. 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 He will take ibuprofen PRN for pain, about twice a week. He tells me colon CA runs on his father's side of the family and is concerned, thinking he should get a scope now. He has never had an EGD. He discusses how he has never been tested for IBS, although I believe he means IBD, and wishes to be tested since he feels there is something wrong. Upper Gastrointestinal: no abdominal pain, no eructation, no difficulty swallowing, no early satiety, no heartburn, no jaundiced, no nausea, no pain while swallowing, no regurgitation, no vomiting. Lower Gastrointestinal: no abdominal swelling, no bloating, no constipation, no diarrhea, no fecal incontinence, no bowel urgency, no steatorrhea. Gastrointestinal Bleeding: bright red blood per rectum, but no hematemesis, no maroon stools, no melena/black stool, not vomiting 'coffee grounds' material. Symptom History: Modifying Factors: Associated Symptoms: Review of Systems Constitutional: recent 5 lb weight gain, but no recent weight loss. Eyes: no eye pain. ENT: no nosebleeds and no sore throat. Cardiovascular: no chest pain. Respiratory: no cough. Musculoskeletal: no joint stiffness. Integumentary: no rashes and no skin wound. Neurological: no headache and no confusion. Psychiatric: no anxiety and no depression. Endocrine: no hot flashes and no muscle weakness. Hematologic/Lymphatic: no tendency for easy bleeding and no tendency for easy bruising. Active Problems Problems Bipolar disorder, mixed (296.60) (F31.60) Need for influenza vaccination (V04.81) (Z23) Surgical History Problems History of Cholecystectomy laparoscopic History of Knee surgery Family History Mother Family history of essential hypertension (V17.49) (Z82.49) Family history of malignant neoplasm of breast (V16.3) (Z80.3) Father Family history of essential hypertension (V17.49) (Z82.49) Family history of malignant neoplasm of colon (V16.0) (Z80.0) Social History Problems Currently works full-time Former smoker (V15.82) (Z87.891) No illicit drug use Occasional alcohol use Allergies Medication morphine Recorded By: Jessica Fajardo; 09/21/2020 2:17:05 PM Current Meds Medication NameInstruction Levothyroxine Sodium 50 MCG Oral TabletTAKE 1 TABLET BY MOUTH IN THE MORNING Citrus Carbonate 150 MG Oral Capsule Topamax 50 MG Oral TabletTAKE 1 TABLET DAILY. Vitals Vital Signs Recorded: 21Sep2020 02:16PM Height5 ft 8 in Ggshfo936 lb BMI Uiyxbzujin89.33 BSA Calculated2.38 Physical Exam Constitutional General appearance: In no acute distress. obese. Eyes Anicteric Sclerae. Conjunctiva and lids: No swelling, erythema or discharge. Neck Supple, no lymphadenopathy. Pulmonary Respiratory effort: No increased work of breathing or signs of respiratory distress. Auscultation of lungs Clear. Cardiovascular Auscultation of heart: RRR without murmur. Examination of extremities for edema: Normal. Abdomen Soft, non-tender. The abdomen was obese. Bowel sounds normal. No hepatomegaly or splenomegaly. Skin No specific lesions, no spider angiomata or palmar erythema. No jaundice. Neurologic Cranial nerves: Cranial nerves 2-12 intact. Psychiatric Orientation to person, place, and time: Normal. Mood and affect: Normal. Mood and Affect: concerned and expansive. Results/Data Complete Blood Count + (more content not included)... Normal [facility] CBC AND DIFFERENTIALon 10-06 -2020 % AUTOMATED IMMATURE GRAN 0.4 % Normal 0.0 - 0.9 [facility] Comment on above: Result Comment: Coleen ture Granulocyte Count (IG) includes promyelocytes, myelocytes and metamyelocytes but does not include bands. Percent differential counts (%) should be interpreted in the context of the absolute cell counts (cells/L). Performed By: #### C BCDF #### [facility] [address] [place] [address] Basophils (Bld) [#/Vol] 0.04 10*3/uL Normal 0.00 - 0.10 [facility] Comment on above: Performed By: #### C BCDF #### [facility] [address] [place] [address] Basophils/100 WBC (Bld) 0.3 % Normal 0.0 - 2.0 [facility] Comment on above: Performed By: #### C BCDF #### [facility] [address] [place] [address] Eosinophils (Bld) [#/Vol] 0.24 10*3/uL Normal 0.00 - 0.70 [facility] Comment on above: Performed By: #### C BCDF #### [facility] [address] [place] [address] Eosinophils/100 WBC (Bld) 2.0 % Normal 0.0 - 6.0 [facility] Comment on above: Performed By: #### C BCDF #### [facility] [address] [place] [address] Erythrocyte distribution width (RBC) [Ratio] 12.5 % Normal 11.5 - 14.5 [facility] Comment on above: Performed By: #### C BCDF #### [facility] [address] [place] [address] Hematocrit (Bld) [Volume fraction] 49.4 % Normal 41.0 - 52.0 [facility] Comment on above: Performed By: #### C BCDF #### [facility] [address] [place] [address] Hemoglobin (Bld) [Mass/Vol] 16.3 g/dL Normal 13.5 - 17.5 [facility] Comment on above: Performed By: #### C BCDF #### [facility] [address] [place] [address] Lymphocytes (Bld) [#/Vol] 4.55 10*3/uL Normal 1.20 - 4.80 [facility] Comment on above: Performed By: #### C BCDF #### [facility] [address] [place] [address] Lymphocytes/100 WBC (Bld) 37.8 % Normal 13.0 - 44.0 [facility] Comment on above: Performed By: #### C BCDF #### [facility] [address] [place] [address] MCHC (RBC) [Mass/Vol] 33.0 g/dL Normal 32.0 - 36.0 [facility] Comment on above: Performed By: #### C BCDF #### [facility] [address] [place] [address] MCV (RBC) [Entitic vol] 90 fL Normal 80 - 100 [facility] Comment on above: Performed By: #### C BCDF #### [facility] [address] [place] [address] Monocytes (Bld) [#/Vol] 0.59 10*3/uL Normal 0.10 - 1.00 [facility] Comment on above: Performed By: #### C BCDF #### [facility] [address] [place] [address] Monocytes/100 WBC (Bld) 4.9 % Normal 2.0 - 10.0 [facility] Comment on above: Performed By: #### C BCDF #### [facility] [address] [place] [address] Neutrophils (Bld) [#/Vol] 6.57 10*3/uL Normal 1.20 - 7.70 [facility] Comment on above: Performed By: #### C BCDF #### [facility] [address] [place] [address] Neutrophils/100 WBC (Bld) 54.6 % Normal 40.0 - 80.0 [facility] Comment on above: Performed By: #### C BCDF #### [facility] [address] [place] [address] NUCLEATED RBC 0.0 /100 WBC Normal 0.0-0.0 [facility] Comment on above: Performed By: #### C BCDF #### [facility] [address] [place] [address] Platelets (Bld) [#/Vol] 251 10*3/uL Normal 150 - 450 [facility] Comment on above: Performed By: #### C BCDF #### [facility] [address] [place] [address] RBC 5.46 x10E12/L Normal 4.50 - 5.90 [facility] Comment on above: Performed By: #### C BCDF #### [facility] [address] [place] [address] WBC (Bld) [#/Vol] 12.0 10*3/uL High 4.4 - 11.3 [facility] Comment on above: Performed By: #### C BCDF #### [facility] [address] [place] [address] COMPREHENSIVE PANELon 2019 Albumin [Mass/Vol] 4.3 g/dL Normal 3.4 - 5.0 [facility] Comment on above: Performed By: #### C MP #### [facility] [address] [place] [address] ALP [Catalytic activity/Vol] 52 U/L Normal 33 - 120 [facility] Comment on above: Performed By: #### C MP #### [facility] [address] [place] [address] ALT [Catalytic activity/Vol] 41 U/L Normal 10 - 52 [facility] Comment on above: Result Comment: Rosie ents treated with Sulfasalazine may generate falsely decreased results for ALT. Performed By: #### C MP #### [facility] [address] [place] [address] Anion gap [Moles/Vol] 11 mmol/L Normal 10 - 20 [facility] Comment on above: Performed By: #### C MP #### [facility] [address] [place] [address] AST [Catalytic activity/Vol] 22 U/L Normal 9 - 39 [facility] Comment on above: Performed By: #### C MP #### [facility] [address] [place] [address] Bilirubin [Mass/Vol] 0.5 mg/dL Normal 0.0 - 1.2 [facility] Comment on above: Performed By: #### C MP #### [facility] [address] [place] [address] Calcium [Mass/Vol] 9.8 mg/dL Normal 8.6 - 10.6 [facility] Comment on above: Performed By: #### C MP #### [facility] [address] [place] [address] Chloride [Moles/Vol] 106 mmol/L Normal 98 - 107 [facility] Comment on above: Performed By: #### C MP #### [facility] [address] [place] [address] Creatinine [Mass/Vol] 0.86 mg/dL Normal 0.50 - 1.30 [facility] Comment on above: Performed By: #### C MP #### [facility] [address] [place] [address] GFR- AM. >60 Normal >60 [facility] Comment on above: Result Comment: CALC ULATIONS OF ESTIMATED GFR ARE PERFORMED USING THE MDRD STUDY EQUATION FOR THE IDMS-TRACEABLE CREATININE METHODS. CLIN CHEM 2007;53:766-72 Performed By: #### C MP #### [facility] [address] [place] [address] GFR-NON AM. >60 Normal >60 [facility] Comment on above: Performed By: #### C MP #### [facility] [address] [place] [address] Glucose [Mass/Vol] 88 mg/dL Normal 74 - 99 [facility] Comment on above: Performed By: #### C MP #### [facility] [address] [place] [address] HCO3 (Bld) [Moles/Vol] 28 mmol/L Normal 21 - 32 [facility] Comment on above: Performed By: #### C MP #### [facility] [address] [place] [address] Potassium [Moles/Vol] 4.1 mmol/L Normal 3.5 - 5.3 [facility] Comment on above: Performed By: #### C MP #### [facility] [address] [place] [address] Protein [Mass/Vol] 7.0 g/dL Normal 6.4 - 8.2 [facility] Comment on above: Performed By: #### C MP #### [facility] [address] [place] [address] Sodium [Moles/Vol] 141 mmol/L Normal 136 - 145 [facility] Comment on above: Performed By: #### C MP #### [facility] [address] [place] [address] Urea nitrogen [Mass/Vol] 13 mg/dL Normal 6 - 23 [facility] Comment on above: Performed By: #### C MP #### [facility] [address] [place] [address] LITHIUMon 08-10-2020 Citrus [Moles/Vol] 0.42 mmol/L Low 0.60 - 1.20 [facility] Comment on above: Performed By: #### L ITH #### [facility] [address] [place] [address] LACTATEon 05-21-2020 LACTATE Canceled Normal [facility] Comment on above: Order Comment: TEST LACTATE WAS CANCELLED, 05/20/2020 23:02 DISCHARGED. Result Comment: Mahnaz puncture immediately after or during the administration of Metamizole may lead to falsely low results. Testing should be performed immediately prior to Metamizole dosing. Performed By: #### L ACT ####[facility] [place] [address] CBC AND DIFFERENTIALon 05-20 % AUTOMATED IMMATURE GRAN 0.3 % Normal 0.0 - 0.9 [facility] Comment on above: Result Comment: Coleen ture Granulocyte Count (IG) includes promyelocytes, myelocytes and metamyelocytes but does not include bands. Percent differential counts (%) should be interpreted in the context of the absolute cell counts (cells/L). Performed By: #### C BCDF #### [facility] [address] [place] [address] Basophils (Bld) [#/Vol] 0.06 10*3/uL Normal 0.00 - 0.10 [facility] Comment on above: Performed By: #### C BCDF #### [facility] [address] [place] [address] Basophils/100 WBC (Bld) 0.5 % Normal 0.0 - 2.0 [facility] Comment on above: Performed By: #### C BCDF #### [facility] [address] [place] [address] Eosinophils (Bld) [#/Vol] 0.33 10*3/uL Normal 0.00 - 0.70 [facility] Comment on above: Performed By: #### C BCDF #### [facility] [address] [place] [address] Eosinophils/100 WBC (Bld) 2.8 % Normal 0.0 - 6.0 [facility] Comment on above: Performed By: #### C BCDF #### [facility] [address] [place] [address] Erythrocyte distribution width (RBC) [Ratio] 12.6 % Normal 11.5 - 14.5 [facility] Comment on above: Performed By: #### C BCDF #### [facility] [address] [place] [address] Hematocrit (Bld) [Volume fraction] 51.1 % Normal 41.0 - 52.0 [facility] Comment on above: Performed By: #### C BCDF #### [facility] [address] [place] [address] Hemoglobin (Bld) [Mass/Vol] 16.9 g/dL Normal 13.5 - 17.5 [facility] Comment on above: Performed By: #### C BCDF #### [facility] [address] [place] [address] Lymphocytes (Bld) [#/Vol] 3.64 10*3/uL Normal 1.20 - 4.80 [facility] Comment on above: Performed By: #### C BCDF #### [facility] [address] [place] [address] Lymphocytes/100 WBC (Bld) 30.5 % Normal 13.0 - 44.0 [facility] Comment on above: Performed By: #### C BCDF #### [facility] [address] [place] [address] MCHC (RBC) [Mass/Vol] 33.1 g/dL Normal 32.0 - 36.0 [facility] Comment on above: Performed By: #### C BCDF #### [facility] [address] [place] [address] MCV (RBC) [Entitic vol] 89 fL Normal 80 - 100 [facility] Comment on above: Performed By: #### C BCDF #### [facility] [address] [place] [address] Monocytes (Bld) [#/Vol] 0.49 10*3/uL Normal 0.10 - 1.00 [facility] Comment on above: Performed By: #### C BCDF #### [facility] [address] [place] [address] Monocytes/100 WBC (Bld) 4.1 % Normal 2.0 - 10.0 [facility] Comment on above: Performed By: #### C BCDF #### [facility] [address] [place] [address] Neutrophils (Bld) [#/Vol] 7.37 10*3/uL Normal 1.20 - 7.70 [facility] Comment on above: Performed By: #### C BCDF #### [facility] [address] [place] [address] Neutrophils/100 WBC (Bld) 61.8 % Normal 40.0 - 80.0 [facility] Comment on above: Performed By: #### C BCDF #### [facility] [address] [place] [address] Platelets (Bld) [#/Vol] 244 10*3/uL Normal 150 - 450 [facility] Comment on above: Performed By: #### C BCDF #### [facility] [address] [place] [address] RBC 5.71 x10E12/L Normal 4.50 - 5.90 [facility] Comment on above: Performed By: #### C BCDF #### [facility] [address] [facility] [address] WBC (Bld) [#/Vol] 11.9 10*3/uL High 4.4 - 11.3 [facility] Comment on above: Performed By: #### C BCDF #### [facility] [address] [place] [address] CHEST 1 VIEWon 05-20-2020 CHEST 1 VIEW Patient Name: MARIKA LOZOYA STUDY: CHEST 1 VIEW; 05/20/2020 6:34 pm INDICATION: Hypertension. COMPARISON: None. ACCESSION NUMBER(S): [id number] ORDERING CLINICIAN: LEN HUMPHRIES FINDINGS: CARDIOMEDIASTINAL SILHOUETTE: Cardiomediastinal silhouette is normal in size and configuration. LUNGS: No pulmonary consolidation, pleural effusion or pneumothorax. ABDOMEN: No remarkable upper abdominal findings. BONES: No acute osseous abnormality. IMPRESSION: No radiographic evidence of acute cardiopulmonary pathology. Electronically signed by: NABILA POPE MD Normal [facility] COMPREHENSIVE PANELon 2019 Albumin [Mass/Vol] 5.0 g/dL Normal 3.4 - 5.0 [facility] Comment on above: Performed By: #### C MP #### [facility] [address] [place] [address] ALP [Catalytic activity/Vol] 57 U/L Normal 33 - 120 [facility] Comment on above: Performed By: #### C MP #### [facility] [address] [place] [address] ALT [Catalytic activity/Vol] 39 U/L Normal 10 - 52 [facility] Comment on above: Result Comment: Rosie ents treated with Sulfasalazine may generate falsely decreased results for ALT. Performed By: #### C MP #### [facility] [address] [facility] [place] [address] Anion gap [Moles/Vol] 13 mmol/L Normal 10 - 20 [facility] Comment on above: Performed By: #### C MP #### [facility] [address] [facility] [place] [address] AST [Catalytic activity/Vol] 22 U/L Normal 9 - 39 [facility] Comment on above: Performed By: #### C MP #### [facility] [address] [facility] [place] [address] Bilirubin [Mass/Vol] 0.8 mg/dL Normal 0.0 - 1.2 [facility] Comment on above: Performed By: #### C MP #### [facility] [address] [facility] [place] [address] Calcium [Mass/Vol] 9.8 mg/dL Normal 8.6 - 10.3 [facility] Comment on above: Performed By: #### C MP #### [facility] [address] [facility] [place] [address] Chloride [Moles/Vol] 105 mmol/L Normal 98 - 107 [facility] Comment on above: Performed By: #### C MP #### [facility] [address] [facility] [place] [address] Creatinine [Mass/Vol] 0.94 mg/dL Normal 0.50 - 1.30 [facility] Comment on above: Performed By: #### C MP #### [facility] [address] [facility] [place] [address] GFR- AM. >60 Normal >60 [facility] Comment on above: Result Comment: CALC ULATIONS OF ESTIMATED GFR ARE PERFORMED USING THE MDRD STUDY EQUATION FOR THE IDMS-TRACEABLE CREATININE METHODS. CLIN CHEM 2007;53:766-72 Performed By: #### C MP #### [facility] [address] [facility] [place] [address] GFR-NON AM. >60 Normal >60 [facility] Comment on above: Performed By: #### C MP #### [facility] [address] [place] [address] Glucose [Mass/Vol] 87 mg/dL Normal 74 - 99 [facility] Comment on above: Performed By: #### C MP #### [facility] [address] [place] [address] HCO3 (Bld) [Moles/Vol] 25 mmol/L Normal 21 - 32 [facility] Comment on above: Performed By: #### C MP #### [facility] [address] [place] [address] Potassium [Moles/Vol] 3.4 mmol/L Low 3.5 - 5.3 [facility] Comment on above: Performed By: #### C MP #### [facility] [address] [place] [address] Protein [Mass/Vol] 7.7 g/dL Normal 6.4 - 8.2 [facility] Comment on above: Performed By: #### C MP #### [facility] [id number] [place] [address] Sodium [Moles/Vol] 140 mmol/L Normal 136 - 145 [facility] Comment on above: Performed By: #### C MP #### [facility] [address] [place] [address] Urea nitrogen [Mass/Vol] 15 mg/dL Normal 6 - 23 [facility] Comment on above: Performed By: #### C MP #### [facility] [id number] [place] [address] ABDOMEN AND PELVIS W IV C [facility] 05-20-2020 CT ABDOMEN AND PELVIS W IV CONTRAST Patient Name: MARIKA LOZOYA STUDY: CT abdomen and pelvis with contrast. INDICATION: abdominal pain. COMPARISON: None ACCESSION NUMBER(S): [id number] ORDERING CLINICIAN: LEN HUMPHRIES TECHNIQUE: Axial images of the abdomen and pelvis were obtained. 90 mL of Isovue 370 was given intravenously.Coronal and sagittal reformats were obtained. FINDINGS: Lung bases: There is a 2 mm nodule in the left lower lobe. Heart/mediastinum: Unremarkable Liver: Unremarkable Gallbladder/bile ducts: Status post cholecystectomy. Pancreas: Unremarkable Spleen: Unremarkable Adrenal glands: Unremarkable Kidneys/collecting system/urinary bladder: Unremarkable Pelvic structures: Unremarkable Peritoneum/retroperitoneu m/omentum: Unremarkable Lymph nodes: Unremarkable GI tract: Unremarkable Abdominal wall: Unremarkable Vascular: Unremarkable Musculoskeletal: Unremarkable IMPRESSION: 1. No acute finding. Electronically signed by: ASHLEY MEAD MD Normal [facility] LIPASEon 05-20-2020 Lipase [Catalytic activity/Vol] 18 U/L Normal 9 - 82 [facility] Comment on above: Result Comment: Mahnaz puncture immediately after or during the administration of Metamizole may lead to falsely low results. Testing should be performed immediately prior to Metamizole dosing. Z-ialhtd-l-benzoquinone imine (metabolite of Acetaminophen) will generate erroneously low results in samples for patients that have taken toxic doses of acetaminophen. Performed By: #### L IPAS ####[facility] [place] [address] Provider Note - ED v2on 05-05 Provider Note - ED v2 Provider Note - ED v2: Chart Review: ED NOTES ED NOTES: History of present illness: This is a 29-year-old male presents emergency secondary to the complaint of lower abdominal pain and rectal bleeding. Patient states that he has a history of IBS as well as anger issues . Patient states that he is under the care of Dr. Hernadez over his anger issues. He was diagnosed with IBS a few years ago reportedly by a primary care physician in [place], [place]. He can not remember the name of the PCP. He was never placed on medications for the issue. He states he has never had an abdominal CT, colonoscopy or any surgeries on his abdomen. Patient advises that he had an onset of loose watery stools somewhere around noon today. He has had a total of 4 loose watery stools and advises that he has had blood in each one of these. He denies the passage of clots. He denies any fevers or chills. He denies any lightheadedness or dizziness associated with the issue. He does not take any anticoagulants or routine use of NSAIDs. Patient states that he had one episode of dry heaves he states there was blood in it but then also indicates that there was no emesis. Patient reports that he is having pain with on his lower abdomen. He describes it as crampy and sharp in nature. It does not radiate. HISTORY OF PRESENTING ILLNESS MARIKA is a 29 year old Male and was seen by me at 20-May-2020 17:59 for a chief complaint of bloody stools (reports hx of IBS but today had diarrhea x 4 with brant red blood as well as dry heaved blood. reports c/o pelvic pain 06/14. denies thinners. pt states his young son was exposed to a covid + pt weeks ago.)(1). Triage Information: Most recent Vital Sign Value Date Temp (F): 97.5 05-20-2020 17:54 Temp (C): 36.4 05-20-2020 17:54 Heart Rate (beats/min): 75 05-20-2020 17:54 Respirations (breaths/min): 18 05-20-2020 17:54 SpO2 (%): 99 05-20-2020 17:54 BP Systolic (mm Hg): 122 05-20-2020 17:54 BP Diastolic (mm Hg): 86 05-20-2020 17:54 PAST MEDICAL HISTORY ATTESTATION: I have reviewed and confirmed nurse's/medic's notes for patient's medications, allergies, medical history, and surgical history CURRENT OR FORMER SUBSTANCE USE: NO: Cigarette/Tobacco, e-Cigarette/Vaping, Alcohol and Street Drugs ALLERGIES/INTOLERANCES: Allergy Allergen: morphine Type: Drug Reaction: Other (Mild) HEALTH HISTORY: No documented data. OUTPATIENT MEDICATIONS: Home Medications Review Status for Reconciliation: N/A Med Status: Patient Currently Takes Medications Drug Name: ofloxacin 0.3% otic solution Instructions: 5 drop(s) in each affected ear 2 times a day x 10 days Drug Name: Augmentin 875 mg-125 mg oral tablet Instructions: 1 tab(s) orally every 12 hours x 10 days SIGNIFICANT EVENTS: Past Medical History Description:Irritable bowel syndrome REVIEW OF SYSTEMS CONSTITUTIONAL: Negative for: anorexia, chills, diaphoresis, fever, malaise and weakness EYES: Negative for: pain ENMT Ears: Negative for: pain Nose: Negative for: congestion, discharge and sneezing Throat/Neck: Negative for: neck pain CARDIOVASCULAR: Negative for: chest pain and edema RESPIRATORY: Negative for: cough, dyspnea and wheezing GASTROINTESTINAL: POSITIVE for: abdominal pain and diarrhea; change in bowel habits Negative for: nausea and vomiting; GENITOURINARY: Negative for: dysuria; MUSCULOSKELETAL: Negative for: back pain NEUROLOGICAL: Negative for: dizziness and headache; ENDOCRINE: Negative for: diabetes PHYSICAL EXAM CONSTITUTIONAL: Patient is alert and oriented 4. Sitting upright in a well lit room. Patient does not appear acutely uncomfortable or ill. No evidence of respiratory distress or circulatory compromise. HENMT: Airway patent, ears with clear tympanic membranes bilaterally. Nasal mucosa clear. Mouth with normal mucosa. Throat has no vesicles, no oropharyngeal exudates and uvula is midline. Face with no lymph node enlargement. EYES: Clear bilaterally, pupils equal, round and reactive to light. CARDIOVASCULAR: Normal rate, regular rhythm. Heart sounds S1, S2. No murmurs, rubs or gallops. PMI non-displaced. GASTROINTESTINAL: Abdomen soft, non-distended, no rebound, no guarding. Bowel sounds normal in all 4 quadrants. Rectal exam normal rectal tone. No obvious rectal bleeding, no external or internal hemorrhoids. Small amount of soft brown stool within the rectal vault which was guaiac negative MUSCULOSKELETAL: Spine appears normal, range of motion is not limited, no muscle or joint tenderness. NEUROLOGICAL: Alert and oriented, no focal deficits, no motor or sensory deficits. SKIN: Skin normal color for race, warm, dry and intact. No evidence of trauma. PSYCHIATRIC: Alert and oriented to person, place, time/situation. normal mood and affect. No apparent risk to self or others. HEME/LYMPH: No adenopathy or splenomegaly. (more content not included)... Normal [facility] Risk Screen - Adult Emergenc yon 05-20-2020 Risk Screen - Adult Emergency Preferred Language: Preferred Language: Preferred Language for Discussing Health Care (patient/designee)Korean Advanced Directives: Advance Directive/DNRno Family Violence Adult: Abuse Screen: Are you or have you been threatened or abused physically, emotionally, or sexually by anyoneno Learning Assessment (Patient): Learning Assessment (Patient): Patient is Able to be Assessed for Learningyes Factors Influencing Readiness to Learnmotivation to learn Factors that Impact Ability to Learnnone Devices/Methods Used to Communicatenone Learning Preferencesindividual instruction; skill demonstration; verbal instruction; written material Cultural Considerationsnone Developmental Considerationsnone Tenriism Considerationsnone Learning Assessment (Other Learner): Learning Assessment (Other Learner): Other learner availableno Pressure Injury/TB/Substance: Pressure Injury: Do you have a coughno Substance Use Current or Former Historynever: Cigarette/Tobacco, e-Cigarette/Vaping, Street Drugs YES: Alcohol Admission Risk Screen: Significant IndicatorsComplete CAGE: CAGE: Is this an injured patient at a Trauma Center ([facility]/[place]/ [place]): no Electronic Signatures: Dahlia Mohan (RN) (Signed 20-May-2020 17:58) Authored: Preferred Language, Advanced Directives, Family Violence Adult, Learning Assessment (Patient), Learning Assessment (Other Learner), Pressure Injury/TB/Substance, CAGE Last Updated: 20-May-2020 17:58 by Dahlia Mohan (RN) Normal [facility] Triage - EDon 05-20-2020 Triage - ED Chart Review: CHIEF COMPLAINT MARIKA LOZOYA is a Male patient with a chief complaint of bloody stools (reports hx of IBS but today had diarrhea x 4 with brant red blood as well as dry heaved blood. reports c/o pelvic pain 8/10. denies thinners. pt states his young son was exposed to a covid + pt weeks ago.). Triage Date/Time: 20-May-2020 17:50 Pain Rating (0-10): 8 = Severe Vital Signs: Temperature: 97.5F ( 36.4C) taken temporal Blood Pressure: 122/86 Mean: Heart Rate: 75 Respiratory Rate: 18 Pulse Oximetry: 99% on room air, no respiratory support. Height: 5 feet 8.00 inches. 172.7 CM Weight: 281.9 pounds. Calculated 127.9 kg. (stated) Calculated BMI (kg/m2): 42.883 Calculated BSA (m2) 2.48 Ragland Coma Scale: Best Eye Response: (E4) spontaneous Best Motor Response: (M6) obeys commands Best Verbal Response: (V5) oriented Ragland Score: 15 Allergies: yes Mask applied: yes Patient has homicidal thoughts: no NATALIE: 3 Risk Screens Suicide Risk Screen In the Past Month: Have you wished you were or wished you could go to sleep and not wake up no In the Past Month: Have you had any actual thoughts of killing yourself no In Your Lifetime: Have you ever done anything, started to do anything, or prepared to do anything to end your life no Allred Fall Scale Screening Has the patient fallen before (or is the patient in the ED as a result of a fall) has not had a fall Does the patient have an impaired gait does not have impaired gait Is the patient cognitively impaired not cognitively impaired Interventions: Allred Fall Interventions: *patient oriented to surroundings and call system, * patient/family falls education completed and documented, *patients fall status communicated during bedside handoff, *whiteboard updated, *mode of toileting discussed with patient, *bed in low position with brakes locked, *call light in reach, * non-skid footwear PAIN Pain Scale Used: ALLEN Pain Rating (0-10): 8 = Severe ARRIVAL INFORMATION Means of Arrival: Ambulatory Mode of Arrival: private vehicle Arrival From: home Accompanied By: self Language: Spoken Language Preferred: Korean PRIMARY ASSESSMENT MARIKA LOZOYA's primary assessment is Within Defined Limits. The airway is open and patent. Breathing spontaneous and unlabored with clear breath sounds bilaterally. Circulation is normal with good peripheral pulses. Skin is warm and dry and color is normal for race. PAST MEDICAL HISTORY Immunization History: Last Known Tetanus Immunization: Unknown TRAVEL HISTORY Travel History Coronavirus Screening: positive for exposure Travel Exposure History: NO travel to International locations in the past 30 days Past Medical History: Past Medical History Reviewedyes Irritable bowel syndrome: Past Medical History, Active Electronic Signatures: Dahlia Mohan (KAITY) (Signed 20-May-2020 17:59) Authored: Triage, Past Medical History Last Updated: 20-May-2020 17:59 by Dahlia Mohan (KAITY) Normal [facility] URINALYSISon 05-20-2020 Appearance (U) CLEAR Normal CLEAR [facility] Comment on above: Performed By: #### U A #### [facility] [address] [place] [address] Bilirubin Ql (U) Negative Normal NEGATIVE [facility] Comment on above: Performed By: #### U A #### [facility] [address] [place] [address] Color (U) YELLOW Normal STRAW,YELLO W [facility] Comment on above: Performed By: #### U A #### [facility] [address] [facility] [address] Glucose Ql (U) Negative Normal NEGATIVE [facility] Comment on above: Performed By: #### U A #### [facility] [address] [place] [address] Hemoglobin Ql (U) Negative Normal NEGATIVE [facility] Comment on above: Performed By: #### U A #### [facility] [address] [place] [address] Ketones Ql (U) Negative Normal NEGATIVE [facility] Comment on above: Performed By: #### U A #### [facility] [address] [facility] [place] [address] Leukocyte esterase Test strip Ql (U) Negative Normal NEGATIVE [facility] Comment on above: Performed By: #### U A #### [facility] [address] [place] [address] Nitrite Ql (U) Negative Normal NEGATIVE [facility] Comment on above: Performed By: #### U A #### [facility] [address] [place] [address] pH (U) 5.0 [pH] Normal 5.0 - 8.0 [facility] Comment on above: Performed By: #### U A #### [facility] [address] [place] [address] Protein Ql (U) Negative Normal NEGATIVE [facility] Comment on above: Performed By: #### U A #### [facility] [address] [place] [address] Specific gravity (U) [Rel density] 1.024 Normal 1.005 - 1.035 [facility] Comment on above: Performed By: #### U A #### [facility] [address] [facility] [place] [address] Urobilinogen (U) [Mass/Vol] mg/dL Normal 0.0 - 1.9 [facility] Comment on above: Performed By: #### U A #### [facility] [address] [facility] [place] [address] Vital Signs Date Time Vital Sign Value Performing Clinician Facility 06-19-2025 08:00-0400 Body mass index (BMI) [Ratio] 50.5 kg/m2 Juliettetoni Zamorano SEAMER OPERATOR-C Work Phone: [facility] 06-19-2025 08:00-0400 Body temperature 97.5 [degF] Juliettetoni Zamorano SEAMER OPERATOR-C Work Phone: [facility] 06-19-2025 08:00-0400 Body weight 155.12 kg Juliette Zamorano SEAMER OPERATOR-C Work Phone: [facility] 06-19-2025 08:00-0400 Diastolic blood pressure 81 mm[Hg] Juliettetoni Zamorano SEAMER OPERATOR-C Work Phone: [facility] 06-19-2025 08:00-0400 Heart rate 93 /min Juliette Zamorano SEAMER OPERATOR-C Work Phone: [facility] 06-19-2025 08:00-0400 Respiratory rate 18 /min Juliette Zamorano SEAMER OPERATOR-C Work Phone: [facility] 06-19-2025 08:00-0400 SaO2% (BldA) [Mass fraction] 93 % Juliettetoni Zamorano SEAMER OPERATOR-C Work Phone: [phone] [place] [address] 06-19-2025 08:00-0400 Systolic blood pressure 146 mm[Hg] Juliette Zamorano SEAMER OPERATOR-C Work Phone: [facility] 11-28-2024 10:30-0500 Body height 175.3 cm Chiquita Juarez MD Work Phone: [facility] 11-28-2024 10:30-0500 Body mass index (BMI) [Ratio] 48.14 kg/m2 Chiquita Juarez MD Work Phone: [facility] 11-28-2024 10:30-0500 Body weight 147.87 kg Chiquita Juarez MD Work Phone: [facility] 11-28-2024 10:30-0500 Diastolic blood pressure 77 mm[Hg] Chiquita Juarez MD Work Phone: [facility] 11-28-2024 10:30-0500 Heart rate 85 /min Chiquita Juarez MD Work Phone: [facility] 11-28-2024 10:30-0500 Respiratory rate 14 /min Chiquita Juarez MD Work Phone: [facility] 11-28-2024 10:30-0500 Systolic blood pressure 116 mm[Hg] Chiquita Juarez MD Work Phone: [facility] 09-23-2024 10:29-0500 Body height 175.3 cm Vania Velasquez PA-C Work Phone: [facility] 09-23-2024 10:29-0500 Body mass index (BMI) [Ratio] 47.11 kg/m2 Vania Velasquez PA-C Work Phone: [facility] 09-23-2024 10:29-0500 Body temperature 97.9 [degF] Vania Velasquez PA-C Work Phone: [facility] 09-23-2024 10:29-0500 Body weight 144.7 kg Vania Velasquez PA-C Work Phone: [facility] 09-23-2024 10:29-0500 Diastolic blood pressure 76 mm[Hg] Vania Velasquez PA-C Work Phone: [facility] 09-23-2024 10:29-0500 Heart rate 100 /min Vania Velasquez PA-C Work Phone: [facility] 09-23-2024 10:29-0500 Respiratory rate 16 /min Vania Velasquez PA-C Work Phone: [facility] 09-23-2024 10:29-0500 SaO2% (BldA) [Mass fraction] 100 % Vania Velasquez PA-C Work Phone: [facility] 09-23-2024 10:29-0500 Systolic blood pressure 118 mm[Hg] Vania Velasquez PA-C Work Phone: [facility] 06-26-2024 09:59-0400 Body mass index (BMI) [Ratio] 46.11 kg/m2 Fernando Moomaw BURNER TECHNICIAN.SAUSAGE CUTTER Work Phone: [facility] 06-26-2024 09:59-0400 Body temperature 98.29 [degF] Fernando Moomaw BURNER TECHNICIAN.SAUSAGE CUTTER Work Phone: [facility] 06-26-2024 09:59-0400 Body weight 139.6 kg Fernando Moomaw BURNER TECHNICIAN.SAUSAGE CUTTER Work Phone: [facility] 06-26-2024 09:59-0400 Diastolic blood pressure 86 mm[Hg] Fernando Moomaw BURNER TECHNICIAN.SAUSAGE CUTTER Work Phone: [facility] 06-26-2024 09:59-0400 Heart rate 100 /min Fernando Moomaw BURNER TECHNICIAN.SAUSAGE CUTTER Work Phone: [facility] 06-26-2024 09:59-0400 Respiratory rate 20 /min Fernando Moomaw BURNER TECHNICIAN.SAUSAGE CUTTER Work Phone: [facility] 06-26-2024 09:59-0400 SaO2% (BldA) [Mass fraction] 92 % Fernando Moomaw BURNER TECHNICIAN.SAUSAGE CUTTER Work Phone: [facility] 06-26-2024 09:59-0400 Systolic blood pressure 128 mm[Hg] Fernando Moomaw BURNER TECHNICIAN.SAUSAGE CUTTER Work Phone: [facility] 01-21-2024 09:31-0400 Body temperature 98.4 [degF] Mira Queen BURNER TECHNICIAN.SAUSAGE CUTTER Work Phone: [facility] 01-21-2024 09:31-0400 Body weight 141.5 kg Mira Queen BURNER TECHNICIAN.SAUSAGE CUTTER Work Phone: [facility] 01-21-2024 09:31-0400 Diastolic blood pressure 68 mm[Hg] Mira Queen BURNER TECHNICIAN.SAUSAGE CUTTER Work Phone: [facility] 01-21-2024 09:31-0400 Heart rate 110 /min Mira Queen BURNER TECHNICIAN.SAUSAGE CUTTER Work Phone: [facility] 01-21-2024 09:31-0400 Respiratory rate 20 /min Mira Queen BURNER TECHNICIAN.SAUSAGE CUTTER Work Phone: [facility] 01-21-2024 09:31-0400 SaO2% (BldA) [Mass fraction] 98 % Mira Singer [facility] Work Phone: [facility] 01-21-2024 09:31-0400 Systolic blood pressure 130 mm[Hg] Mira Queen APRN.[facility] Work Phone: [facility] 07-21-2022 17:42-0400 Body height 175.26 cm [place] Work Phone: 07-21-2022 17:42-0400 Body mass index (BMI) [Ratio] 47.9 kg/m2 [facility] Work Phone: 07-21-2022 17:42-0400 Body temperature 97.3 [degF] [facility] Work Phone: 07-21-2022 17:42-0400 Body weight 147.3 kg [place] Work Phone: 07-21-2022 17:42-0400 Diastolic blood pressure 86 mm[Hg] [facility] Work Phone: 07-21-2022 17:42-0400 Heart rate 80 /min [facility] Work Phone: 07-21-2022 17:42-0400 Respiratory rate 16 /min [facility] Work Phone: 07-21-2022 17:42-0400 SaO2% (BldA) [Mass fraction] 96 % [facility] Work Phone: 07-21-2022 17:42-0400 Systolic blood pressure 143 mm[Hg] [facility] Work Phone: 08-01-2021 15:07-0400 Body height 172.09 cm Fuad Billingsley Work Phone: [facility] Work Phone: 08-01-2021 15:07-0400 Body mass index (BMI) [Ratio] 49.48 kg/m2 Fuad Billingsley Work Phone: [facility] Work Phone: 08-01-2021 15:07-0400 Body surface area Derived from formula 2.5 m2 Fuad Billingsley Work Phone: [facility] Work Phone: 08-01-2021 15:07-0400 Body temperature 97 [degF] Fuad Billingsley Work Phone: [facility] Work Phone: 08-01-2021 15:07-0400 Body weight 146.51 kg Fuad Billingsley Work Phone: [facility] Work Phone: 08-01-2021 15:07-0400 Diastolic blood pressure 78 mm[Hg] Fuad Billingsley Work Phone: [facility] Work Phone: 08-01-2021 15:07-0400 SaO2% (BldA) [Mass fraction] 97 % Fuad Billingsley Work Phone: [facility] Work Phone: 08-01-2021 15:07-0400 Systolic blood pressure 144 mm[Hg] Fuad Billingsley Work Phone: [facility] Work Phone: 03-23-2021 09:47-0400 Body height 177.8 cm No Pcp Required [facility] 03-23-2021 09:47-0400 Body temperature 98.06 [degF] No Pcp Required [facility] 03-23-2021 09:47-0400 Body weight 148.2 kg No Pcp Required [facility] 05-19-2021 09:47-0400 Diastolic blood pressure 84 mm[Hg] No Pcp Required [facility] 03-23-2021 09:47-0400 Heart rate 89 /min No Pcp Required [facility] 03-23-2021 09:47-0400 Respiratory rate 18 /min No Pcp Required [facility] 03-23-2021 09:47-0400 SaO2% (BldA) [Mass fraction] 98 % No Pcp Required [facility] 03-23-2021 09:47-0400 Systolic blood pressure 142 mm[Hg] No Pcp Required [facility] 09-21-2020 16:16-0500 BMI (Body Mass Index) 43.33 kg/m2 [facility] Work Phone: 09-21-2020 16:16-0500 Body weight 129.28 kg [facility] Work Phone: 09-21-2020 16:16-0500 BSA (Body Surface Area) 2.38 m2 [facility] Work Phone: 09-21-2020 16:16-0500 Height 172.72 cm [facility] Work Phone: Encounters Encounter Date Encounter Type Care Provider Facility Start: 06-30-2025 ambulatory Juliette Stein in [facility] Facility:[facility] Start: 06-19-2025 End: 06-19-2025 Patient encounter procedure Selina Linda SEAMER OPERATOR-C -[facility] Work Phone: Start: 06-19-2025 End: 06-19-2025 ambulatory Juliette Zamorano SEAMER OPERATOR-C Work Phone: -[facility] Start: 06-03-2025 End: 06-03-2025 ambulatory Juliette Zamorano SEAMER OPERATOR-C Work Phone: -[facility] Lab Start: 06-03-2025 End: 06-03-2025 Patient encounter procedure [facility] Juliette Zamorano NP-C -Sleep Lab Work Phone: Start: 06-03-2025 End: 06-03-2025 ambulatory Juliette Zamorano [facility] Facility:[facility] Start: 05-19-2025 End: 05-19-2025 ambulatory Juliette Jaun SEAMER OPERATOR-C Work Phone: -Laboratory Jessica [facility]iente Start: 05-19-2025 End: 05-19-2025 Patient encounter procedure [facility] Juliette Jaun SEAMER OPERATOR-C -Laboratory [facility] Start: 05-19-2025 End: 05-19-2025 ambulatory Juliette Jaun [facility] Facility:[facility] Start: 03-12-2025 End: 03-12-2025 Follow-up encounter Chiquita Juarez MD Work Phone: [facility] Comment on above: Results Start: 03-12-2025 End: 03-12-2025 Patient encounter procedure [facility] Furniture [employer]er Work Phone: [facility] Comment on above: Encounter for steril ization Start: 03-12-2025 End: 03-12-2025 ambulatory CHIQUITA CARVALHOEKH Facility:[facility] Start: 03-03-2025 ambulatory CHIQUITA JUAREZ Facility:[facility] Start: 02-17-2025 End: 02-17-2025 ambulatory Juliette Jaun SEAMER OPERATOR-C Work Phone: [facility] Work Phone: Start: 02-17-2025 End: 02-17-2025 Patient encounter procedure [facility] Juliette Jaun HIRSCH-C -Laboratory, [facility] Start: 02-17-2025 End: 02-17-2025 ambulatory Juliette Jaun [facility] Facility:[facility] Start: 11-28-2024 End: 11-28-2024 ambulatory [facility] Facility:[facility] Start: 11-28-2024 End: 11-28-2024 Patient encounter procedure Chiquita Juarez MD Work Phone: Urology Comment on above: Encounter for steril ization (Primary Dx) Start: 11-25-2024 End: 11-25-2024 ambulatory [facility] Facility:[facility] Start: 11-25-2024 End: 11-25-2024 Discharged Recurring Claudia SANTOS -Physical Therapy Work Phone: Start: 11-18-2024 End: 11-18-2024 Patient encounter procedure [facility] Juliette Zamorano NP-C -Laboratory, [facility] Start: 11-18-2024 End: 11-18-2024 ambulatory Juliette Zamorano [facility] Facility:[facility] Start: 09-30-2024 ambulatory [facility] Facility:[facility] Start: 09-23-2024 End: 09-23-2024 ambulatory VANIA VELASQUEZ Facility:[facility] Start: 09-23-2024 End: 09-23-2024 Patient encounter procedure Vania RUSSOC Work Phone: Urology Comment on above: Vasectomy evaluation (Primary Dx) Start: 09-01-2024 End: 09-01-2024 ambulatory [facility] Facility:[facility] Start: 08-19-2024 End: 08-19-2024 ambulatory KOURTNEY GVORA Facility:[facility] Start: 07-15-2024 End: 07-15-2024 Telephone encounter Kourtney Sherwood APRN.SAUSAGE CUTTER Work Phone: [facility] Start: 06-26-2024 End: 06-26-2024 ambulatory ELYSABEZAKI GVORA Facility:[facility] Start: 06-26-2024 End: 06-26-2024 Patient encounter procedure Fernando Amijose BURNER TECHNICIAN.SAUSAGE CUTTER Work Phone: [facility] Comment on above: Bacterial pneumonia (Primary Dx) Start: 05-21-2024 ambulatory ELYSABETH A GVORA Facil ity:[facility] Start: 05-21-2024 End: 05-21-2024 Subsequent hospital visit by physician [facility] (1.5t) [facility] Comment on above: ASNHL (asymmetrical sensorineural hearing loss) [H90.3] Start: 05-01-2024 End: 05-01-2024 ambulatory DAHLIA HOLCOMB Facility:[facility] Start: 05-01-2024 End: 05-01-2024 Patient encounter procedure Kourtney Sherwood BURNER TECHNICIAN.SAUSAGE CUTTER Work Phone: Otolaryngology Comment on above: ASNHL (asymmetrical sensorineural hearing loss) (Primary Dx); Tinnitus, left ear Abnormal auditory pe rception of both ears (Primary Dx); Tinnitus, bilateral; Ear pressure, bilateral Start: 03-03-2024 End: 03-03-2024 Subsequent hospital visit by physician [facility] Work Phone: Radiology Start: 01-21-2024 End: 01-21-2024 Patient encounter procedure Mira Queen BURNER TECHNICIAN.SAUSAGE CUTTER Work Phone: [facility] Comment on above: [place] eye disease of left eye (Primary Dx) Start: 07-21-2022 End: 07-21-2022 Emergency department patient visit [facility]-Emergency Department Start: 05-05-2022 End: 05-05-2022 Patient encounter procedure [facility]-Laboratory Start: 08-05-2021 Chart Update Fuad Billingsley Work Phone: [facility] Work Phone: Start: 08-01-2021 Office outpatient vi sit 25 minutes Fuad Billingsley Work Phone: [facility] Work Phone: Start: 03-23-2021 End: 03-23-2021 Emergency department patient visit Angela Allen [facility] 01 Start: 09-21-2020 Patient encounter procedure Fuad Billingsley [facility] Work Phone: Start: 08-09-2020 Patient encounter procedure Fuad Billingsley [facility] Work Phone: Start: 03-13-2019 Patient encounter procedure BORIS (BURNER TECHNICIAN) OSCAR Facility:[facility] Start: 12-12-2018 End: 12-12-2018 Patient encounter procedure BORIS ORDONEZ) OSCAR Facility:[facility] Start: 12-02-2018 Patient encounter procedure BORIS (BURNER TECHNICIAN) OSCAR Facility:[facility] Procedures Date Procedure Procedure Detail Performing Clinician Start: 03-12-2025 Semen analysis sperm presence&/motility ralph Juarez MD Work Phone: Start: 02-17-2025 Vitamin D, 25-hydrox y measurement Juliette Zamorano SEAMER OPERATOR-C Work Phone: Comment on above: Vitamin D StatusDefi ciency: <20 ng/mL (50nmol/L)Insufficiency: 20-30 ng/mL (50-75 nmol/L)Sufficiency: 30-100 ng/mL (75-250 nmol/L)Toxicity: >100 ng/mL (>250 nmol/L) Start: 05-01-2024 HEARING TEST/AUDIOGRAM Dahlia ANGEL Work Phone: Start: 03-03-2024 Radex spine lumbosac ral 2/3 views [facility] Provider Start: 07-21-2022 Diagnostic radiograp hy of finger Start: 05-05-2022 Radiography of ankle Laparoscopic cholecystectomy Fuad Billingsley Operative procedure on knee Fuad Billingsley Plan of Treatment Date Care Activity Detail Author Start: 07-06-2025 Influenza vaccination Influenz a Vaccine (Season Ended) [facility] Start: 02-26-2025 End: 11-28-2025 POST VASEC SCREEN POST VASEC SCREEN Andrology Routine Encounter for sterilization Expected: 02/26/2025, Expires: 11/28/2025 [facility] Work Phone: Comment on above: Expected: 02/26/2025 , Expires: 11/28/2025 Start: 11-06-2024 End: 11-06-2024 Patient encounter procedure 11/06/2024 2:00 PM EST Office Visit Urology [address] [id number] Sagar Moreno MD [address] [place] [address] [facility] Comment on above: VASECTOMY Start: 07-06-2024 Covid-19 Vaccine ( season) Covid-19 Vaccine ( season) [facility] Start: 07-06-2024 Covid-19 Vaccine ( season) Covid-19 Vaccine ( season) [facility] Start: 07-06-2024 Influenza vaccination C [facility] Start: 05-21-2024 End: 05-21-2024 Patient encounter procedure 05/21/2024 11:15 AM EDT Appointment [facility] [address] [place] [id number] Rule out vestibular schwannoma ( asymmetrical hearing loss) [facility] Comment on above: Rule out vestibular schwannoma ( asymmetrical hearing loss) Start: 11-05-2023 Behavioral Health Screening Behavioral Health Screening [facility] Start: 11-05-2023 Depression Assessment Depression Ass essment [facility] Start: 07-06-2023 Covid-19 Vaccine ( season) Covid-19 Vaccine () [facility] Start: 07-06-2023 Influenza vaccination Influenza Vacc ine (#1) [facility] Start: 08-01-2021 Patient encounter procedure [facility] Start: 06-21-2021 Patient encounter procedure [facility] Start: 10-11-2020 COLONSCOPY WITH BIOPSIES COLON SCOPY WITH BIOPSIES Date: 11-Oct-2020 Comments: Provider name: Daisy Carrilloated By: [facility] Comment on above: Provider name: Rita CarrilloCreated By: [facility] Start: 2009 Hepatitis B Vaccine (1 of 3 - 19+ 3-dose series) Hepatitis B Vaccine (1 of 3 - 19+ 3-dose series) [facility] Start: 2009 Urine microalbumin profile DTaP,Tdap,Td Vaccine (1 - Tdap) [facility] Start: 2008 Depression Screening Depression Scre ening [facility] Start: 2008 Hepatitis C screening Hepatitis C Sc art [facility] Start: 2008 HIV screening HIV Screening [facility] End: 05-31-2025 MR Brain WO and W contrast IV MRI BRAIN WO/W IVCON Radiology Routine ASNHL (asymmetrical sensorineural hearing loss) Tinnitus, left ear 1 Occurrences starting 05/01/2024 until 05/31/2025 [facility] Work Phone: Comment on above: 1 Occurrences starti ng 05/01/2024 until 05/31/2025 MR Brain WO and W contrast IV MRI BRAIN WO/W IVCON Radiology Routine ASNHL (asymmetrical sensorineural hearing loss) Tinnitus, left ear 05/21/2024 1:11 PM EDT [facility] Work Phone: Patient Education ED Finger Contusion [facility] Work Phone: Patient referral [facility] Work Phone: SURGICAL PATHOLOGY SURGICAL PATH OLOGY Lab Routine Encounter for sterilization 11/28/2024 11:11 AM EST [facility] Vasectomy uni/bi spx w/postop semen exams VASECTOMY Procedures Routine Vasectomy evaluation Ordered: 09/23/2024 [facility] Work Phone: Comment on above: Ordered: 09/23/2024 [facility] Work Phone: NEGATED: Highlighted row has been ruled out! Planned Goals not documented [facility] Work Phone: Immunizations Immunization Date Immunization Notes Care Provider Susanna villagomez 08-09-2020 influenza, injectabl e, quadrivalent, preservative free; Translations: [Flulaval Quadrivalent 0.5 ML Intramuscular Suspension Prefilled Syringe] Fuad Billingsley [facility] Work Phone: Comment on above: Series: 08-09-2020 influenza virus vacc ine, unspecified formulation Mira Queen APRN.SAUSAGE CUTTER Work Phone: [facility] 09-30-2014 influenza, seasonal, injectable Fuad Billingsley Work Phone: [facility] Payers Date Payer Category Payer Self-pay [id number] 2024 Medicaid [id number] 2015 Medicaid [id number] 2015 Unknown [id number] 1990 Unknown [id number] 2.16.8 [id number] 1990 Unknown [id number] 2.16.8 [id number] 1990 Unknown [id number] 2.16.8 [id number] Medicaid [id number] 27 [id number] Unknown Unknown [id number] 2.16.8 [id number] Unknown [id number] 2.16.8 [id number] Unknown [id number] 2.16.8 [id number] Unknown [id number] 2.16.8 [id number] Unknown [id number] 2.16.8 [id number] Unknown [id number] 2.16.8 [id number] Unknown [id number] 2.16.8 [id number] Unknown [id number] 2.16.8 [id number] Unknown [id number] 2.16.8 [id number] Unknown [id number] 2.16.8 [id number] Social History Date Type Detail Facility Start: 05-05-2022 End: 07-21-2022 Tobacco smoking consumption unknown [facility] Start: 01-21-2024 End: 05-01-2024 Occasional alcohol use Occasional alcohol use [facility] Start: 1990 Sex Assigned At Male C [facility] Start: 01-21-2024 End: 11-28-2024 Tobacco smoking status NHIS Ex-smoker [facility] End: 07-09-2015 History of tobacco use Current smoker [facility] End: 07-09-2015 History of tobacco use Cigarette Smoker [facility] History of tobacco use Cigar Smoker [facility] Start: 01-21-2024 End: 11-28-2024 Tobacco use and exposure Smokeless tobacco non-user [facility] Start: 01-21-2024 End: 11-28-2024 Alcohol intake Current drinker of alcohol (finding) [facility] Start: 01-21-2024 End: 05-01-2024 Tobacco use panel [facility] Adult Depression Screening Assessment 0 [facility] Start: 01-21-2024 Tobacco Comment cigars [facility] Start: 03-21-2013 Alcohol Comment special occassion [facility] Start: 12-12-2018 Gender identity Identifies as male gender (finding) [facility] Start: 12-12-2018 Sexual orientation Heterosexual (fin ann-marie) [facility] Start: 07-21-2022 Tobacco smoking stat us NHIS Current some day smoker [facility] Start: 02-23-2025 Sex Male (finding) [facility] NEGATED: Highlighted row - - -[facility] Work Phone: NEGATED: Highlighted rowStart: ANITAF History of tobacco use Passive smoker [facility] Functional Status Date Assessment Result Facility 05-28-2015 Are you deaf, or do you have serious difficulty hearing No 05/28/2015 3:21 PM Stacy Au LPN No [facility] 05-28-2015 Are you blind, or do you have serious difficulty seeing, even when wearing glasses No 05/28/2015 3:21 PM Stacy Au LPN No [facility] 05-28-2015 Do you have serious difficulty walking or climbing stairs No 05/28/2015 3:21 PM Stacy Au LPN No [facility] 05-28-2015 Do you have difficul ty dressing or bathing No 05/28/2015 3:21 PM Stacy Au LPN No [facility] 05-28-2015 Because of a physica l, mental, or emotional condition, do you have difficulty doing errands alone such as visiting a physician's office or shopping No 05/28/2015 3:21 PM EDT Stacy Hooker LPN No [facility] NEGATED: Highlighted row Functional performance Functional status health issues are not documented Disease [facility] Work Phone: Mental Status Date Assessment Result Facility 05-28-2015 Because of a physical, mental, or emotional condition, do you have serious difficulty concentrating, remembering, or making decisions No 05/28/2015 3:21 PM EDT Stacy Hooker LPN No [facility] NEGATED: Highlighted row Cognitive function [Interpretation] Cognitive status health issues are not documented Disease [facility] Work Phone: Clinical Notes 01-20-2013 to 03-12-2025 Telephone Encounter - Mary Uriostegui RN - 03/12/2025 3:39 PM EDTTelephone Encounter - Mary Uriostegui RN - 03/12/2025 3:39 PM EDTTelephone Encounter - Mary Uriostegui RN - 03/12/2025 3:37 PM EDT Note Date & Type Note Facility 03-12-2025 Telephone encounter Note Patient made aware of message. Aware of plan of care. No other questions. Encounter closed. [facility] 03-12-2025 Miscellaneous Notes Patient made aware of message. Aware of plan of care. No other questions. Encounter closed. ----- Message from Chiquita Juarez MD sent at 03/12/2025 3:18 PM EDT ----- Please let pt know his SA is negative, can forgo contraception thanks documented in this encounter [facility] 03-12-2025 Telephone encounter Note ----- Message from Chiquita Juarez MD sent at 03/12/2025 3:18 PM EDT ----- Please let pt know his SA is negative, can forgo contraception thanks [facility] 03-12-2025 Note HNO ID: [id number] Author: YADIRA HER, ? Service: ? Author Type: ? Type: Progress Notes Filed: 03/12/2025 12:59 Note Text: Post Vasectomy Analysis Yadira Taina [facility] 03-12-2025 History of Present illness Narrative Post Vasectomy Analysis Yadira Her documented in this encounter [facility] 11-28-2024 Note HNO ID: [id number] Author: PENNY COOLEY MA Service: ? Author Type: Face And Fill Packer Type: Progress Notes Filed: 11/28/2024 11:46 Note Text: Vasectomy Procedure Pt ID verified with patient: Yes Procedure verified with patient: Yes Procedure confirmed with physician and it support analyst: Yes Sign In History and Physical Exam reviewed and is unchanged. Primary Diagnosis: Voluntary Sterilization Informed Consent Discussed: YES Sign in Communication: Completed Time Out: Team Confirms the Correct Patient, Correct Procedure; Vasectomy, Correct Site and Site Marking, Correct Position (if applicable). Time: 10:30 am Affirmation of Time Out: N/A Sign Out: Sign Out Discussion: Completed Details of Procedure: Encounter for sterilization Physician: Dr. Chiquita Juarez Assist: Penny Cooley MA Pre operative diagnosis: Elective Sterilization Post operative diagnosis: Elective Sterilization Operation: Bilateral Segmental Vasectomy Surgeon: Dr. Chiquita Juarez Anesthesia: Local 2% plain Xylocaine Location: - The patient was placed supine on the table and his external genitalia were prepped and draped in the usual fashion. Next the right vas was manually manipulated and isolated in the sub-Dartos fascial space. The overlying skin was anesthetized with 2% plain Xylocaine local anesthesia at the site where the vas was isolated between the thumb and the index finger. A small scrotal skin incision was made with a sharp dissector. The vas was then dissected out with the sharp dissector until it could be controlled with the C-clamp. The vas was then elevated through the skin incision, and skeletonized with the 15 blade and sharp dissector until a central segment could be isolated. Hemostats were placed proximally and distally and a central segment of the vas was excised and passed of onto the back table. The respective ends of the vas were cauterized and ligated with titanium clips and allowed to retract back into the scrotum. Hemostasis was obtained and the skin incision and dartus muscle was closed with 3.0 chromic catgut suture. An identical procedure was performed on the contra lateral side. The patient tolerated the procedure well and was discharged from the clinic in good condition. - Patient again informed of need to have S/A read negative before discontinuing alternative control. He is capable of paternity until this office confirms otherwise. - Patient instructed on ice packs use , need to limit activity postoperatively, and to report any problems to office. Penny Cooley MA November 28, 2024 [facility] 11-28-2024 History of Present illness Narrative Vasectomy Procedure Pt ID verified with patient: Yes Procedure verified with patient: Yes Procedure confirmed with physician and it support analyst: Yes Sign In History and Physical Exam reviewed and is unchanged. Primary Diagnosis: Voluntary Sterilization Informed Consent Discussed: YES Sign in Communication: Completed Time Out: Team Confirms the Correct Patient, Correct Procedure; Vasectomy, Correct Site and Site Marking, Correct Position (if applicable). Time: 10:30 am Affirmation of Time Out: N/A Sign Out: Sign Out Discussion: Completed Details of Procedure: Encounter for sterilization Physician: Dr. Chiquita Juarez Assist: Penny Cooley MA Pre operative diagnosis: Elective Sterilization Post operative diagnosis: Elective Sterilization Operation: Bilateral Segmental Vasectomy Surgeon: Dr. Chiquita Juarez Anesthesia: Local 2% plain Xylocaine Location: - The patient was placed supine on the table and his external genitalia were prepped and draped in the usual fashion. Next the right vas was manually manipulated and isolated in the sub-Dartos fascial space. The overlying skin was anesthetized with 2% plain Xylocaine local anesthesia at the site where the vas was isolated between the thumb and the index finger. A small scrotal skin incision was made with a sharp dissector. The vas was then dissected out with the sharp dissector until it could be controlled with the C-clamp. The vas was then elevated through the skin incision, and skeletonized with the 15 blade and sharp dissector until a central segment could be isolated. Hemostats were placed proximally and distally and a central segment of the vas was excised and passed of onto the back table. The respective ends of the vas were cauterized and ligated with titanium clips and allowed to retract back into the scrotum. Hemostasis was obtained and the skin incision and dartus muscle was closed with 3.0 chromic catgut suture. An identical procedure was performed on the contra lateral side. The patient tolerated the procedure well and was discharged from the clinic in good condition. - Patient again informed of need to have S/A read negative before discontinuing alternative control. He is capable of paternity until this office confirms otherwise. - Patient instructed on ice packs use , need to limit activity postoperatively, and to report any problems to office. Penny Cooley MA November 28, 2024 Marika Lozoya [id number] 11/28/2024 UNIVERSAL PROTOCOL / SAFETY CHECKLIST Procedure to be Performed: vasectomy Sign In: A Moment of CARE was completed. Personnel directly involved with the procedure wore the appropriate PPE (Personal Protective Equipment). Patient/Surrogate Stated/Verified: PATIENT VERIFIED(optional for EMERGENT procedures): Patient name, Date of , Relevant allergies, and The intended procedure Time Out Communication: Intended patient and procedure match the source documents. Consent documented and matches the intended procedure. Sign Out: SIGN OUT (optional for EMERGENT procedures): All specimen containers correctly labeled. Chiquita Juarez MD HPI: 34 year old male reports for vasectomy. He again confirms he desires permanent sterilization and has no desire to father children in the future. Operation: Vasectomy Anatomic Site: Vas Deferens Approach: Percutaneous Device: None Qualifier: None PMHx/PSHx: see above, otherwise unchanged Rx: No scheduled NSAIDs or blood thinner for past 5 days. ROS: No new or inguinal complaints Labs: None Imaging: None PE: General: Well masculinized, well nourished male Psych: euthymic, NAD Neuro: A&Ox3 exam: see below. Procedure: Vasectomy Patient s identity was confirmed, written informed consent was obtained, and the time out performed before the procedure was initiated The patient was placed in a supine position and the genitalia were prepped and draped in a sterile manner. Examination revealed no scrotal lesions, descended testicles bilaterally without masses and readily palpable vasa deferens. The right scrotal skin and cord structures was anesthetized with 5 cc of 2% lidocaine without epinephrine. A No-scapel technique was used to isolated and remove a small portion of the vas deferens. The vasal ends were secured with clips and hemostasis was ensured. The skin edges were closed with an absorbable suture. The procedure was repeated on the patient s left side. The patient tolerated the procedure well. Postoperative care, limitations, and expectations were reviewed with the patient. He was again instructed to use an alternate form of control until he is notified that his postprocedure semen analysis reveals no sperm. Imp: S/p vasectomy P: 1) Semen Analysis in 3 months 2) post-procedure instructions given to pt with verbalization of understanding. Chiquita Juarez MD documented in this encounter [facility] 11-28-2024 Instructions Penny Cooley MA - 11/28/2024 11:13 AM EST Images from the original note were not included. HOME GOING/DISCHARGE INSTRUCTIONS FOR VASECTOMY PATIENTS Please call the following numbers with any questions or concerns: [facility]: #[phone], and also #[phone] [facility] patients: [phone] M-F 8am-5pm, after hours [phone] ACTIVITIES Avoid strenuous physical exercise and heavy lifting for 10 days (as in bearing down, squatting or heavy weight lifting) NO bouncing, bumping or jarring NO contact sports, no exercising, no golf, no vacations/trips NO swimming, bathing or engaging in sexual activity NO going out to dinner or shopping Avoid lifting children or pets for 7-[address] them on your lap Rest with your legs elevated in a reclining chair Avoid sexual stimulation for ten days. After this time, you may return to sexual activity. A METHOD OF CONTROL should be used until your semen analysis showed negative results for sperm x 2. It is normal to notice blood or a brown color in the semen during the first few weeks after the procedure. You may go back to work in 2-3 days PRECAUTIONS Follow the usual precautions against until the results of the semen analysis are known. If sperm are detected, it may be necessary to continue precautions until another sample is submitted at a later date. You will need to come back for Follow up appointment in the time advised by your Provider with a semen specimen in the cup provided. Make sure to continue precautions until negative specimens by provider. DIET Resume your previous diet MEDICATIONS Use Acetaminophen for mild pain or discomfort Avoid Aspirin or Aspirin-containing products for 5 days WOUND CARE Apply ice packs to the scrotal area over the underwear every 8 hours for the first 1-2 days for not more than 30 minutes at a time. Use a jock strap (scrotal support) for 10 days. A small amount of oozing of blood, tenderness, and mild swelling are expected and should subside in a few days. If a small amount of bleeding occurs apply pressure to the area with a sterile gauze pad for 10 minutes. Do not apply ointments or creams. A small black dot in the scrotum or penis is normal and may subside in a few days. You may shower but do not rub the wound area or apply direct water stream to the scrotum. No soaking in a hot tub, bathtub, or swimming pool for 10 days. Dry the scrotum by blotting with a towel. DO NOT RUB. All stitches will dissolve by themselves; they do not need to be removed. WHEN TO CALL THE DOCTOR If severe pain, or large scrotal swelling or bleeding occur, excessive pain/swelling, purulent discharge from the incision or enlarging lump in the scrotum call the office Oriana([phone] or [phone]) Jennifer ([phone]) or go the hospital emergency room documented in this encounter [facility] 11-28-2024 Note HNO ID: [id number] Author: CHIQUITA JUAREZ MD Service: ? Author Type: Physician Type: Progress Notes Filed: 11/28/2024 10:56 Note Text: Marika Lozoya [id number] 11/28/2024 UNIVERSAL PROTOCOL / SAFETY CHECKLIST Procedure to be Performed: vasectomy Sign In: A Moment of CARE was completed. Personnel directly involved with the procedure wore the appropriate PPE (Personal Protective Equipment). Patient/Surrogate Stated/Verified: PATIENT VERIFIED(optional for EMERGENT procedures): Patient name, Date of , Relevant allergies, and The intended procedure Time Out Communication: Intended patient and procedure match the source documents. Consent documented and matches the intended procedure. Sign Out: SIGN OUT (optional for EMERGENT procedures): All specimen containers correctly labeled. Chiquita Juarez MD HPI: 34 year old male reports for vasectomy. He again confirms he desires permanent sterilization and has no desire to father children in the future. Operation: Vasectomy Anatomic Site: Vas Deferens Approach: Percutaneous Device: None Qualifier: None PMHx/PSHx: see above, otherwise unchanged Rx: No scheduled NSAIDs or blood thinner for past 5 days. ROS: No new or inguinal complaints Labs: None Imaging: None PE: General: Well masculinized, well nourished male Psych: euthymic, NAD Neuro: AANDOx3 exam: see below. Procedure: Vasectomy Patient?s identity was confirmed, written informed consent was obtained, and the time out performed before the procedure was initiated The patient was placed in a supine position and the genitalia were prepped and draped in a sterile manner. Examination revealed no scrotal lesions, descended testicles bilaterally without masses and readily palpable vasa deferens. The right scrotal skin and cord structures was anesthetized with 5 cc of 2% lidocaine without epinephrine. A No-scapel technique was used to isolated and remove a small portion of the vas deferens. The vasal ends were secured with clips and hemostasis was ensured. The skin edges were closed with an absorbable suture. The procedure was repeated on the patient?s left side. The patient tolerated the procedure well. Postoperative care, limitations, and expectations were reviewed with the patient. He was again instructed to use an alternate form of control until he is notified that his postprocedure semen analysis reveals no sperm. Imp: S/p vasectomy P: 1) Semen Analysis in 3 months 2) post-procedure instructions given to pt with verbalization of understanding. Chiquita Juarez MD [facility] 09-23-2024 Note HNO ID: [id number] Author: VANIA VELASQUEZ PA-C Service: ? Author Type: Physician Sausage Cutter Type: Progress Notes Filed: 09/23/2024 11:02 Note Text: Marika Lozoya September 23, 2024 Referred by: CC: Desires permanent sterilization HPI: 34 year old male states he desire permanent surgical sterilization. Reports fathering 2 children and expressly states he does not desire to father children in the future. 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 Depression Hyperthyroidism Mood disorder (HCC) Obesity, Class III, BMI 40-49.9 (morbid obesity) (HCC) Obstructive sleep apnea PAST SURGICAL HISTORY Procedure Laterality Date HAND SURGERY HX 2009 right hand surgery following break KNEE SURGERY HX Left LAPAROSCOPY SURG CHOLECYSTECTOMY 09/14/15 PAST SURGICAL HISTORY OF right hand surgery x2 TONSILLECTOMY PRIMARY/SECONDARY Tonsillectomy Current Outpatient Medications Medication Sig buPROPion XL (WELLBUTRIN XL) 150 mg 24 hr tablet TAKE 1 TABLET BY MOUTH ONCE DAILY IN THE MORNING QUEtiapine (SEROQUEL) 100 mg tablet Take 1 tablet by mouth every 12 hours 6am/6pm. topiramate (TOPAMAX) 50 mg tablet Take 1 tablet by mouth once daily. levothyroxine (SYNTHROID) 100 mcg tablet Take 1 tablet by mouth once daily. No current facility-administered medications for this visit. Allergies: Morphine and Seasonal Allergies Social History Tobacco Use Smoking status: Former Current packs/day: 0.00 Types: Cigars, Cigarettes Quit date: 01/07/2015 Years since quittin.7 Smokeless tobacco: Never Tobacco comments: cigars Vaping Use Vaping status: current everyday user Substances: Nicotine, Flavoring Devices: Disposable Substance Use Topics Alcohol use: Yes Comment: special occassion Drug use: No Types: Marijuana Comment: denies use at this time Occupation/exposures: None ROS: ENMT: No changes in hearing or vision, no nose bleeds or other nasal problems SKIN: Negative for lesions, rash, and itching. ENDOCRINE: Negative for cold or heat intolerance, polyuria, polydipsia and goiter. RESPIRATORY: Negative for cough, wheezing and shortness of breath CARDIOVASCULAR: Negative for chest pain, leg swelling and palpitations GI: Negative for abdominal discomfort, blood in stools or black stools : Negative for dysuria, frequency and incontinence MUSCULOSKELETAL: Negative for joint pain or swelling, back pain, and muscle pain. PSYCH: Negative for sleep disturbance, mood disorder and recent psychosocial stressors. NEURO: Negative All other systems reviewed and are negative. Physical Exam: BP 118/76 (BP Site: Right Arm, BP Position: Sitting, BP Cuff Size: Large Adult) Pulse 100 Temp 36.6 ?C (97.9 ?F) (Temporal) Resp 16 Ht 175.3 cm (5' 9) Wt (!) 144.7 kg (319 lb) SpO2 100% BMI 47.11 kg/m? General appearance: cooperative, pleasant, no acute distress, alert and oriented, well hydrated, well nourished male. Genitourinary: Scrotum: non-tender, non-erythematous, no lesions Testes: descended bilaterally, non-tender,nl size bilaterally, no intratesticular masses bilaterally. Epididymes: Intact bilaterally, non-tender, no masses, palpable vas bilaterally. Penis: non-tender, NL phallus, no lesions, circumcision Yes, NL meatus, no identifiable peyronie's plaque. Assessment: 34 year old male desires vasectomy. The patient attests that he watched and understood the AUA Vasectomy video and read and understood the No-Scalpel Vasectomy pamphlet. He was instructed to stop all NSAIDs, aspirin and other blood thinners 5 days prior to the vasectomy. He was instructed to shave entire front of scrotum to the base of the penis the morning of the vasectomy. Postprocedure care, expectations, and limitations were discussed. He voiced understanding of these instructions and stated his questions were answered. Plan: 1) Proceed to vasectomy scheduling I personally counseled this patient about the following and he voiced understanding: a) Vasectomy is a permanent and irreversible form of sterilization b) 1:1,000 rate of recanalization which can results in the return of sperm into the ejaculate after vasectomy c) Patient must use alternative form of control until he is notified that (more content not included)... [facility] 09-23-2024 History of Present illness Narrative Marika Lozoya September 23, 2024 Referred by: CC: Desires permanent sterilization HPI: 34 year old male states he desire permanent surgical sterilization. Reports fathering 2 children and expressly states he does not desire to father children in the future. 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 Depression Hyperthyroidism Mood disorder (HCC) Obesity, Class III, BMI 40-49.9 (morbid obesity) (HCC) Obstructive sleep apnea PAST SURGICAL HISTORY Procedure Laterality Date HAND SURGERY HX 2009 right hand surgery following break KNEE SURGERY HX Left LAPAROSCOPY SURG CHOLECYSTECTOMY 09/14/15 PAST SURGICAL HISTORY OF right hand surgery x2 TONSILLECTOMY PRIMARY/SECONDARY <AGE 12 01/26/15 Tonsillectomy Current Outpatient Medications Medication Sig buPROPion XL (WELLBUTRIN XL) 150 mg 24 hr tablet TAKE 1 TABLET BY MOUTH ONCE DAILY IN THE MORNING QUEtiapine (SEROQUEL) 100 mg tablet Take 1 tablet by mouth every 12 hours 6am/6pm. topiramate (TOPAMAX) 50 mg tablet Take 1 tablet by mouth once daily. levothyroxine (SYNTHROID) 100 mcg tablet Take 1 tablet by mouth once daily. No current facility-administered medications for this visit. Allergies: Morphine and Seasonal Allergies Social History Tobacco Use Smoking status: Former Current packs/day: 0.00 Types: Cigars, Cigarettes Quit date: 01/07/2015 Years since quittin.7 Smokeless tobacco: Never Tobacco comments: cigars Vaping Use Vaping status: current everyday user Substances: Nicotine, Flavoring Devices: Disposable Substance Use Topics Alcohol use: Yes Comment: special occassion Drug use: No Types: Marijuana Comment: denies use at this time Occupation/exposures: None ROS: ENMT: No changes in hearing or vision, no nose bleeds or other nasal problems SKIN: Negative for lesions, rash, and itching. ENDOCRINE: Negative for cold or heat intolerance, polyuria, polydipsia and goiter. RESPIRATORY: Negative for cough, wheezing and shortness of breath CARDIOVASCULAR: Negative for chest pain, leg swelling and palpitations GI: Negative for abdominal discomfort, blood in stools or black stools : Negative for dysuria, frequency and incontinence MUSCULOSKELETAL: Negative for joint pain or swelling, back pain, and muscle pain. PSYCH: Negative for sleep disturbance, mood disorder and recent psychosocial stressors. NEURO: Negative All other systems reviewed and are negative. Physical Exam: BP 118/76 (BP Site: Right Arm, BP Position: Sitting, BP Cuff Size: Large Adult) Pulse 100 Temp 36.6 C (97.9 F) (Temporal) Resp 16 Ht 175.3 cm (5' 9) Wt (!) 144.7 kg (319 lb) SpO2 100% BMI 47.11 kg/m General appearance: cooperative, pleasant, no acute distress, alert and oriented, well hydrated, well nourished male. Genitourinary: Scrotum: non-tender, non-erythematous, no lesions Testes: descended bilaterally, non-tender,nl size bilaterally, no intratesticular masses bilaterally. Epididymes: Intact bilaterally, non-tender, no masses, palpable vas bilaterally. Penis: non-tender, NL phallus, no lesions, circumcision Yes, NL meatus, no identifiable peyronie's plaque. Assessment: 34 year old male desires vasectomy. The patient attests that he watched and understood the AUA Vasectomy video and read and understood the No-Scalpel Vasectomy pamphlet. He was instructed to stop all NSAIDs, aspirin and other blood thinners 5 days prior to the vasectomy. He was instructed to shave entire front of scrotum to the base of the penis the morning of the vasectomy. Postprocedure care, expectations, and limitations were discussed. He voiced understanding of these instructions and stated his questions were answered. Plan: 1) Proceed to vasectomy scheduling I personally counseled this patient about the following and he voiced understanding: a) Vasectomy is a permanent and irreversible form of sterilization b) 1:1,000 rate of recanalization which can results in the return of sperm into the ejaculate after vasectomy c) Patient must use alternative form of control until he is notified that his postprocedure semen analysis contained no sperm. Consultation requested by Self for an opinion regarding vasectomy and my final recommendations will be communicated back to the requesting physician by way of shared Medical record or letter via [place] mail. Visit duration 30 minutes with approximately 50% of time in counseling RADHA Guo, LIZET GILBERT documented in this encounter [facility] 07-15-2024 Telephone encounter Note Pt called in and asked for hearing test results, unable to acess mycart, I sent a text message link and offered to print out audio graph and mail it, pt agreed to receive graph via mail [facility] 07-15-2024 Miscellaneous Notes Pt called in and asked for hearing test results, unable to acess mycart, I sent a text message link and offered to print out audio graph and mail it, pt agreed to receive graph via mail documented in this encounter [facility] 06-26-2024 Instructions Fernando Reese APRN.PEREZ - 06/26/2024 10:06 AM EDT GENERAL INFORMATION: Pneumonia is a lung infection caused by bacteria, viruses, or bacteria-like germs. It usually cannot be spread to other people. INSTRUCTIONS: 1. If you are given a prescription for antibiotics, take them as ordered by your doctor until they are all gone. 2. Use a cool-mist humidifier or vaporizer to increase air moisture. This will make it easier for you to breathe. Do not use hot steam. 3. Rest in until your temperature is normal (98.6 F or 37 C) and your chest pain and shortness of breath are gone. 4. Slowly restart your normal activities. You may feel weak and tired for up to six weeks. 5. Drink at least one glass of water or other liquid every hour. This will help thin sputum and make it easier to cough up. 6. If you have chest pain, applying a heating pad or warm compresses for 10 to 20 minutes several times a day to the painful area may lessen the pain. 7. Take several deep breaths and then cough frequently during the day. This will help get rid of the infection. 8. You may take medicines that you can buy without a prescription to treat pain and fever. Use cough medicine only if absolutely necessary as coughing helps clear the infection. CONTACT YOUR DOCTOR IF: 1. Your temperature is over 102 F (39 C). 2. Your chest pain, fever or chills do not get better with medicine in 2-3 days. 3. You develop nausea, vomiting or diarrhea. 4. You are coughing up large amounts of bloody sputum. 5. You have any problems that may be related to the medicine that you are taking (such as rash, itching, swelling, or stomach pain). RETURN TO THE EMERGENCY DEPARTMENT IF: 1. You have a lot of trouble breathing or you have dark or bluish fingernails, toenails, or skin. 2. You have a severe headache, neck stiffness, or feel confused. documented in this encounter [facility] 06-26-2024 Note HNO ID: [id number] Author: FERNANDO REESE APRN.CNP Service: ? Author Type: Nurse Practitioner Type: Progress Notes Filed: 06/26/2024 10:12 Note Text: This note was created using [email or web address]. Subjective Marika Lozoya is a 33 year old male. HPI Pt notes cough and vomiting mucous for the last two weeks. Symptoms seem episodic. Nephew had similar symptoms and was diagnosed with bronchitis. Review of Systems Constitutional: Positive for fever. HENT: Positive for congestion and sore throat. Negative for ear pain. Respiratory: Positive for cough. Neurological: Positive for headaches. Objective BP 128/86 Pulse 100 Temp 36.8 ?C (98.3 ?F) Resp 20 Wt (!) 139.6 kg (307 lb 12.2 oz) SpO2 92% BMI 46.11 kg/m? Physical Exam Vitals and nursing note reviewed. Constitutional: General: He is not in acute distress. Appearance: Normal appearance. He is not ill-appearing. HENT: Head: Normocephalic. Mouth/Throat: Mouth: Mucous membranes are moist. Eyes: Conjunctiva/sclera: Conjunctivae normal. Cardiovascular: Rate and Rhythm: Regular rhythm. Tachycardia present. Pulmonary: Effort: Pulmonary effort is normal. Comments: Diminished lung sounds in the bilateral upper lung sandhu with expiratory wheezes Musculoskeletal: General: Normal range of motion. Cervical back: Normal range of motion. Skin: General: Skin is warm and dry. Neurological: General: No focal deficit present. Mental Status: He is alert. Psychiatric: Mood and Affect: Mood normal. Behavior: Behavior normal. Assessment and Plan ASSESSMENT/PLAN: 1. Bacterial pneumonia - ICD9: 482.9, ICD10: J15.9 As patient has had 2 weeks of ongoing symptoms with diminished lung sounds and wheezes my suspicion for pneumonia is high, patient started on doxycycline. Patient was offered cough suppressant which she states he already has at home. Patient is to follow-up with PCP and return for any new or worsening concerns. - DOXYCYCLINE MONOHYDRATE 100 MG TABLET Fernando Reese APRN.CNP [facility] 06-26-2024 History of Present illness Narrative This note was created using [email or web address]. Subjective Marika Lozoya is a 33 year old male. HPI Pt notes cough and vomiting mucous for the last two weeks. Symptoms seem episodic. Nephew had similar symptoms and was diagnosed with bronchitis. Review of Systems Constitutional: Positive for fever. HENT: Positive for congestion and sore throat. Negative for ear pain. Respiratory: Positive for cough. Neurological: Positive for headaches. Objective BP 128/86 Pulse 100 Temp 36.8 C (98.3 F) Resp 20 Wt (!) 139.6 kg (307 lb 12.2 oz) SpO2 92% BMI 46.11 kg/m Physical Exam Vitals and nursing note reviewed. Constitutional: General: He is not in acute distress. Appearance: Normal appearance. He is not ill-appearing. HENT: Head: Normocephalic. Mouth/Throat: Mouth: Mucous membranes are moist. Eyes: Conjunctiva/sclera: Conjunctivae normal. Cardiovascular: Rate and Rhythm: Regular rhythm. Tachycardia present. Pulmonary: Effort: Pulmonary effort is normal. Comments: Diminished lung sounds in the bilateral upper lung sandhu with expiratory wheezes Musculoskeletal: General: Normal range of motion. Cervical back: Normal range of motion. Skin: General: Skin is warm and dry. Neurological: General: No focal deficit present. Mental Status: He is alert. Psychiatric: Mood and Affect: Mood normal. Behavior: Behavior normal. Assessment and Plan ASSESSMENT/PLAN: 1. Bacterial pneumonia - ICD9: 482.9, ICD10: J15.9 As patient has had 2 weeks of ongoing symptoms with diminished lung sounds and wheezes my suspicion for pneumonia is high, patient started on doxycycline. Patient was offered cough suppressant which she states he already has at home. Patient is to follow-up with PCP and return for any new or worsening concerns. - DOXYCYCLINE MONOHYDRATE 100 MG TABLET Fernando Reese APRN.PEREZ documented in this encounter [facility] 05-21-2024 Miscellaneous Notes Radiology Service Progress Note DATE OF SERVICE: May 21, 2024 TIME: 11:21 AM PATIENT IDENTITY VERIFICATION COMPLETED USING TWO (2) STANDARD IDENTIFIERS: Name and Date of confirmed by patient verbally. FALL SCREENING: Has the patient had 2 falls in the last year or 1 fall with injury or currently using an Ambulatory Assistive Device (Walker, Cane, Wheelchair, Crutches, etc.)? No PATIENT GENDER DATA: Male PATIENT RELEVANT IMPLANT DATA REVIEWED: Yes PATIENT PRESENTS WITH AN IMPLANTABLE OR ATTACHED BANK TELLER: No ALLERGIES: Reviewed and unchanged CONTRAST ALLERGY: NO. EXAM: MRI - CONTRAST TYPE: GROUP I OR GROUP III RISK FACTORS: N/A CREATININE: Creatinine Date Value Ref Range Status 02/25/2024 0.96 0.73 - 1.22 mg/dL Final 05/04/2023 1.08 0.73 - 1.22 mg/dL Final 06/20/2022 0.90 0.73 - 1.22 mg/dL Final Estimated Glomerular Filtration Rate Date Value Ref Range Status 02/25/2024 107 >=60 mL/min/1.73m Final Comment: Estimated Glomerular Filtration Rate (eGFR) is calculated using the 2020 CKD-EPI creatinine equation. This equation utilizes serum creatinine, sex, and age as parameters. The creatinine assay has traceable calibration to isotope dilution-mass spectrometry. Refer to KDIGO guidelines for clinical interpretation. In patients with unstable renal function, e.g. those with acute kidney injury, the eGFR may not accurately reflect actual GFR. eGFR- Date Value Ref Range Status 07/28/2015 >60 Final P.O.C.T. RESULTS: N/A May 21, 2024 TREATMENT: N/A PERIPHERAL IV DATA: Ambulatory: A peripheral IV was started in the Left antecubital site with a Angio cath: 22 gauge. RADIOLOGY DEPARTMENT: MR; Exam(s) Completed: Head: Routine Brain SIGNATURE: Yazmin Banda/[facility] PATIENT NAME: Marika Lozoya DATE: May 21, 2024 TIME: 11:21 AM documented in this encounter [facility] 05-21-2024 Progress note Formatting of t his note is different from the original. Radiology Service Progress Note DATE OF SERVICE: May 21, 2024 TIME: 11:21 AM PATIENT IDENTITY VERIFICATION COMPLETED USING TWO (2) STANDARD IDENTIFIERS: Name and Date of confirmed by patient verbally. FALL SCREENING: Has the patient had 2 falls in the last year or 1 fall with injury or currently using an Ambulatory Assistive Device (Walker, Cane, Wheelchair, Crutches, etc.)? No PATIENT GENDER DATA: Male PATIENT RELEVANT IMPLANT DATA REVIEWED: Yes PATIENT PRESENTS WITH AN IMPLANTABLE OR ATTACHED BANK TELLER: No ALLERGIES: Reviewed and unchanged CONTRAST ALLERGY: NO. EXAM: MRI - CONTRAST TYPE: GROUP I OR GROUP III RISK FACTORS: N/A CREATININE: Creatinine Date Value Ref Range Status 02/25/2024 0.96 0.73 - 1.22 mg/dL Final 05/04/2023 1.08 0.73 - 1.22 mg/dL Final 06/20/2022 0.90 0.73 - 1.22 mg/dL Final Estimated Glomerular Filtration Rate Date Value Ref Range Status 02/25/2024 107 >=60 mL/min/1.73m Final Comment: Estimated Glomerular Filtration Rate (eGFR) is calculated using the 2020 CKD-EPI creatinine equation. This equation utilizes serum creatinine, sex, and age as parameters. The creatinine assay has traceable calibration to isotope dilution-mass spectrometry. Refer to KDIGO guidelines for clinical interpretation. In patients with unstable renal function, e.g. those with acute kidney injury, the eGFR may not accurately reflect actual GFR. eGFR- Date Value Ref Range Status 07/28/2015 >60 Final P.O.C.T. RESULTS: N/A May 21, 2024 TREATMENT: N/A PERIPHERAL IV DATA: Ambulatory: A peripheral IV was started in the Left antecubital site with a Angio cath: 22 gauge. RADIOLOGY DEPARTMENT: MR; Exam(s) Completed: Head: Routine Brain SIGNATURE: [facility] PATIENT NAME: Marika Lozoya DATE: May 21, 2024 TIME: 11:21 AM [facility] 05-01-2024 Note HNO ID: [id number] Author: KOURTNEY SHERWOOD APRN.SAUSAGE CUTTER Service: ? Author Type: Nurse Practitioner Type: Progress Notes Filed: 05/02/2024 07:16 Note Text: OTOLARYNGOLOGY-HEAD AND NECK SURGERY CC: Marika Lozoya is a 33 year old male who is self referred for hearing loss . Assessment: Asnhl (asymmetrical sensorineural hearing loss) (primary encounter diagnosis) Tinnitus, left ear Plan: - Asymmetrical sensorineural hearing loss present, left worse than right. Poor reliability per audiology note. 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 Was told by ENT in the past that he had significant hearing loss Left ear is worse than the R overall- certain pitches give him headaches Denies dizziness or room spinning Mild pressure to L ear intermittently Does get some drainage if he gets water in his ears Some popping to L side Asking people to repeat things often Struggles more with alarms and sounds of beeping become more bothersome and sensitive to him ALLERGIES Allergen Reactions Morphine Other: See Comments States was twitching and blacked out Seasonal Allergies Itching Current Outpatient Medications Medication Sig buPROPion XL (WELLBUTRIN XL) 150 mg 24 hr tablet TAKE 1 TABLET BY MOUTH ONCE DAILY IN THE MORNING QUEtiapine (SEROQUEL) 100 mg tablet Take 1 tablet by mouth every 12 hours 6am/6pm. topiramate (TOPAMAX) 50 mg tablet Take 1 tablet by mouth once daily. levothyroxine (SYNTHROID) 100 mcg tablet Take 1 tablet by mouth once daily. traZODone (DESYREL) 50 mg tablet Take 1 tablet by mouth at bedtime as needed. (Patient not taking: Reported on 05/24/2023) lithium carbonate ER 450 mg CR tablet Take 450 mg by mouth once daily. In the evening. (Patient not taking: Reported on 05/24/2023) Echinacea 500 mg cap Take by mouth once each week. (Patient not taking: Reported on 05/24/2023) No current facility-administered medications for this visit. 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) 03/23/2017 Depression Mood disorder (HCC) Obesity, Class III, BMI 40-49.9 (morbid obesity) (HCC) Obstructive sleep apnea PAST SURGICAL HISTORY Procedure Laterality Date HAND SURGERY HX 2009 right hand surgery following break KNEE SURGERY HX Left LAPAROSCOPY SURG CHOLECYSTECTOMY 09/14/15 PAST SURGICAL HISTORY OF right hand surgery x2 TONSILLECTOMY PRIMARY/SECONDARY Tonsillectomy Social History: Social History Tobacco Use Smoking status: Former Packs/day: 0.00 Years: 0.50 Additional pack years: 0.00 Total pack years: 0.00 Types: Cigars, Cigarettes Quit date: 07/09/2015 Years since quittin.8 Smokeless tobacco: Never Tobacco comments: cigars Substance Use Topics Alcohol use: Yes Comment: special occassion Drug use: No Types: Marijuana Comment: denies use at this time FAMILY HISTORY Problem Relation Age of Onset Breast Cancer Maternal Grandmother Cancer Maternal Grandmother Stroke Maternal Grandmother Heart Father Hypertension Maternal Grandfather Hypertension Paternal Grandmother Diabetes Mother Stroke Mother other (bells palsy) Mother PHYSICAL EXAM: On physical examination Marika Lozoya is a well-developed, well nourished male. His speech is normal and his voice is clear. Mental status revealed patient to be alert and oriented. Mood is appropriate. Details of the physical examination: CRANIAL NERVE EXAM: II: Pupillary reflexes normal III, IV, : EOM normal V: 1,2,3: normal sensation VII: Normal strength in all divisions. IX, X: normal voice, palatal elevation and sensation XI: Shoulder strength normal XII: Tongue mobility normal HEAD AND FACE: Physical examination of the head, neck, external nose, external ears, mouth and face fails to demonstrate any significant abnormality or asymmetry to critical face to face observation. Skin and scalp are normal. EARS: RT Canal: patent RT Drum: intact RT Pneumotoscopy: mobile LT Canal: patent LT Drum: intact LT Pneumotoscopy: mobile NOSE: Examination of the nasal cavity revealed a septum which is midline. The mucosa is pink, and the visible turbinates are normal on anterior rhinoscopy. There is no purulence or polyps. MASTICATION: The teeth appear normal. The lips and gums are without lesions. ORAL CAVITY AND OROPHARYNX: The oral mucosa, hard and soft palates, tongue, tonsil area, and posterior pharyngeal wall are without lesions. LARYNX: Using the mirror for indirect laryngoscopy, the base of tongue, epiglottis, false vocal folds, and true vocal folds are without lesions, and the t (more content not included)... [facility] 05-01-2024 History of Present illness Narrative Images from the original note were not included. OTOLARYNGOLOGY-HEAD AND NECK SURGERY CC: Marika Lozoya is a 33 year old male who is self referred for hearing loss . Assessment: Asnhl (asymmetrical sensorineural hearing loss) (primary encounter diagnosis) Tinnitus, left ear Plan: - Asymmetrical sensorineural hearing loss present, left worse than right. 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 Was told by ENT in the past that he had significant hearing loss Left ear is worse than the R overall- certain pitches give him headaches Denies dizziness or room spinning Mild pressure to L ear intermittently Does get some drainage if he gets water in his ears Some popping to L side Asking people to repeat things often Struggles more with alarms and sounds of beeping become more bothersome and sensitive to him ALLERGIES Allergen Reactions Morphine Other: See Comments States was twitching and blacked out Seasonal Allergies Itching Current Outpatient Medications Medication Sig buPROPion XL (WELLBUTRIN XL) 150 mg 24 hr tablet TAKE 1 TABLET BY MOUTH ONCE DAILY IN THE MORNING QUEtiapine (SEROQUEL) 100 mg tablet Take 1 tablet by mouth every 12 hours 6am/6pm. topiramate (TOPAMAX) 50 mg tablet Take 1 tablet by mouth once daily. levothyroxine (SYNTHROID) 100 mcg tablet Take 1 tablet by mouth once daily. traZODone (DESYREL) 50 mg tablet Take 1 tablet by mouth at bedtime as needed. (Patient not taking: Reported on 05/24/2023) lithium carbonate ER 450 mg CR tablet Take 450 mg by mouth once daily. In the evening. (Patient not taking: Reported on 05/24/2023) Echinacea 500 mg cap Take by mouth once each week. (Patient not taking: Reported on 05/24/2023) No current facility-administered medications for this visit. 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) 03/23/2017 Depression Mood disorder (HCC) Obesity, Class III, BMI 40-49.9 (morbid obesity) (HCC) Obstructive sleep apnea PAST SURGICAL HISTORY Procedure Laterality Date HAND SURGERY HX 2009 right hand surgery following break KNEE SURGERY HX Left LAPAROSCOPY SURG CHOLECYSTECTOMY 09/14/15 PAST SURGICAL HISTORY OF right hand surgery x2 TONSILLECTOMY PRIMARY/SECONDARY <AGE 12 01/26/15 Tonsillectomy Social History: Social History Tobacco Use Smoking status: Former Packs/day: 0.00 Years: 0.50 Additional pack years: 0.00 Total pack years: 0.00 Types: Cigars, Cigarettes Quit date: 07/09/2015 Years since quittin.8 Smokeless tobacco: Never Tobacco comments: cigars Substance Use Topics Alcohol use: Yes Comment: special occassion Drug use: No Types: Marijuana Comment: denies use at this time FAMILY HISTORY Problem Relation Age of Onset Breast Cancer Maternal Grandmother Cancer Maternal Grandmother Stroke Maternal Grandmother Heart Father Hypertension Maternal Grandfather Hypertension Paternal Grandmother Diabetes Mother Stroke Mother other (bells palsy) Mother PHYSICAL EXAM: On physical examination Marika Lozoya is a well-developed, well nourished male. His speech is normal and his voice is clear. Mental status revealed patient to be alert and oriented. Mood is appropriate. Details of the physical examination: CRANIAL NERVE EXAM: II: Pupillary reflexes normal III, IV, : EOM normal V: 1,2,3: normal sensation VII: Normal strength in all divisions. IX, X: normal voice, palatal elevation and sensation XI: Shoulder strength normal XII: Tongue mobility normal HEAD AND FACE: Physical examination of the head, neck, external nose, external ears, mouth and face fails to demonstrate any significant abnormality or asymmetry to critical face to face observation. Skin and scalp are normal. EARS: RT Canal: patent RT Drum: intact RT Pneumotoscopy: mobile LT Canal: patent LT Drum: intact LT Pneumotoscopy: mobile NOSE: Examination of the nasal cavity revealed a septum which is midline. The mucosa is pink, and the visible turbinates are normal on anterior rhinoscopy. There is no purulence or polyps. MASTICATION: The teeth appear normal. The lips and gums are without lesions. ORAL CAVITY AND OROPHARYNX: The oral mucosa, hard and soft palates, tongue, tonsil area, and posterior pharyngeal wall are without lesions. LARYNX: Using the mirror for indirect laryngoscopy, the base of tongue, epiglottis, false vocal folds, and true vocal folds are without lesions, and the true vocal folds move normally bilaterally. NECK: The neck appears symmetric without scars. On palpation, there are no masses or lymphadenopathy. The thyroid is not palpable and was free of masses. No salivary gland masses or hypertrophy is noted. Kourtney Sherwood APRN.SAUSAGE CUTTER documented in this encounter [facility] 05-01-2024 Nurse Note Tobacco Use: 0 packs/day, for .5 years. Quit 07/09/2015. Types: Cigars, Cigarettes Was smoking cessation packet given? N/A - Patient is a non-smoker or quit >1 year ago. Was a referral initiated?N/A Patient is a non-smoker [facility] 05-01-2024 Nurse Note Tobacco Use: 0 packs/day, for .5 years. Quit 07/09/2015. Types: Cigars, Cigarettes Was smoking cessation packet given? N/A - Patient is a non-smoker or quit >1 year ago. Was a referral initiated?N/A Patient is a non-smoker documented in this encounter [facility] 05-01-2024 History of Present illness Narrative Head and Neck [place] AUDIOLOGIC EVALUATION REPORT Name: Marika Lozoya [facility]#: [id number] Date of Service: 05/01/2024 Date of : 1990 Age: [age] year old Referred by: SELF Referred for: Evaluation of suspected change in hearing, tinnitus, or balance. Referral documented: No referral on file Patient's major complaints: Reduced hearing in both ears, Tinnitus left ear greater than right ear, Pressure/fullness in both ears Marika Lozoya was seen for an initial audiologic evaluation with complaints of hearing loss in the left ear greater than the right ear. 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 Patient reported he feels he has had regular issue with his ears since that incident. Today patient reported reduced hearing and aural fullness in the left ear, as well as tinnitus greater in the left ear than the right ear. Patient reported history of occupational noise exposure. Today patient denied otalgia, otorrhea, dizziness, history of otologic surgery or ototoxicity. 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 Inconsistent responses when using ascending method and traditional thresholding method. Also inconsistency noted across transducers (headphones vs inserts). Pure tones are in poor agreement with speech testing, as all speech measurements were able to be obtained within normal limits. AUDIOLOGIC EVALUATION Following is a brief interpretation of the obtained findings from the audiologic evaluation. Refer to the Auditory Test Record for complete audiometric results. The patient was counseled about the test findings and appropriate audiologic recommendations were made. SUMMARY: See procedures tab for audiometric results. OTOSCOPY RIGHT EAR: Otoscopic inspection revealed ear canal was clear with an identifiable cone of light. LEFT EAR: Otoscopic inspection revealed ear canal was clear with an identifiable cone of light. TYMPANOMETRY Description of procedure: This test is an objective evaluation of middle ear function. CPT code: 52850 RIGHT EAR: Normal ME function. LEFT EAR: Normal ME function. ACOUSTIC REFLEXES Description of procedure: This test is an objective measure of auditory and facial nerve pathways. CPT code: 34495, 75609 RIGHT EAR PROBE EAR: (ipsi right stimulus ear; contralateral left stimulus ear): Acoustic Reflex Pattern Did not test Acoustic Reflex Decay (left stimulus ear): Did not test. LEFT EAR PROBE EAR: (ipsi left stimulus ear; contralateral right stimulus ear): Acoustic Reflex Pattern Did not test Acoustic Reflex Decay (right stimulus ear):Did not test. PURE TONE AUDIOMETRY AND SPEECH TESTING Description of procedure: This test is an objective evaluation hearing sensitivity via air and bone conduction and speech recognition testing. CPT code: 20855 RIGHT EAR: Hearing Sensitivity: Pure tone thresholds were obtaining in the essentially mild hearing loss range, however speech testing was able to be obtained within normal limits. Cannot rule out non-organic hearing loss. Word Recognition Score: Excellent (90%). WRS is consistent with hearing sensitivity. Words were presented at 35 dB HL is below (less than or equal to 40 dB HL) intensity level for average conversational speech. The NU-6 Ordered by Difficulty Word List (10 words) was used for testing. DPOAEs (7250-2934 Hz): Essentially present. LEFT EAR: Hearing Sensitivity: Pure tone thresholds were obtaining in the mild to moderate hearing loss range, however speech testing was able to be obtained within normal limits. Cannot rule out non-organic hearing loss. Word Recognition Score: Excellent (90%). WRS is consistent with hearing sensitivity. Words were presented at 35 dB HL is below (less than or equal to 40 dB HL) intensity level for average conversational speech. The NU-6 Ordered by Difficulty Word List (10 words) was used for testing. DPOAEs (3930-9329 Hz): Present and robust at all frequencies tested. 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 Inconsistent responses when using ascending method and traditional thresholding method. Also inconsistency noted across transducers (headphones vs inserts). Pure tones are in poor agreement with speech testing, as all speech measurements were able to be obtained within normal limits. RECOMMENDATIONS * Continue medical follow-up with Kourtney Sherwood CNP. * True hearing thresholds cannot be determined based on today's testing. Discussed testing inconsistency with patient and counseled that repeat testing would be needed if he wished to proceed with determining his true hearing thresholds. However, patient was counseled that he does not meet Medicaid criteria to pursue hearing aids based on testing today. * Re-evaluation as medically indicated or if a change in hearing is noted. Hina Zurita, [facility] Clinical Pediatric Radiologist copied to: Kourtney Sherowod CNP CAMEJO Abbrev- iation Definition Degree of hearing sensitivity dB range WNL within normal limits WNL 0 - 20 SNHL sensorineural hearing loss Mild 20-40 CHL conductive hearing loss Moderate 40-55 MHL mixed hearing loss Moderately-Severe 55-70 WRS word recognition score Severe 70-90 ME middle ear Profound 90 + TM tympanic membrane documented in this encounter [facility] 05-01-2024 Note HNO ID: [id number] Author: DAHLIA HOLCOMB AUD Service: ? Author Type: Pediatric Radiologist Type: Progress Notes Filed: 05/01/2024 15:23 Note Text: Head and Neck [place] AUDIOLOGIC EVALUATION REPORT Name: Marika Lozoya [facility]#: [id number] Date of Service: 05/01/2024 Date of : 1990 Age: [age] year old Referred by: SELF Referred for: Evaluation of suspected change in hearing, tinnitus, or balance. Referral documented: No referral on file Patient's major complaints: Reduced hearing in both ears, Tinnitus left ear greater than right ear, Pressure/fullness in both ears Marika Lozoya was seen for an initial audiologic evaluation with complaints of hearing loss in the left ear greater than the right ear. 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 Patient reported he feels he has had regular issue with his ears since that incident. Today patient reported reduced hearing and aural fullness in the left ear, as well as tinnitus greater in the left ear than the right ear. Patient reported history of occupational noise exposure. Today patient denied otalgia, otorrhea, dizziness, history of otologic surgery or ototoxicity. 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 Inconsistent responses when using ascending method and traditional thresholding method. Also inconsistency noted across transducers (headphones vs inserts). Pure tones are in poor agreement with speech testing, as all speech measurements were able to be obtained within normal limits. AUDIOLOGIC EVALUATION Following is a brief interpretation of the obtained findings from the audiologic evaluation. Refer to the Auditory Test Record for complete audiometric results. The patient was counseled about the test findings and appropriate audiologic recommendations were made. SUMMARY: See procedures tab for audiometric results. OTOSCOPY RIGHT EAR: Otoscopic inspection revealed ear canal was clear with an identifiable cone of light. LEFT EAR: Otoscopic inspection revealed ear canal was clear with an identifiable cone of light. TYMPANOMETRY Description of procedure: This test is an objective evaluation of middle ear function. CPT code: 31945 RIGHT EAR: Normal ME function. LEFT EAR: Normal ME function. ACOUSTIC REFLEXES Description of procedure: This test is an objective measure of auditory and facial nerve pathways. CPT code: 85452, 45689 RIGHT EAR PROBE EAR: (ipsi right stimulus ear; contralateral left stimulus ear): Acoustic Reflex Pattern Did not test Acoustic Reflex Decay (left stimulus ear): Did not test. LEFT EAR PROBE EAR: (ipsi left stimulus ear; contralateral right stimulus ear): Acoustic Reflex Pattern Did not test Acoustic Reflex Decay (right stimulus ear):Did not test. PURE TONE AUDIOMETRY AND SPEECH TESTING Description of procedure: This test is an objective evaluation hearing sensitivity via air and bone conduction and speech recognition testing. CPT code: 07117 RIGHT EAR: Hearing Sensitivity: Pure tone thresholds were obtaining in the essentially mild hearing loss range, however speech testing was able to be obtained within normal limits. Cannot rule out non-organic hearing loss. Word Recognition Score: Excellent (90%). WRS is consistent with hearing sensitivity. Words were presented at 35 dB HL is below (less than or equal to 40 dB HL) intensity level for average conversational speech. The NU-6 Ordered by Difficulty Word List (10 words) was used for testing. DPOAEs (9198-2760 Hz): Essentially present. LEFT EAR: Hearing Sensitivity: Pure tone thresholds were obtaining in the mild to moderate hearing loss range, however speech testing was able to be obtained within normal limits. Cannot rule out non-organic hearing loss. Word Recognition Score: Excellent (90%). WRS is consistent with hearing sensitivity. Words were presented at 35 dB HL is below (less than or equal to 40 dB HL) intensity level for average conversational speech. The NU-6 Ordered by Difficulty Word List (10 words) was used for testing. DPOAEs (4396-6203 Hz): Present and robust at all frequencies tested. 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 Inconsistent responses when using ascending method and traditional thresholding method. Also inconsistency noted across transducers (headphones vs inserts). Pure tones are in poor agreement with speech testing, as all speech measurements were able to be obtained within normal limits. RECOMMENDATIONS * Continue medical follow-up with Kourtney Sherwood CNP. * True hearing thresholds cannot be determined based on today's testing. Discussed testing inconsistency with patient and counseled that repeat testing would be needed if he wished to proceed with determining his true hearing thresholds. However, p (more content not included)... [facility] 03-03-2024 History of Present illness Narrative Radiology Service Progress Note PATIENT NAME: Marika Lozoya DATE OF SERVICE: March 03, 2024 TIME: 9:48 AM PATIENT IDENTITY VERIFICATION COMPLETED USING TWO (2) IDENTIFIERS: Name and Date of confirmed by patient verbally. FALL SCREENING: Has the patient had 2 falls in the last year or 1 fall with injury or currently using an Ambulatory Assistive Device (Walker, Cane, Wheelchair, Crutches, etc.)? No PATIENT GENDER DATA: Male PATIENT RELEVANT IMPLANT DATA REVIEWED: Yes PATIENT PRESENTS WITH AN IMPLANTABLE OR ATTACHED BANK TELLER: No RADIOLOGY DEPARTMENT: General X-ray: Exam(s) Completed: Spine X-Ray(s): Lumbar AP / LAT / L5-S1 PERIPHERAL IV DATA: Not applicable SIGNED BY: RT Kenneth(R) March 03, 2024 9:48 AM documented in this encounter [facility] 01-21-2024 History of Present illness Narrative SUBJECTIVE: Marika Lozoya is a 33 year old male. Who presents today with concerns of pink eye. This started yesterday am. The left eye is red and the upper and lower eye lid are red also. The eye itches and he has been rubbing it. He has not had any vision changes or pain in the eye. He has no FB sensation. His eye has been goopy. He has no exposure to anyone with pink eye. 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) 03/23/2017 Depression Mood disorder (HCC) Obesity, Class III, BMI 40-49.9 (morbid obesity) (HCC) Obstructive sleep apnea FAMILY HISTORY Problem Relation Age of Onset Breast Cancer Maternal Grandmother Cancer Maternal Grandmother Stroke Maternal Grandmother Heart Father Hypertension Maternal Grandfather Hypertension Paternal Grandmother Diabetes Mother Stroke Mother other (bells palsy) Mother Social History Tobacco Use Smoking status: Former Packs/day: 0.00 Years: 0.50 Additional pack years: 0.00 Total pack years: 0.00 Types: Cigars, Cigarettes Quit date: 07/09/2015 Years since quittin.5 Smokeless tobacco: Never Tobacco comments: cigars Substance Use Topics Alcohol use: Yes Comment: special occassion Drug use: No Types: Marijuana Comment: denies use at this time ALLERGIES Allergen Reactions Morphine Other: See Comments States was twitching and blacked out Seasonal Allergies Itching Current Outpatient Medications Medication Sig Dispense Refill QUEtiapine (SEROQUEL) 100 mg tablet Take 1 tablet by mouth every 12 hours 6am/6pm. topiramate (TOPAMAX) 50 mg tablet Take 1 tablet by mouth once daily. levothyroxine (SYNTHROID) 100 mcg tablet Take 1 tablet by mouth once daily. 90 tablet 0 buPROPion XL (WELLBUTRIN XL) 150 mg 24 hr tablet TAKE 1 TABLET BY MOUTH ONCE DAILY IN THE MORNING (Patient not taking: Reported on 01/21/2024) traZODone (DESYREL) 50 mg tablet Take 1 tablet by mouth at bedtime as needed. (Patient not taking: Reported on 05/24/2023) lithium carbonate ER 450 mg CR tablet Take 450 mg by mouth once daily. In the evening. (Patient not taking: Reported on 05/24/2023) Echinacea 500 mg cap Take by mouth once each week. (Patient not taking: Reported on 05/24/2023) 0 No current facility-administered medications for this visit. OBJECTIVE: BP 130/68 Pulse 110 Temp 36.9 C (98.4 F) Resp 20 Wt (!) 141.5 kg (311 lb 15.2 oz) SpO2 98% BMI 46.74 kg/m ROS all other systems reviewed and are negative Physical Exam Constitutional: Well developed, well nourished, NAD, A&O X3. ENT: Head is atraumatic, airway patent, mucosal membranes moist. Eyes: EOMI, PERRL, no drainage, vision unchanged left conjunctive is red pupils equal round and reactive to light full range of motion without pain upper and lower eyelids are red and swollen most likely from him rubbing his eyes. Respiratory: : no CVA tenderness MS: no swelling, tenderness or deformity in upper or lower extremities, no midline tenderness in cervical, thoracic or lumbar spine. Neuro: strength sensation and coordination intact. CN II-XII grossly intact, Skin: warm and dry with out rash, lesion or ecchymosis on exposed skin Psych: alert appropriate, speech clear MDM It was a pleasure to take care of Marika Lozoya today. The patient will be treated today for a bacterial conjunctivitis with an antibiotic eyedrop. I did explain how to use the medication. He is contagious for the first 24 hours after starting the medication. He will wash his hands frequently. I have instructed him to use cool compresses to his eye instead of rubbing the eyes. I do believe the swelling in his upper and lower eyelid is from rubbing his eyes and not a periorbital cellulitis. Patient has verbalized understanding of plan of care and is agreeable Patient will follow up with family physician. They may return to the Urgent Care or go to the ER for worsening symptoms or concerns. Patient verbalized understanding of plan of care and is in agreement. ASSESSMENT/PLAN: 1. [place] eye disease of left eye - ICD9: 372.03, ICD10: H10.022 - POLYMYXIN B SULFATE 10,000 UNIT-TRIMETHOPRIM 1 MG/ML EYE DROPS Mira Queen APRN.SAUSAGE CUTTER documented in this encounter [facility] 10-11-2020 Note History & Physical R eviewed: I have reviewed the History and Physical dated: 21-Sep-2020 History and Physical reviewed and relevant findings noted. Patient examined to review pertinent physical findings.: No significant changes Home Medications Reviewed: no changes noted Allergies Reviewed: no changes noted ERAS (Enhanced Recovery After Surgery): ERAS Patient: no Consent: COVID-19 Consent: COVID-19 Risk ConsentSurgeon has reviewed camejo risks related to the risk of mariano COVID-19 and if they contract COVID-19 what the risks are. Signatures/Attestation: Note Completion: Attending Provider Inpatient Certification StatementObservation patient/other outpatient visits Electronic Signatures: Rita Carrillo () (Signed 11-Oct-2020 10:49) Authored: History & Physical Reviewed, ERAS, Consent, Note Completion Last Updated: 11-Oct-2020 10:49 by Rita Carrillo () [facility] 01-20-2013 History of Past i llness Narrative Problem Noted Date Diagnosed Date Resolved Date Unspecified sleep apnea 01/20/201310/05 documented as of this encounter (statuses as of 01/21/2024) [facility] noteNo assessment information availableWOhio[facility] Work Phone: Evaluation note* Diagnosis [place] eye disease of left eye- Primary documented in this encounter [facility] note* Diagnosis ASNHL (asymmetrical sensorineural hearing loss)- Primary Sensorineural hearing loss, asymmetrical Tinnitus, left ear documented in this encounter [facility] note* Diagnosis Abnormal auditory perception of both ears- Primary Tinnitus, bilateral Unspecified tinnitus Ear pressure, bilateral documented in this encounter [facility] note* Diagnosis ASNHL (asymmetrical sensorineural hearing loss) Sensorineural hearing loss, asymmetrical Tinnitus, left ear documented in this encounter [facility] note* Diagnosis Bacterial pneumonia- Primary Bacterial pneumonia, unspecified documented in this encounter [facility] note* Diagnosis Vasectomy evaluation- Primary Other general counseling and advice for contraceptive management documented in this encounter [facility] note* Diagnosis Encounter for sterilization- Primary Sterilization documented in this encounter [facility] note* Diagnosis Encounter for sterilization Sterilization documented in this encounter [facility] note* Diagnosis Onset Date Resolution Status Admit Date SURESH (obstructive sleep apnea) acute June 19, 2025 8:54am [facility] Work Phone: History of Present illness Narrative* Reports polyuria and polydipsia for several weeks, concerned he has diabetes. Urinates 2-3x nightly. No hesitancy, slow stream, urgency, dysuria or hematuria. * Continues to take lithium for Bipolar * is , [facility] in November [facility] Work Phone: Reason for referral (narrative)No reason for referral information availableWOhioHealth [facility] Work Phone: Summary Purpose Family History No Family History Records Found Mother Name Dates Details Family history of essential hypertension(V17.49, Z82.49) Status:Active Family history of malignant neoplasm of breast(V16.3, Z80.3) Status:Active Father Name Dates Details Family history of essential hypertension(V17.49, Z82.49) Status:Active Family history of malignant neoplasm of colon(V16.0, Z80.0) Status:Active Unknown Family Member Name Dates Details Family history of essential hypertension: Mother, Father(V17.49, Z82.49) Status:Active Family history of malignant neoplasm of breast: Mother(V16.3, Z80.3) Status:Active Family history of malignant neoplasm of colon: Father(V16.0, Z80.0) Status:Active Unknown Family Member Name Dates Details Family history of essential hypertension: Mother, Father(V17.49, Z82.49) Status:Active Family history of malignant neoplasm of breast: Mother(V16.3, Z80.3) Status:Active Family history of malignant neoplasm of colon: Father(V16.0, Z80.0) Status:Active Unknown Family Member Name Dates Details Family history of essential hypertension: Mother, Father(V17.49, Z82.49) Status:Active Family history of malignant neoplasm of breast: Mother(V16.3, Z80.3) Status:Active Family history of malignant neoplasm of colon: Father(V16.0, Z80.0) Status:Active Advance Directives No Advanced Directives Records Found Advance Directive Response Recorded Date/ Time Living Will No May 05, 2022 1 0:50am Power of Manager Emergency No May 05, 2022 10:50am Advance Directive Response Recorded Date/ Time Living Will No July 21, 2022 6:05pm Power of Manager Emergency No July 6:05pm Advance Directive Response Recorded Date/ Time Living Will No July 21, 2022 6:05pm Do you have a [facility] Power of Manager Emergency? No July 21, 2022 6:05pm Chief Complaint 6 mo f/u.6 mo f/u. Chief Complaint and Reason for Visit Chief Complaint UPPER Chief Complaint Admit Date LUMBAR RADICULOPATHY. RX HERE November 252024 3:30pm Chief Complaint Admit Date HYPERSOMNIA June 03, 2025 7:42 pm Chief Complaint Admit Date HYPERSOMNIA June 03, 2025 7:42 pm Sleep problems June 19, 2025 8: 54am Reason for Visit Admit Date SURESH (obstructive sleep apnea) June 8:54am Reason for Referral Specialty Diagnoses / Procedures Referred By Contac t Referred To Contact MR IMAGING Diagnoses ASNHL (asymmetrical sensorineural hearing loss) Tinnitus, left ear Procedures MRI BRAIN WO/W IVCON MRI BRAIN BRAIN STEM W/O W/CONTRAST MATERIAL Kourtney Sherwood, BURNER TECHNICIAN.SAUSAGE CUTTER [address] [place] [phone] [facility] [place] [address] Referral ID Status Reason Start Date Expiration Date Visits Requested Visits Authorized [id number] Additional Clinical Info Needed Auto-Generat ed Referral 05/01/2024 05/31/2025 1 1 Specialty Diagnoses / Procedures Referred By Contac t Referred To Contact Procedures HEARING TEST/AUDIOGRAM COMPRE AUDIOMETRY THRESHOLD EVAL SP RECOGNIJ [address] [place] [address] [facility] [address] [place] [address] Referral ID Status Reason Start Date Expiration Date Visits Requested Visits Authorized [id number] Pending Review Auto-Generat ed Referral 05/01/2024 05/02/2025 1 1 Additional Source Comments (unrecognized sect ion and content) No Status Records FoundNo Status Records FoundNo Status Records FoundNo Status Records FoundNo Status Records FoundNo Status Records FoundNo Status Records Found INFORMATION SOURCE (unrecogn ized section and content) DATE CREATED AUTHOR 12/24/2018 [facility] DATE CREATED AUTHOR AUTHOR'S ORGANIZ ATION 03/30/2021 [facility] DATE CREATED AUTHOR AUTHOR'S ORGANIZ ATION 08/02/2021 [facility] DATE CREATED AUTHOR AUTHOR'S ORGANIZ ATION 08/06/2021 [facility] DATE CREATED AUTHOR AUTHOR'S ORGANIZ ATION 05/25/2024 [facility] DATE CREATED AUTHOR AUTHOR'S ORGANIZ ATION 03/14/2025 [facility] DATE CREATED AUTHOR AUTHOR'S ORGANIZ ATION 06/25/2025 [place] <item> Privacy Markings (unrecogniz ed section and content) Section Author: Nedra Daniel PROHIBITION ON REDISCLOSURE OF CONFIDENTIAL INFORMATION This notice accompanies a disclosure of information concerning a client made to you with the consent of such client. Goals (unrecognized section and content) Goals may be documented in a n alternate sectionGoals may be documented in an alternate sectionGoals may be documented in an alternate sectionGoals may be documented in an alternate sectionGoals may be documented in an alternate sectionGoals may be documented in an alternate section Source Comments (unrecognize d section and content) In the event this informatio n is protected by the Federal Confidentiality of Alcohol and Drug Abuse Patient Records regulations: The Federal rules restrict any use of the information to criminally investigate or prosecute any alcohol or drug abuse patient.[facility] Hospital[facility] the event this information is protected by the Federal Confidentiality of Alcohol and Drug Abuse Patient Records regulations: The Federal rules restrict any use of the information to criminally investigate or prosecute any alcohol or drug abuse patient.[facility] HospitalIn the event this information is protected by the Federal Confidentiality of Alcohol and Drug Abuse Patient Records regulations: The Federal rules restrict any use of the information to criminally investigate or prosecute any alcohol or drug abuse patient.[facility] HospitalIn the event this information is protected by the Federal Confidentiality of Alcohol and Drug Abuse Patient Records regulations: The Federal rules restrict any use of the information to criminally investigate or prosecute any alcohol or drug abuse patient.[facility] HospitalIn the event this information is protected by the Federal Confidentiality of Alcohol and Drug Abuse Patient Records regulations: The Federal rules restrict any use of the information to criminally investigate or prosecute any alcohol or drug abuse patient.[facility] HospitalIn the event this information is protected by the Federal Confidentiality of Alcohol and Drug Abuse Patient Records regulations: The Federal rules restrict any use of the information to criminally investigate or prosecute any alcohol or drug abuse patient.[facility] HospitalIn the event this information is protected by the Federal Confidentiality of Alcohol and Drug Abuse Patient Records regulations: The Federal rules restrict any use of the information to criminally investigate or prosecute any alcohol or drug abuse patient.[facility] HospitalIn the event this information is protected by the Federal Confidentiality of Alcohol and Drug Abuse Patient Records regulations: The Federal rules restrict any use of the information to criminally investigate or prosecute any alcohol or drug abuse patient.[facility] HospitalIn the event this information is protected by the Federal Confidentiality of Alcohol and Drug Abuse Patient Records regulations: The Federal rules restrict any use of the information to criminally investigate or prosecute any alcohol or drug abuse patient.[facility] HospitalIn the event this information is protected by the Federal Confidentiality of Alcohol and Drug Abuse Patient Records regulations: The Federal rules restrict any use of the information to criminally investigate or prosecute any alcohol or drug abuse patient.[facility] HospitalIn the event this information is protected by the Federal Confidentiality of Alcohol and Drug Abuse Patient Records regulations: The Federal rules restrict any use of the information to criminally investigate or prosecute any alcohol or drug abuse patient.[facility] Reason for Visit (unrecogniz ed section and content) Reason Comments Eye Problem Possible pink eye in left eye x 1 day Reason Comments New Patient Hearing loss Reason Comments Hearing Loss Specialty Diagnoses / Procedures Referred By Jayson wilkes Referred To Contact MR IMAGING Diagnoses ASNHL (asymmetrical sensorineural hearing loss) Tinnitus, left ear Procedures MRI BRAIN WO/W IVCON MRI BRAIN BRAIN STEM W/O W/CONTRAST MATERIAL Kourtney Sherwood, BURNER TECHNICIAN.SAUSAGE CUTTER [address] [place] [phone] [facility] [place] [address] Referral ID Status Reason Start Date Expiration Date V isits Requested Visits Authorized [id number] Closed Auto-Generate d Referral 05/05/2024 07/04/2024 1 1 Reason Comments Cough Chest congestion, fe vers intermittent x2 weeks Reason Comments New Patient Vasectomy-1 Reason Comments Sterilization (Elective) Reason Onset Date Comments Results 03/12/2025 Care Teams (unrecognized sec tion and content) Vineyard Tender Relationship Specialty Start Date End Date Clinic, Jessica Valiente [address] [place] [address] PCP - General 01/21/24 Juliette Zamorano NP [address] [place] [phone] Referring Family Medicine 05/04/23 Vineyard Tender Relationship Specialty Start Date End Date [employer], Jessica Valiente [address] [place] [address] PCP - General 01/21/24 Juliette Zamorano NP [address] [place] [phone] Referring Family Medicine 05/04/23 Milton Schumacher [address] [place] [address] Referring Ent - Otolaryngology 03/04/24 Vineyard Tender Relationship Specialty Start Date End Date Clinic, Jessica Valiente [address] [facility] [place] [address] PCP - General 01/21/24 Juliette Zamorano NP [address] [place] [address] Referring Family Medicine 05/04/23 Milton Schumacher [address] [facility] [place] [phone] Referring Ent - Otolaryngology 03/04/24 Vineyard Tender Relationship Specialty Start Date End Date Clinic, Jessica Isaacs [facility] [place] [address] PCP - General 01/21/24 Juliette Zamorano NP [address] [facility] [place] [address] Referring Family Medicine 05/04/23 Milton Schumacher [address] [place] [address] Referring Ent - Otolaryngology 03/04/24 Vineyard Tender Relationship Specialty Start Date End Date Clinic, Jessica Valiente [address] [facility] [place] [address] PCP - General 01/21/24 Juliette Zamorano NP [address] [facility] [place] [address] Referring Family Medicine 05/04/23 Milton Schumacher [address] [facility] [place] [phone] Referring Ent - Otolaryngology 03/04/24 Vineyard Tender Relationship Specialty Start Date End Date Clinic, Jessica Valiente [address] [facility] [place] [address] PCP - General 01/21/24 Juliette Zamorano NP [address] [place] [address] Referring Family Medicine 05/04/23 Milton Schumacher MD [address] [place] [address] Referring Ent - Otolaryngology 03/04/24 Vineyard Tender Relationship Specialty Start Date End Date Clinic, Jessica Valiente [address] [facility] [place] [address] PCP - General 01/21/24 Juliette Zamorano NP [address] [facility] [place] [address] Referring Family Medicine 05/04/23 Vineyard Tender Relationship Specialty Start Date End Date Clinic, Jessica Valiente [address] [facility] [place] [address] PCP - General 01/21/24 Juliette Zamorano NP [address] [place] [address] Referring Family Medicine 05/04/23 Milton Schumacher MD [address] [place] [address] Referring Ent - Otolaryngology 03/04/24 Juliette Zamorano NP [address] [place] [address] Referring Family Medicine 08/26/24 Vineyard Tender Relationship Specialty Start Date End Date Clinic, Ferndaleelliot Valiente [address] [facility] [address] PCP - General 01/21/24 Juliette Zamorano NP [address] [place] [phone] Referring Family Medicine 05/04/23 Milton Schumacher MD [address] [place] [phone] Referring Ent - Otolaryngology 03/04/24 Juliette Zamorano NP [address] [place], [place] [address] Referring Family Medicine 08/26/24 Team Status: Active Member Role Status Dates [facility] Family Provider Active Juliette GOTTI, SEAMER OPERATOR-C Primary Care Provider Activ e Team Status: Inactive Member Role Status Dates Juliette GOTTI, SEAMER OPERATOR-C Primary Care Provider Activ e Start: November 18, 2024 End: November 18, 2024 Juliette GOTTI, SEAMER OPERATOR-C Attending Provider Active Start: November 18, 2024 End: November 18, 2024 Team Status: Inactive Member Role Status Dates [facility] Primary Care Provider A ctive Start: November 25, 2024 End: November 25, 2024 DANIELLE Marrero Attending Provider Active Star t: November 25, 2024 End: November 25, 2024 DANIELLE Marrero Referring Provider Active Star t: November 25, 2024 End: November 25, 2024 Team Status: Inactive Member Role Status Dates Juliette GOTTI, SEAMER OPERATOR-C Primary Care Provider Activ e Start: February 17, 2025 End: February 17, 2025 Juliette GOTTI, SEAMER OPERATOR-C Attending Provider Active Start: February 17, 2025 End: February 17, 2025 Vineyard Tender Relationship Specialty Start Date End Date Jessica Ricketts [facility] [address] [place] [address] PCP - General 01/21/24 Juliette Zamorano NP [address] [place] [address] Referring Family Medicine 05/04/23 Milton Schumacher MD [address] [place] [phone] Referring Ent - Otolaryngology 03/04/24 Juliette Zamorano NP [address] [place], [place] [address] Referring Family Medicine 08/26/24 Vineyard Tender Relationship Specialty Start Date End Date [employer], [facility] [address] [place] [address] PCP - General 01/21/24 Juliette Zamorano NP [address] [place] [phone] Referring Family Medicine 05/04/23 Milton Schumacher MD [address] [place] [phone] Referring Ent - Otolaryngology 03/04/24 Juliette Zamorano NP [address] [place], [place] [phone] Referring Family Medicine 08/26/24 Team Status: Active Member Role/Relationship Status Dates [facility] Family Provider Active Juliette GOTTI, SEAMER OPERATOR-C Primary Care Provider Activ e Team Status: Inactive Member Role/Relationship Status Dates Juliette GOTTI, SEAMER OPERATOR-C Primary Care Provider Activ e Start: February 17, 2025 End: February 17, 2025 Juliette GOTTI, SEAMER OPERATOR-Jaymie Attending Provider Active Start: February 17, 2025 End: February 17, 2025 Team Status: Inactive Member Role/Relationship Status Dates Juliette GOTTI, SEAMER OPERATOR-C Primary Care Provider Activ e Start: May 19, 2025 End: May 19, 2025 Juliette Jaun VSC, SEAMER OPERATOR-C Attending Provider Active Start: May 19, 2025 End: May 19, 2025 Team Status: Active Member Role/Relationship Status Dates Juliette RENEEC, SEAMER OPERATOR-C Primary Care Provider Activ e Team Status: Inactive Member Role/Relationship Status Dates Juliette Zamorano VSC, SEAMER OPERATOR-C Primary Care Provider Activ e Start: June 03, 2025 End: June 03, 2025 Juliette Zamorano VSC, SEAMER OPERATOR-C Attending Provider Active Start: June 03, 2025 End: June 03, 2025 Juliette Zamorano VSC, SEAMER OPERATOR-C Referring Provider Active Start: June 03, 2025 End: June 03, 2025 Team Status: Inactive Member Role/Relationship Status Dates Juliette Zamorano VSC, SEAMER OPERATOR-C Primary Care Provider Activ e Start: May 19, 2025 End: May 19, 2025 Juliette Zamorano VSC, SEAMER OPERATOR-C Attending Provider Active Start: May 19, 2025 End: May 19, 2025 Team Status: Inactive Member Role/Relationship Status Dates Juliette RENEEC, SEAMER OPERATOR-C Primary Care Provider Activ e Start: June 03, 2025 End: June 03, 2025 Juliette RENEEC, SEAMER OPERATOR-C Attending Provider Active Start: June 03, 2025 End: June 03, 2025 Juliette Zamorano VSC, SEAMER OPERATOR-C Referring Provider Active Start: June 03, 2025 End: June 03, 2025 Team Status: Inactive Member Role/Relationship Status Dates Juliette Zamorano VSC, SEAMER OPERATOR-C Primary Care Provider Activ e Start: June 19, 2025 End: June 19, 2025 Juliette Zamorano VSC, SEAMER OPERATOR-C Referring Provider Active Start: June 19, 2025 End: June 19, 2025 Selina Linda NP, SEAMER OPERATOR-C Attending Provider Active Start: June 19, 2025 End: June 19, 2025 FOR RECORDS PERTAINING TO PATIENTS WHO ARE OR HAVE BEEN ENROLLED IN A CHEMICAL DEPENDENCY/SUBSTANCEABUSE PROGRAM, SOME INFORMATION MAY BE OMITTED. This clinical summary was aggregated from multiple sources. Caution should be exercised in using it in the provision of clinical care. This summary normalizes information from multiple sources, and as a consequence, information in this document may materially change the coding, format and clinical context of patient data. In addition, data may be omitted in some cases. CLINICAL DECISIONS SHOULD BE BASED ON THE PRIMARY CLINICAL RECORDS. [facility]. provides no warranty or guarantee of the accuracy or completeness of information in this document.
== END | disposition home or self-care (01) ==
LOC: SL 19:50
PROVIDERS: PCP Nurse Practitioner Family; Referring Provider Nurse Practitioner Family; Visit Provider Nurse Practitioner Family
DX: G47.33 Obstructive sleep apnea (adult) (pediatric) (principal)
CPT/HCPCS: 95811

== ENCOUNTER → 2025-07-21 | Outpatient (CLI) | payer MEDICAID, SELFPAY | END | disposition home or self-care (01) | LOC: SL 13:22 | PROVIDERS: PCP Nurse Practitioner Family; Visit Provider Nurse Practitioner Family | DX: Z46.89 Encounter for fitting and adjustment of other specified devices (principal) ==